=== PATIENT | male | born 1940 | race Caucasian/White ===

== ENCOUNTER 2016-10-11 20:13 | Inpatient (IN) ==
[2016-10-11] MEDS ORDERED: ACETAMINOPHEN 325 MG TABLET PO ONE (21:09)
[2016-10-11] MEDS ORDERED: ACETAMINOPHEN 325 MG TABLET ONE (21:21)
--- NOTE | 2016-10-11 21:25 | Emergency Department Note ---
Krista Benton Kasabria, am scribing for, and in the presence of, Galina Carson DO 21 :18. IAlli Debra, DO, personally performed the services described in this documentation, ascribed by Emeka Velasco in my presence, and it is both accurate and complete . Arrival - Arrival Chief Complaint: Fever Stated Complaint: CA PT/FEVER ED Nursing Triage Note: Patient complains of elevated temp of 103.0 at home. Patient has leukemia and last recieved chemotherapy on Wednesday. Temp 100.7 upon triage. Patient denies n/v but complains of persistent headache. Dr. Sanz is patient's oncologist. Patient has a history of HLD, HTN, and DM. Mode of Arrival: Wheelchair Limitations: No Limitations Source: Patient Time Seen by Provider: 10/11/16 21:08 - History of Present Illness HPI Narrative: This is a 76 y/o white male presenting to the ED with c/o elevated temperature of 103 at home. Pt is receiving chemotherapy for leukemia and his last treatment was Wednesday. Pt's temperature was 100.7 at triage. Pt denies n/v/d and states he has been constipated with the last BM being one week ago. He is a pt of Dr. Sanz. He has a PMHx of HLD, HTN, and DM. Pt feels better when laying flat. He denies taking any pain medications or medications for his fever. Consistency: constant Severity: moderate Allergies/Adverse Reactions: Allergies Allergy/AdvReac Type Severity Reaction Status Date / Time No Known Allergies Allergy Unverified 09/07/16 09:28 Home Medications: Home Medications Medication Instructions Recorded Confirmed Type Apixaban [Eliquis] 5 mg PO BID 10/11/16 10/11/16 History Atorvastatin [Lipitor] 40 mg PO DAILY 10/11/16 10/11/16 History Ezetimibe [Zetia] 10 mg PO DAILY 10/11/16 10/11/16 History Glimepiride [Amaryl] 4 mg PO BID W/MEALS 10/11/16 10/11/16 History Insulin Aspart [NovoLOG FlexPen] 10 unit SUBCUT BID 10/11/16 10/11/16 History Losartan [Cozaar] 50 mg PO DAILY 10/11/16 10/11/16 History Review of System - Review of System 12 point system: reviewed and no additional remarkable complaints except as stated - Review of System Constitutional: Present: fever (103). Absent: chills, weakness Eyes: Absent: discharge, vision change Respiratory: Absent: cough, respiratory distress, wheezing Cardiovascular: Absent: chest pain, dyspnea on exertion Gastrointestinal: Present: abdominal pain (mild tenderness ), constipation. Absent: nausea, vomiting, diarrhea Genitourinary male: Absent: dysuria Musculoskeletal: Absent: arm pain, back pain, leg pain, neck pain Skin: Present: other (ecchymosis to upper and lower extremities ). Absent: rash Neurological: Absent: headache, weakness, confusion, vertigo Psychiatric: Absent: anxiety Endocrine: Absent: fatigue Hematological/Lymphatic: Absent: easy bleeding Allergic/Immunologic: Absent: facial swelling Medical,Surgical,& Family Hx - Medical History Cardio: History of: Hypertension Neurology: No history of: Seizures Endocrine: History of: Diabetes Mellitus (IDDM), Dyslipidemia Hematology: History of: Hematologic Cancer (leukemia) - Family History Family History: Reports;: Family Diabetes - Social History Smoking Status: Never smoker Frequency of Alcohol Use: None Type of Drug Use: None Exam Vital Signs: Vital Signs Temperature 97.6 F 10/11/16 22:59 Pulse Rate 91 H 10/11/16 21:08 Respiratory Rate 20 10/11/16 21:08 Blood Pressure 147/86 10/11/16 21:08 O2 Sat by Pulse Oximetry 95 10/11/16 20:41 - General General appearance: alert, in no apparent distress, obese - Head Head exam: Present: atraumatic, normocephalic, normal inspection - Eye Eye exam: Present: normal appearance, PERRL, EOMI - ENT ENT exam: Present: normal exam, normal oropharynx, mucous membranes moist, TM's normal bilaterally, normal external ear exam - Neck Neck exam: Present: normal inspection, full ROM, trachea midline. Absent: tenderness - Chest Chest inspection: Present: normal inspection, symmetric chest wall rise. Absent : tenderness - Respiratory Respiratory exam: Present: normal lung sounds bilaterally - Cardiovascular Cardiovascular exam: Present: normal rhythm, tachycardia (mildly ), normal heart sounds. Absent: regular rate - Abdominal Exam Abdominal exam: Present: soft, distention (obese ), tenderness (mildly ), normal bowel sounds - Extremities Exam Extremities exam: Present: normal inspection, full ROM, normal capillary refill. Absent: tenderness, pedal edema, calf tenderness - Back Exam Back exam: Present: normal inspection, full ROM. Absent: tenderness - Neurological Exam Neurological exam: Present: alert, oriented X3, CN II-XII intact, normal gait, reflexes normal - Psychiatric Psychiatric exam: Present: normal affect, normal mood - Skin Skin exam: Present: warm, dry, intact. Absent: normal color (ecchymosis to upper and lower extremities ) Course Course Narrative: spoke with DR Sanz who will admit pt. pt is in stable condition Results - Labs CBC & BMP: 10/11/16 21:25 10/11/16 21:36 Lab Results: I have reviewed the patients labs - Diagnostic Findings Procedure: Chest x-ray: image reviewed by me (no acute process) Disposition Clinical Impression: Fever of unknown origin Case discussed with: patient, patient's family Disposition: Still a Patient Condition: Stable Time of Disposition: 23:05
[2016-10-11 22:07] LABS: Hematocrit 27.6 VOL% (42.0-52.0); Hemoglobin 9.8 GM/DL (14.0-18.0); Immature Granulocytes % 3.3 %; Immature Granulocytes Absolute 0.02 #; Lymphocytes # 0.5 10*3/uL (1.4-4.0); Lymphocytes % 81.7 % (21.2-54.2); Mean Corpuscular HGB Conc 35.5 GM/DL (32-36); Mean Corpuscular Hemoglobin 30 PG (27-34); Mean Corpuscular Volume 85.7 FL (87-102); Mean Platelet Volume 9.1 FL (9.6-12.0); Monocytes # 0.1 10*3/uL (0.11-0.8); Monocytes % 8.3 % (1.7-12.7); Neutrophils % 6.7 % (38.7-73.9); Red Blood Count 3.22 MC/CUMM (3.8-5.5); Red Cell Distribution Width 14.8 % (9.3-17.3)
[2016-10-11 22:09] LABS: Albumin 2.9 G/DL (3.4-5.0); Bilirubin,Total 0.8 MG/DL (0.2-1.0); Calcium 7.7 MG/DL (8.5-10.1); Osmolality,Calculated 273.8 MOS/KG (273-304); Potassium 4.2 MMOL/L (3.5-5.1); Total Protein 5.9 G/DL (6.4-8.3)
[2016-10-11 22:11] LABS: Platelet Count 21 T/CUMM (130-400); White Blood Count 0.6 T/CUMM (4-12)
[2016-10-11 22:47] LABS: Apearance,Urine CLEAR (Clear); Bilirubin,Urine Negative (Negative); Blood, Urine Negative (Negative); Glucose,Urine (UA) Negative (Negative); Ketones,Urine Negative (Negative); Mucus,Urine Occasional /LPF (Occasional); Nitrite,Urine Negative (Negative); Protein,Urine 30 MG/DL; RBC,Urine 2 /HPF (0-4); Squamous Epithelial Cell,Urine Occasional /HPF (0-10); Urine Color Yellow (Yellow); Urine Specific Gravity 1.013 (1.001-1.035); WBC,Urine <1 /HPF (0-6)
[2016-10-11] MEDS ORDERED: VANCOMYCIN INJ 1,000 MG in SODIUM CHLORIDE 0.9% 250 ML IV STA (23:03)
[2016-10-11] MEDS ORDERED: ACETAMINOPHEN 325 MG TABLET PO PRN (23:05)
[2016-10-11] MEDS ORDERED: chlorproMAZINE INJ 50 MG in SODIUM CHLORIDE 0.9% 100 ML IV PRN (23:05)
[2016-10-11] MEDS ORDERED: BENZTROPINE 2 MG/2 ML AMP IV PRN (23:05)
[2016-10-11] MEDS ORDERED: traMADol 50 MG TABLET PO PRN (23:05)
[2016-10-11] MEDS ORDERED: PROMETHAZINE INJ 25 MG in SODIUM CHLORIDE 0.9% 50 ML IV PRN (23:05)
[2016-10-11] MEDS ORDERED: LOPERAMIDE 2 MG CAPSULE PO PRN ×2 (23:05)
[2016-10-11] MEDS ORDERED: MYLANTA/LIDO VISC 2:1 300 ML BOTTLE SWISH/SPIT PRN (23:05)
[2016-10-11] MEDS ORDERED: ALPRAZolam 0.25 MG TABLET PO PRN (23:05)
[2016-10-11] MEDS ORDERED: ONDANSETRON 4 MG/2 ML VIAL IV PRN (23:05)
[2016-10-11] MEDS ORDERED: chlorproMAZINE 25 MG TABLET PO PRN (23:05)
[2016-10-11] MEDS ORDERED: ALUMINUM/MAGNES/SIMETH MAX STR 30 ML UDCUP PO PRN (23:05)
[2016-10-11] MEDS ORDERED: MYLANTA/LIDO VISC 2:1 300 ML BOTTLE SWISH/SWAL PRN (23:05)
[2016-10-11] MEDS ORDERED: chlorproMAZINE INJ 25 MG in SODIUM CHLORIDE 0.9% 100 ML IV PRN (23:05)
[2016-10-11] MEDS ORDERED: TEMAZEPAM 7.5 MG CAPSULE PO PRN (23:05)
[2016-10-11] MEDS ORDERED: guaiFENesin 200 MG/10 ML UDCUP PO PRN (23:05)
[2016-10-11] MEDS ORDERED: diphenhydrAMINE CAP 25 MG CAPSULE PO PRN (23:05)
[2016-10-11] MEDS ORDERED: MAGNESIUM HYDROXIDE SUSP 30 ML UDCUP PO PRN (23:05)
[2016-10-11 23:24] LABS: Magnesium 1.7 MG/DL (1.8-2.4); Uric Acid 5.8 MG/DL (3.5-7.2)
[2016-10-11] MEDS ORDERED: VANCOMYCIN 1,000 MG VIAL ONE (23:45)
[2016-10-12 00:10] LABS: Anisocytosis 1+; Lymphocytes 90 % (20-55); Ovalocytes Few; Total Cells Counted 100
[2016-10-12 00:11] LABS: Platelet Estimate Decreased
[2016-10-12] MEDS: SODIUM CHLORIDE 0.9% 1,000 ML IV SCH ×2 (01:08→14:43)
[2016-10-12] MEDS: LACTULOSE 20 GM/30 ML UDCUP PO PRN (08:49)
--- NOTE | 2016-10-12 09:15 | XRay Report ---
Portable chest Date: 10/11/2016 Clinical history: Fever Comparison: 06/10/2011 Technique: Portable AP sitting chest Findings: The heart is normal in size with stable left subclavian venous access catheter. Chronic scarring in the lungs with atelectasis at the lung bases. Stable mediastinum with degenerative changes. Prior cervical fusion.. Impression: Limited expiratory chest with chronic scarring in the lungs. Minimal atelectasis remaining at the lung bases. PROCEDURE INTERPRETED AT [facility] DEPARTMENT OF RADIOLOGY Final Report Signed by: Dr. Jaimie Julio
--- NOTE | 2016-10-12 09:22 | XRay Report ---
Exam: XR KUB Date: 10/11/2016 9:08 PM Comparison: 11/24/2010 Indication: Generalized abdominal pain Technique:[Supine abdomen] Findings: Decreased but persistent gaseous distention of the small bowel. There is residual air in the colon. Stable IVC filter with degenerative changes. Impression: Reduced but persistent gaseous distention of the small bowel could be related ileus, developing SBO, etc. Follow-up x-ray may be helpful if symptoms persist. IVC filter. PROCEDURE INTERPRETED AT [facility] DEPARTMENT OF RADIOLOGY Final Report Signed by: Dr. Jaimie Julio
[2016-10-12 10:17] LABS: Hemoglobin 8.4 GM/DL (14.0-18.0); Immature Granulocytes % 2.5 %; Immature Granulocytes Absolute 0.01 #; Lymphocytes # 0.3 10*3/uL (1.4-4.0); Lymphocytes % 82.5 % (21.2-54.2); Mean Corpuscular Hemoglobin 30 PG (27-34); Mean Corpuscular Volume 85.1 FL (87-102); Mean Platelet Volume 12.3 FL (9.6-12.0); Monocytes % 7.5 % (1.7-12.7); Neutrophils % 7.5 % (38.7-73.9); Red Blood Count 2.82 MC/CUMM (3.8-5.5); Red Cell Distribution Width 14.7 % (9.3-17.3)
[2016-10-12 10:21] LABS: Platelet Count 17 T/CUMM (130-400); White Blood Count 0.4 T/CUMM (4-12)
[2016-10-12 10:54] LABS: Lymphocytes 90 % (20-55); Microcytosis 1+; Total Cells Counted 100
[2016-10-12 10:55] LABS: Ovalocytes 1+; Platelet Estimate Decreased
--- NOTE | 2016-10-12 15:22 | Oncology History&Physical ---
Assessment and Plan (1) Acute myelogenous leukemia Status: Acute Assessment and plan: We will cover the patient with aggressive antibiotics at this time. We will transfuse as needed. We will await blood culture results. Current Visit: Yes History of Present Illness Chief complaint: Fever History of present illness: Mr. Edwards is a 76 year old male with history of non-Hodgkin's lymphoma approximately 5 years prior. He was treated by Dr. Ricki Jung at that time with FCR chemotherapy. Over the last several months he has had a worsening pancytopenia. This was evaluated with bone marrow biopsy and is notable for acute myelogenous leukemia. The patient has recently received his second monthly dose of decitabine chemotherapy administered days 1 through 5 intravenously. He received blood products 4 days prior at [facility]. He came in with a 24 hour history of high fever up to 102 at home with associated shaking and chills Home Medications Medication Instructions Recorded Confirmed Type Apixaban [Eliquis] 5 mg PO BID 10/11/16 10/11/16 History Atorvastatin [Lipitor] 40 mg PO DAILY 10/11/16 10/11/16 History Ezetimibe [Zetia] 10 mg PO DAILY 10/11/16 10/11/16 History Glimepiride [Amaryl] 4 mg PO BID W/MEALS 10/11/16 10/11/16 History Insulin Aspart [NovoLOG FlexPen] 10 unit SUBCUT BID 10/11/16 10/11/16 History Losartan [Cozaar] 50 mg PO DAILY 10/11/16 10/11/16 History Allergies Allergy/AdvReac Type Severity Reaction Status Date / Time No Known Allergies Allergy Unverified 09/07/16 09:28 Medical,Surgical,& Family Hx - Medical History Cardio: History of: Hypertension Neurology: No history of: Seizures HEENT: History of: HEENT Problems (sinuses) Endocrine: History of: Diabetes Mellitus (IDDM), Dyslipidemia Hematology: History of: Hematologic Cancer (leukemia) - Surgical History Cardiac Surgeries: Patient Denies: Cardiac Catheterization HEENT Surgeries: Patient denies: Tonsilectomy & Adenoidectomy Abdominal Surgeries: Surgical HX of: Appendectomy (2010), Colonoscopy - Family History Family History: Reports;: Family Diabetes - Social History Smoking Status: Never smoker Frequency of Alcohol Use: None Type of Drug Use: None - Constitutional Constitutional: Present: chills, fatigue, fever(s), night sweats, weakness - EENT Eye: Absent: loss of vision Ears: Absent: ear discharge, ear pain Nose, mouth and throat: Absent: neck mass, neck pain, odynophagia, sore throat - Respiratory Respiratory: Absent: hemoptysis Exam - Constitutional Vitals: Period Temp Pulse Resp BP Sys/Asencio Pulse Ox Last 24 Hr 97.4 F-102.1 F 61-91 18-22 114-185/62-86 93-99 General appearance: mild distress, over weight - Head Head Exam: Present: normal inspection, normocephalic - Eye Eye Exam: Present: EOMI. Absent: conjunctival injection, periorbital swelling, scleral icterus Pupils: Present: PERRL - ENT ENT exam: Present: normal external ear exam - Neck Neck exam: Absent: lymphadenopathy - Respiratory Respiratory exam: Present: CTAB. Absent: accessory muscle use, chest wall tenderness - Cardiovascular Cardiovascular exam: Present: RRR - GI/Abdominal GI/Abdominal exam: Absent: ascites, distended, guarding - Neurological Exam Neurological exam: Present: alert, oriented X3 - Psychiatric Psychiatric exam: Present: normal affect, normal mood Results - Labs CBC & BMP: 10/12/16 09:21 10/11/16 21:36
[2016-10-12] MEDS: VANCOMYCIN INJ 1,750 MG in SODIUM CHLORIDE 0.9% 500 ML IV SCH (16:15)
[2016-10-12] MEDS ORDERED: GLUCAGON 1 MG VIAL IM PRN (16:57)
[2016-10-12] MEDS ORDERED: DEXTROSE 50% 25 GM/50 ML VIAL IV PRN (16:57)
[2016-10-12] MEDS: INSULIN REGULAR 100 UNIT/ML SUBCUT SCH (20:30)
[2016-10-13] MEDS: VANCOMYCIN INJ 1,750 MG in SODIUM CHLORIDE 0.9% 500 ML IV SCH ×2 (04:06→20:25)
[2016-10-13 05:11] LABS: Basophils % 1.7 % (0.0-0.8); Eosinophils % 1.7 % (0.00-10.9); Hemoglobin 7.4 GM/DL (14.0-18.0); Lymphocytes # 0.5 10*3/uL (1.4-4.0); Lymphocytes % 86.7 % (21.2-54.2); Mean Corpuscular HGB Conc 35.2 GM/DL (32-36); Mean Corpuscular Hemoglobin 30 PG (27-34); Mean Corpuscular Volume 85.7 FL (87-102); Monocytes % 6.7 % (1.7-12.7); Neutrophils % 3.2 % (38.7-73.9); Red Blood Count 2.45 MC/CUMM (3.8-5.5); Red Cell Distribution Width 14.6 % (9.3-17.3)
[2016-10-13 05:19] LABS: Platelet Count 27 T/CUMM (130-400); White Blood Count 0.6 T/CUMM (4-12)
[2016-10-13 05:29] LABS: Calcium 7.4 MG/DL (8.5-10.1)
[2016-10-13 05:30] LABS: Magnesium 1.8 MG/DL (1.8-2.4); Osmolality,Calculated 276.7 MOS/KG (273-304); Potassium 3.8 MMOL/L (3.5-5.1)
[2016-10-13 05:48] LABS: Lymphocytes 90 % (20-55); Total Cells Counted 100
[2016-10-13 05:50] LABS: Platelet Estimate Decreased
[2016-10-13 05:51] LABS: Hypochromasia 2+; Microcytosis 2+; Ovalocytes Few
[2016-10-13] MEDS: INSULIN REGULAR 100 UNIT/ML SUBCUT SCH ×2 (07:30→16:48)
[2016-10-13] MEDS ORDERED: GLUCAGON 1 MG VIAL IM PRN (08:37)
[2016-10-13] MEDS ORDERED: DEXTROSE 50% 25 GM/50 ML VIAL IV PRN (08:37)
[2016-10-13] MEDS ORDERED: SODIUM CHLORIDE 0.9% 250 ML IV PRN (08:39)
--- NOTE | 2016-10-13 08:42 | Oncology Progress Note ---
Assessment and Plan (1) Acute myelogenous leukemia Status: Acute Assessment and plan: We will cover the patient with aggressive antibiotics at this time. We will transfuse as needed. We will await blood culture results. Current Visit: Yes Oncology Subjective PN Interval history: Patient with acute myelogenous leukemia admitted with fever. Patient with 100.4 temp this a.m. He appears in no acute distress. He does report a mild headache and some right lower quadrant tenderness. His lungs are clear. He is anemic and red blood cells will be ordered today. His blood cultures are negative. Voriconazole is to be instituted. Platelets were given yesterday with acceptable parameters today. Exam - Constitutional Vitals: Period Temp Pulse Resp BP Sys/Asencio Pulse Ox Last 24 Hr 97.6 F-102.1 F 66-80 18-20 127-234/59-98 92-95 Results - Labs CBC & BMP: 10/13/16 04:51 10/13/16 04:51
[2016-10-13] MEDS: LACTULOSE 20 GM/30 ML UDCUP PO PRN (09:27)
[2016-10-13] MEDS: VORICONAZOLE INJ 400 MG in SODIUM CHLORIDE 0.9% 100 ML IV SCH (09:29)
--- NOTE | 2016-10-13 16:35 | Physician Query Form ---
CLICK EDIT DOCUMENT TO SELECT QUERY ANSWER --> OK --> SIGN Enriqueta Morales RN Clinical [employer]ical [employer] Internship W) [phone] (f) [phone] [email or web address] PROVIDERS: Make your selection(s) from the choices in EACH section by typing an "x" and enter comments in the comment section. Please use your independent medical judgment in providing your response. This request does not imply that any particular answer is desired or expected. CLINICAL INDICATORS: (Providers should not edit this section) Acute myelogenous leukemia" "recieving chemotherapy for leukemia. last treatment was Wednesday" "worsening pancytopenia" WBC 0.6, RBC 3.22, PLT 21. Transfused 1 unit of PLT. Based on the above, could you clarify the appropriate diagnosis, if significant , that supports the above abnormalities and additional evaluation, monitoring, and/or treatment rendered: ( ) Chemo induced pancytopenia ( ) Not chemo induced pancytopenia ( x) Other, please specify: aml ( ) Clinically unable to determine COMMENTS: PLEASE ALSO DOCUMENT RESPONSE IN PROGRESS NOTES AND/OR DISCHARGE SUMMARY Use of terms such as suspected, likely, or probable (associated with a specific diagnosis that is being evaluated, monitored, or treated as if it exists) are acceptable and can be restated in the discharge summary if not ruled out. MTDD
[2016-10-13] MEDS: SODIUM CHLORIDE 0.9% 1,000 ML IV SCH ×2 (19:50→20:22)
[2016-10-14] MEDS: VORICONAZOLE INJ 400 MG in SODIUM CHLORIDE 0.9% 100 ML IV SCH ×3 (01:35→21:07)
[2016-10-14 06:25] LABS: Hematocrit 26.3 VOL% (42.0-52.0); Hemoglobin 9.4 GM/DL (14.0-18.0); Lymphocytes # 0.6 10*3/uL (1.4-4.0); Lymphocytes % 92.1 % (21.2-54.2); Mean Corpuscular HGB Conc 35.7 GM/DL (32-36); Mean Corpuscular Hemoglobin 30 PG (27-34); Mean Corpuscular Volume 83.8 FL (87-102); Mean Platelet Volume 11.5 FL (9.6-12.0); Monocytes % 1.6 % (1.7-12.7); Neutrophils % 6.3 % (38.7-73.9); Red Blood Count 3.14 MC/CUMM (3.8-5.5); Red Cell Distribution Width 14.1 % (9.3-17.3)
[2016-10-14 06:33] LABS: Platelet Count 22 T/CUMM (130-400); White Blood Count 0.6 T/CUMM (4-12)
[2016-10-14 06:53] LABS: Calcium 7.5 MG/DL (8.5-10.1); Magnesium 1.9 MG/DL (1.8-2.4); Osmolality,Calculated 275.8 MOS/KG (273-304)
[2016-10-14 06:57] LABS: Elliptocytes Few; Hypochromasia 1+; Lymphocytes 90 % (20-55); Microcytosis 1+; Platelet Estimate Decreased; Total Cells Counted 100
[2016-10-14] MEDS: SODIUM CHLORIDE 0.9% 1,000 ML IV SCH (08:06)
[2016-10-14] MEDS: INSULIN REGULAR 100 UNIT/ML SUBCUT SCH ×3 (08:06→21:06)
--- NOTE | 2016-10-14 09:04 | Oncology Progress Note ---
Assessment and Plan (1) Acute myelogenous leukemia Status: Acute Assessment and plan: We will cover the patient with aggressive antibiotics at this time. We will transfuse as needed. We will await blood culture results. Current Visit: Yes Oncology Subjective PN Interval history: AML with fever and neutropenia continuing on antibiotics with antifungal coverage added yesterday. Blood cultures are negative on admission. He is reporting bilateral lower abdominal tenderness. This is just above the pubic symphysis bilaterally. He had a small bowel movement within the last 24 hours. He does not report nausea. I have discussed ordering a CT scan of the abdomen though he has had breakfast and this will have to occur later this afternoon. He does not require transfusions today. His abdominal exam is basically unremarkable. His mood and affect are appropriate as well as his orientation and overall mental status. His daughter remains at bedside. Exam - Constitutional Vitals: Period Temp Pulse Resp BP Sys/Asencio Pulse Ox Last 24 Hr 97.5 F-100.1 F 54-72 18-22 105-198/51-90 95-99 Results - Labs CBC & BMP: 10/14/16 05:57 10/14/16 05:57
[2016-10-14] MEDS: VANCOMYCIN INJ 1,750 MG in SODIUM CHLORIDE 0.9% 500 ML IV SCH ×2 (12:11→23:49)
--- NOTE | 2016-10-14 14:19 | CT Report ---
CT abdomen pelvis w con Indication: Leukemia patient with fever and abdominal tenderness Comparison: CT chest abdomen pelvis dated December 04, 2015 Technique: Multiple axial tomographic images of the abdomen and pelvis were obtained after the administration of 100 cc Omnipaque 350 intravenous contrast. Findings: Mild dependent change of the lungs present. Grossly stable triangular subcentimeter opacity within the left lower lobe. Scattered small scarring within the lung bases. No worrisome focal hepatic abnormality. The gallbladder is grossly unremarkable. The pancreas is grossly unremarkable. The spleen is grossly unremarkable. The bilateral adrenal glands are grossly unremarkable. Grossly stable left renal cyst measuring up to 3.7 cm. No evidence of hydronephrosis. The urinary bladder is incompletely distended. The prostate and seminal vesicles are grossly unremarkable. There is no evidence of gastrointestinal obstruction or acute appendicitis. There is wall thickening of a short segment of sigmoid colon with surrounding fat stranding and small fluid suspicious for diverticulitis/colitis. Stable mild ishmael mesenteric appearance. Moderate atherosclerotic calcifications demonstrated. IVC filter present. Several of the legs of the IVC filter extend slightly beyond the lumen, similar to before. Visualized osseous and surrounding soft tissue structures appear grossly unchanged. Multilevel degenerative change of the spine present. IMPRESSION: Findings consistent with sigmoid colitis/diverticulitis. Other detailed findings as above. Findings discussed with nurse Lizeth Palafox at time of dictation. The CT exam was performed using one or more of the following dose reduction techniques: Automated exposure control, adjustment of the mA and/or kV according to patient size, or use of iterative reconstruction technique. PROCEDURE INTERPRETED AT [facility] DEPARTMENT OF RADIOLOGY Final Report Signed by: Dr Bright Warren
[2016-10-14] MEDS: LACTULOSE 20 GM/30 ML UDCUP PO PRN (15:43)
[2016-10-14] MEDS ORDERED: HEPARIN LOCK FLUSH 500 UNIT/5 ML SYRINGE IV ONE (18:36)
[2016-10-15 04:41] LABS: Hematocrit 25.8 VOL% (42.0-52.0); Hemoglobin 9.2 GM/DL (14.0-18.0); Lymphocytes # 0.5 10*3/uL (1.4-4.0); Lymphocytes % 92.6 % (21.2-54.2); Mean Corpuscular HGB Conc 35.7 GM/DL (32-36); Mean Corpuscular Hemoglobin 30 PG (27-34); Mean Corpuscular Volume 84.6 FL (87-102); Mean Platelet Volume 9.9 FL (9.6-12.0); Monocytes % 3.7 % (1.7-12.7); Neutrophils % 3.7 % (38.7-73.9); Red Blood Count 3.05 MC/CUMM (3.8-5.5)
[2016-10-15 04:51] LABS: Platelet Count 16 T/CUMM (130-400); White Blood Count 0.5 T/CUMM (4-12)
[2016-10-15 05:04] LABS: Magnesium 1.8 MG/DL (1.8-2.4); Osmolality,Calculated 276.5 MOS/KG (273-304); Potassium 4.2 MMOL/L (3.5-5.1)
[2016-10-15 05:21] LABS: Lymphocytes 90 % (20-55); Segmented Neutrophils 10 % (50-85); Total Cells Counted 100
[2016-10-15 05:22] LABS: Elliptocytes Few; Hypochromasia Slight; Microcytosis 1+; Platelet Estimate Decreased
[2016-10-15] MEDS: INSULIN REGULAR 100 UNIT/ML SUBCUT SCH ×3 (07:55→20:39)
--- NOTE | 2016-10-15 08:52 | Oncology Progress Note ---
Assessment and Plan (1) Acute myelogenous leukemia Status: Acute Assessment and plan: We will cover the patient with aggressive antibiotics at this time. We will transfuse as needed. We will await blood culture results. Current Visit: Yes Oncology Subjective PN Interval history: AML remaining on antibiotic therapy and blood transfusion support. CT is reviewed with findings consistent with diverticulitis. Mild abdominal pain is unchanged on interview and examination today. Temperature max 99. Labs are reviewed with platelets around 17 and hematocrit of 25. I will wait until tomorrow and likely transfuse both red blood cells and platelets. I have stopped his vancomycin as I do not feel it is helping his abdominal process and his blood cultures are negative Exam - Constitutional Vitals: Period Temp Pulse Resp BP Sys/Asencio Pulse Ox Last 24 Hr 97.0 F-99.0 F 63-71 18-20 123-178/58-79 94-98 Results - Labs CBC & BMP: 10/15/16 03:27 10/15/16 03:27
[2016-10-15] MEDS: VORICONAZOLE INJ 400 MG in SODIUM CHLORIDE 0.9% 100 ML IV SCH ×2 (09:35→20:39)
[2016-10-15] MEDS ORDERED: HEPARIN LOCK FLUSH 500 UNIT/5 ML SYRINGE IV ONE ×2 (11:10→15:37)
[2016-10-15] MEDS: LACTULOSE 20 GM/30 ML UDCUP PO PRN (13:00)
[2016-10-16 06:01] LABS: Hematocrit 25.5 VOL% (42.0-52.0); Hemoglobin 9.1 GM/DL (14.0-18.0); Lymphocytes # 0.4 10*3/uL (1.4-4.0); Lymphocytes % 86.4 % (21.2-54.2); Mean Corpuscular HGB Conc 35.7 GM/DL (32-36); Mean Corpuscular Hemoglobin 30 PG (27-34); Mean Corpuscular Volume 84.7 FL (87-102); Mean Platelet Volume 12.4 FL (9.6-12.0); Monocytes % 6.8 % (1.7-12.7); Neutrophils % 6.8 % (38.7-73.9); Red Blood Count 3.01 MC/CUMM (3.8-5.5); Red Cell Distribution Width 13.9 % (9.3-17.3)
[2016-10-16 06:15] LABS: Platelet Count 14 T/CUMM (130-400); White Blood Count 0.4 T/CUMM (4-12)
[2016-10-16 06:20] LABS: Hypochromasia 1+; Lymphocytes 100 % (20-55); Microcytosis 1+; Ovalocytes Slight; Platelet Estimate Decreased; Total Cells Counted 100
[2016-10-16] MEDS: INSULIN REGULAR 100 UNIT/ML SUBCUT SCH ×2 (07:48→19:14)
[2016-10-16] MEDS ORDERED: SODIUM CHLORIDE 0.9% 250 ML IV PRN (08:26)
--- NOTE | 2016-10-16 08:29 | Oncology Progress Note ---
Assessment and Plan (1) Diverticulitis Status: Acute Current Visit: Yes (2) Acute myelogenous leukemia Status: Acute Current Visit: Yes Oncology Subjective PN Interval history: Mr. Edwards has no new complaints today. He still has some tenderness in his lower abdomen consistent with diverticulitis which was seen on the CT scan. He is being covered with Fortaz at this point. His platelet count is at 14,000 today so we will give him 1 unit of platelets. He denies any hematuria, bright red blood per rectum, or melena. His hemoglobin is stable so I will hold off on transfusion of red blood cells today. Him and I briefly discussed his CODE STATUS and he would like to remain full code at this point but became very emotional while talking about this. Given his age and prognosis from his acute myelogenous leukemia, I do think he should reconsider this but I will defer that conversation to his primary oncologist. Hopefully this might become an issue this weekend and he will do well. I do not anticipate him being discharged home for at least a few more days. We are withholding granulocytes stimulating factor due to his acute leukemia. Exam - Constitutional Vitals: Period Temp Pulse Resp BP Sys/Asencio Pulse Ox Last 24 Hr 97.9 F-98.5 F 56-78 18-93 145-164/67-90 93-97 General appearance: no acute distress, over weight - Head Head Exam: Present: normocephalic, atraumatic - Eye Eye Exam: Present: EOMI Pupils: Present: PERRL - ENT ENT exam: Present: normal exam, normal oropharynx - Neck Neck exam: Absent: lymphadenopathy, thyromegaly - Respiratory Respiratory exam: Present: CTAB. Absent: wheezes - Cardiovascular Cardiovascular exam: Present: RRR. Absent: JVD, systolic murmur - GI/Abdominal GI/Abdominal exam: Present: soft. Absent: ascites, distended, mass - Neurological Exam Neurological exam: Present: alert, oriented X3 Results - Labs CBC & BMP: 10/16/16 05:22 10/15/16 03:27 Lab Results: I have reviewed the past 24 hour labs
[2016-10-16] MEDS: VORICONAZOLE INJ 400 MG in SODIUM CHLORIDE 0.9% 100 ML IV SCH ×2 (09:47→20:45)
[2016-10-17 05:36] LABS: Hematocrit 25.2 VOL% (42.0-52.0); Hemoglobin 8.9 GM/DL (14.0-18.0); Lymphocytes # 0.5 10*3/uL (1.4-4.0); Lymphocytes % 90.2 % (21.2-54.2); Mean Corpuscular HGB Conc 35.3 GM/DL (32-36); Mean Corpuscular Hemoglobin 30 PG (27-34); Mean Corpuscular Volume 84.6 FL (87-102); Mean Platelet Volume 10.1 FL (9.6-12.0); Monocytes % 3.9 % (1.7-12.7); Neutrophils % 5.9 % (38.7-73.9); Red Blood Count 2.98 MC/CUMM (3.8-5.5); Red Cell Distribution Width 13.9 % (9.3-17.3)
[2016-10-17 05:43] LABS: White Blood Count 0.5 T/CUMM (4-12)
[2016-10-17 05:44] LABS: Platelet Count 23 T/CUMM (130-400)
[2016-10-17 06:13] LABS: Hypochromasia Slight; Lymphocytes 100 % (20-55); Microcytosis 1+; Osmolality,Calculated 284.1 MOS/KG (273-304); Ovalocytes Slight; Platelet Estimate Decreased; Potassium 3.9 MMOL/L (3.5-5.1); Total Cells Counted 100
[2016-10-17] MEDS: INSULIN REGULAR 100 UNIT/ML SUBCUT SCH ×3 (08:36→20:04)
[2016-10-17] MEDS: VORICONAZOLE INJ 400 MG in SODIUM CHLORIDE 0.9% 100 ML IV SCH ×2 (08:40→20:01)
--- NOTE | 2016-10-17 10:24 | Oncology Progress Note ---
Assessment and Plan (1) Diverticulitis Status: Acute Current Visit: Yes (2) Acute myelogenous leukemia Status: Acute Current Visit: Yes Oncology Subjective PN Interval history: Mr. Edwards seems to be doing well today. He still has vague lower abdominal pain secondary to his known diverticulitis. His platelet count responded well to transfusion and is up to 23 today. His hemoglobin remained stable at 8.9. I will hold off on transfusing red cells. He remains afebrile. We will continue with IV antibiotics. He will likely be here at least 2-3 more days to receive antimicrobial therapy. He expressed to me this morning that he would like to be DNR if it comes to that. Exam - Constitutional Vitals: Period Temp Pulse Resp BP Sys/Asencio Pulse Ox Last 24 Hr 96.6 F-98.6 F 53-92 18-20 148-193/65-95 93-98 General appearance: normal weight, no acute distress - Head Head Exam: Present: normocephalic, atraumatic - Eye Eye Exam: Present: EOMI. Absent: scleral icterus Pupils: Present: PERRL - Neck Neck exam: Absent: lymphadenopathy, thyromegaly - Respiratory Respiratory exam: Present: CTAB. Absent: wheezes - Cardiovascular Cardiovascular exam: Present: RRR. Absent: JVD, systolic murmur - GI/Abdominal GI/Abdominal exam: Present: tenderness, soft. Absent: ascites, distended, mass - Neurological Exam Neurological exam: Present: alert, oriented X3 Results - Labs CBC & BMP: 10/17/16 04:24 10/17/16 04:24 Lab Results: I have reviewed the past 24 hour labs
[2016-10-17] MEDS: LACTULOSE 20 GM/30 ML UDCUP PO PRN (14:17)
[2016-10-18 06:16] LABS: Hematocrit 26.5 VOL% (42.0-52.0); Hemoglobin 9.3 GM/DL (14.0-18.0); Lymphocytes # 0.5 10*3/uL (1.4-4.0); Mean Corpuscular HGB Conc 35.1 GM/DL (32-36); Mean Corpuscular Hemoglobin 30 PG (27-34); Mean Corpuscular Volume 84.1 FL (87-102); Mean Platelet Volume 11.2 FL (9.6-12.0); Red Blood Count 3.15 MC/CUMM (3.8-5.5); Red Cell Distribution Width 13.6 % (9.3-17.3)
[2016-10-18 06:21] LABS: White Blood Count 0.5 T/CUMM (4-12)
[2016-10-18 06:22] LABS: Platelet Count 18 T/CUMM (130-400)
[2016-10-18 06:38] LABS: Calcium 8.2 MG/DL (8.5-10.1); Osmolality,Calculated 279.4 MOS/KG (273-304); Potassium 3.7 MMOL/L (3.5-5.1)
[2016-10-18 06:44] LABS: Hypochromasia 1+; Lymphocytes 100 % (20-55); Microcytosis 1+; Ovalocytes Slight; Platelet Estimate Decreased; Total Cells Counted 100
[2016-10-18] MEDS: INSULIN REGULAR 100 UNIT/ML SUBCUT SCH ×2 (08:06→20:32)
[2016-10-18] MEDS: VORICONAZOLE INJ 400 MG in SODIUM CHLORIDE 0.9% 100 ML IV SCH ×2 (08:47→20:33)
--- NOTE | 2016-10-18 09:15 | Oncology Progress Note ---
Assessment and Plan (1) Diverticulitis Status: Acute Current Visit: Yes (2) Acute myelogenous leukemia Status: Acute Current Visit: Yes Oncology Subjective PN Interval history: Mr. Edwards is essentially stable today. His hemoglobin is above 9 so he does not need red cell transfusion. His platelet count is at 18,000 but I will hold off on transfusion for now. I think we are getting close to where we could consider discharge home given his low neutrophil count we will keep in the hospital for now for further IV antibiotics. He has not any fevers. He is not having any bright red blood per rectum. His mood is improved and he does not seem as emotional during our conversations now. He is DNR for comes to that. Exam - Constitutional Vitals: Period Temp Pulse Resp BP Sys/Asencio Pulse Ox Last 24 Hr 97.8 F-98.4 F 54-63 18-20 149-179/65-76 93-96 General appearance: no acute distress, over weight - Head Head Exam: Present: normocephalic, atraumatic - Eye Eye Exam: Present: EOMI Pupils: Present: PERRL - ENT ENT exam: Present: normal exam, normal oropharynx - Neck Neck exam: Absent: lymphadenopathy, thyromegaly - Respiratory Respiratory exam: Present: CTAB. Absent: wheezes - Cardiovascular Cardiovascular exam: Present: RRR. Absent: JVD - GI/Abdominal GI/Abdominal exam: Present: soft. Absent: ascites, distended, mass - Neurological Exam Neurological exam: Present: alert, oriented X3 - Psychiatric Psychiatric exam: Present: normal affect, normal mood - Skin Skin exam: Present: warm, dry Results - Labs CBC & BMP: 10/18/16 05:38 10/18/16 05:38 Lab Results: I have reviewed the past 24 hour labs
[2016-10-18] MEDS: LACTULOSE 20 GM/30 ML UDCUP PO PRN (14:24)
[2016-10-18] MEDS ORDERED: HEPARIN LOCK FLUSH 500 UNIT/5 ML SYRINGE IV ONE (15:36)
[2016-10-19 06:12] LABS: Hematocrit 26.6 VOL% (42.0-52.0); Hemoglobin 9.4 GM/DL (14.0-18.0); Lymphocytes # 0.5 10*3/uL (1.4-4.0); Mean Corpuscular HGB Conc 35.3 GM/DL (32-36); Mean Corpuscular Hemoglobin 30 PG (27-34); Mean Platelet Volume 12.7 FL (9.6-12.0); Monocytes % 7.4 % (1.7-12.7); Neutrophils % 5.6 % (38.7-73.9); Red Blood Count 3.13 MC/CUMM (3.8-5.5); Red Cell Distribution Width 13.5 % (9.3-17.3)
[2016-10-19 06:30] LABS: Platelet Count 18 T/CUMM (130-400); White Blood Count 0.5 T/CUMM (4-12)
[2016-10-19 06:40] LABS: Calcium 8.1 MG/DL (8.5-10.1); Osmolality,Calculated 281.1 MOS/KG (273-304); Potassium 3.7 MMOL/L (3.5-5.1)
[2016-10-19 06:51] LABS: Lymphocytes 90 % (20-55); Total Cells Counted 100
[2016-10-19 06:52] LABS: Hypochromasia Slight; Microcytosis 1+; Ovalocytes Slight; Platelet Estimate Decreased
[2016-10-19] MEDS: INSULIN REGULAR 100 UNIT/ML SUBCUT SCH (08:01)
--- NOTE | 2016-10-19 08:48 | Discharge Summary ---
Hospital Course - Hospital Course Hospital Course: Patient with recently diagnosed acute myelogenous leukemia. He is status post 2 cycles of Dacogen therapy. He was admitted with fever. He has a small amount of suprapubic abdominal pain. This was consistent with diverticulitis seen on CT scan. His blood cultures were negative. Urinalysis is unremarkable. He has required both red blood cell and platelet transfusion while hospitalized and remains pancytopenic. His temperature curve is back to normal and he is tolerating oral intake. He will be discharged on 10 days of ciprofloxacin and Flagyl by mouth with Wednesday lab checks in the office. He has an office visit for November 02 for consideration of third cycle of chemotherapy physical exam shows pleasant mood and affect elderly white male obese body habitus nontender abdomen awake alert in no acute distress Diagnosis - Discharge Diagnosis (1) Acute myelogenous leukemia Status: Acute Discharge Plan - Discharge Medications No Action Insulin Aspart [NovoLOG FlexPen] 10 unit SUBCUT BID Ezetimibe [Zetia] 10 mg PO DAILY Atorvastatin [Lipitor] 40 mg PO DAILY Apixaban [Eliquis] 5 mg PO BID Losartan [Cozaar] 50 mg PO DAILY Glimepiride [Amaryl] 4 mg PO BID W/MEALS - Follow Up or Referral - Forms/Instructions Exam - Constitutional Vitals: Period Temp Pulse Resp BP Sys/Asencio Pulse Ox Last 24 Hr 97.6 F-98.5 F 56-63 16-20 153-195/65-81 92-95 Discharge Results Labs on day of discharge: Labs from last 24 hours 10/19/16 10/19/16 10/19/16 07:36 05:46 05:46 WBC 0.5 L* RBC 3.13 L Hgb 9.4 L Hct 26.6 L MCV 85.0 L MCH 30 MCHC 35.3 RDW 13.5 Plt Count 18 L* MPV 12.7 H Neut % (Auto) 5.6 L Lymph % (Auto) 87.0 H [place] % (Auto) 7.4 Eos % (Auto) 0.0 Baso % (Auto) 0.0 Neut # (Auto) 0.0 L Lymph # (Auto) 0.5 L [place] # (Auto) 0.0 L Eos # (Auto) 0.0 Baso # (Auto) 0.0 Total Counted 100 Immature Gran % 0.0 Nucleated RBC % 0.0 Immature Gran # 0.00 Lymphocytes 90 H Monocytes 10 Nucleated RBCs # 0.00 Platelet Estimate Decreased Hypochromasia Slight Microcytosis 1+ Ovalocytes Slight Sodium 142 Potassium 3.7 Chloride 103 Carbon Dioxide 30 Anion Gap 12.7 BUN 12 Creatinine 1.20 GFR Calculation 84 BUN/Creatinine Ratio 10.00 Glucose 83 POC Glucose 80 Calculated Osmolality 281.1 Calcium 8.1 L 10/18/16 19:48 WBC RBC Hgb Hct MCV MCH MCHC RDW Plt Count MPV Neut % (Auto) Lymph % (Auto) [place] % (Auto) Eos % (Auto) Baso % (Auto) Neut # (Auto) Lymph # (Auto) [place] # (Auto) Eos # (Auto) Baso # (Auto) Total Counted Immature Gran % Nucleated RBC % Immature Gran # Lymphocytes Monocytes Nucleated RBCs # Platelet Estimate Hypochromasia Microcytosis Ovalocytes Sodium Potassium Chloride Carbon Dioxide Anion Gap BUN Creatinine GFR Calculation BUN/Creatinine Ratio Glucose POC Glucose 343 H Calculated Osmolality Calcium DS: Provider Date of admission: 10/11/16 23:05 Primary care physician: Jesse Austin, Attending physician on admission: Fan Sanz MD Discharging clinician: Fan Sanz MD
[2016-10-19] MEDS: VORICONAZOLE INJ 400 MG in SODIUM CHLORIDE 0.9% 100 ML IV SCH (09:54)
[2016-10-19 16:11] VITALS: BP 164/82
== END 2016-10-19 16:34 | disposition home or self-care (01) | DRG 392 ==
LOC: N.ED 20:13 → N.EDINP 23:05 → N.4E 10-12 00:19
PROVIDERS: ADMIT Specialist; ATTEND Specialist

== ENCOUNTER 2016-10-29 13:50 | Inpatient (IN) ==
[2016-10-29] MEDS ORDERED: DEXTROSE 50% 25 GM/50 ML VIAL IV PRN (15:01)
[2016-10-29] MEDS ORDERED: GLUCAGON 1 MG VIAL IM PRN (15:01)
[2016-10-29] MEDS ORDERED: guaiFENesin 200 MG/10 ML UDCUP PO PRN (15:19)
[2016-10-29] MEDS ORDERED: ONDANSETRON 4 MG/2 ML VIAL IV PRN (15:19)
[2016-10-29] MEDS ORDERED: ALUMINUM/MAGNES/SIMETH MAX STR 30 ML UDCUP PO PRN (15:19)
[2016-10-29] MEDS ORDERED: PROMETHAZINE INJ 25 MG in SODIUM CHLORIDE 0.9% 50 ML IV PRN (15:19)
[2016-10-29] MEDS ORDERED: MAGNESIUM HYDROXIDE SUSP 30 ML UDCUP PO PRN (15:19)
[2016-10-29] MEDS ORDERED: MYLANTA/LIDO VISC 2:1 300 ML BOTTLE SWISH/SPIT PRN (15:19)
[2016-10-29] MEDS ORDERED: BENZTROPINE 2 MG/2 ML AMP IV PRN (15:19)
[2016-10-29] MEDS ORDERED: LOPERAMIDE 2 MG CAPSULE PO PRN ×2 (15:19)
[2016-10-29] MEDS ORDERED: ALPRAZolam 0.25 MG TABLET PO PRN (15:19)
[2016-10-29] MEDS ORDERED: ACETAMINOPHEN 325 MG TABLET PO PRN (15:19)
[2016-10-29] MEDS ORDERED: diphenhydrAMINE CAP 25 MG CAPSULE PO PRN (15:19)
[2016-10-29] MEDS ORDERED: chlorproMAZINE INJ 50 MG in SODIUM CHLORIDE 0.9% 100 ML IV PRN (15:19)
[2016-10-29] MEDS ORDERED: traMADol 50 MG TABLET PO PRN (15:19)
[2016-10-29] MEDS ORDERED: LACTULOSE 20 GM/30 ML UDCUP PO PRN (15:19)
[2016-10-29] MEDS ORDERED: MYLANTA/LIDO VISC 2:1 300 ML BOTTLE SWISH/SWAL PRN (15:19)
[2016-10-29] MEDS ORDERED: chlorproMAZINE 25 MG TABLET PO PRN (15:19)
[2016-10-29] MEDS ORDERED: chlorproMAZINE INJ 25 MG in SODIUM CHLORIDE 0.9% 100 ML IV PRN (15:19)
[2016-10-29] MEDS: SODIUM CHLORIDE 0.45% 1,000 ML IV SCH (16:36)
[2016-10-29] MEDS: cefTRIAXone 1,000 MG in SODIUM CHLORIDE 0.9% 100 ML IV SCH (16:37)
[2016-10-29] MEDS: FLUCONAZOLE INJ 400 MG in PREMIX 1 EACH IV SCH (18:03)
--- NOTE | 2016-10-29 18:06 | XRay Report ---
Exam: XR chest 1V portable Date: 10/29/2016 2:57 PM Indication: Leukemia fever Comparison: 10/11/2016 Technical: AP portable Findings: A subclavian port is present from a left-sided approach with power port catheter. The distal tip is in the superior vena cava. Lateral marginal osteophytes are present. No obvious infiltrate or effusion. Mediastinum is intact. Oxygen tubing is present. No pneumothorax. Impression: 1. Left-sided subclavian port catheter 2. No acute cardiopulmonary pathology 3. Degenerative spondylosis change thoracic spine. PROCEDURE INTERPRETED AT [facility] DEPARTMENT OF RADIOLOGY Final Report Signed by: Dr. Jesse Mendez
[2016-10-29] MEDS: INSULIN LISPRO 100 UNIT/ML SUBCUT SCH ×2 (21:05→21:09)
[2016-10-29] MEDS: INSULIN REGULAR 100 UNIT/ML SUBCUT SCH (21:05)
[2016-10-30 08:23] LABS: Hematocrit 24.1 VOL% (42.0-52.0); Hemoglobin 8.5 GM/DL (14.0-18.0); Lymphocytes # 0.4 10*3/uL (1.4-4.0); Lymphocytes % 88.4 % (21.2-54.2); Mean Corpuscular HGB Conc 35.3 GM/DL (32-36); Mean Corpuscular Hemoglobin 30 PG (27-34); Mean Corpuscular Volume 84.6 FL (87-102); Mean Platelet Volume 10.6 FL (9.6-12.0); Monocytes % 4.7 % (1.7-12.7); Neutrophils % 6.9 % (38.7-73.9); Platelet Count 46 T/CUMM (130-400); Red Blood Count 2.85 MC/CUMM (3.8-5.5); Red Cell Distribution Width 13.2 % (9.3-17.3); White Blood Count 0.4 T/CUMM (4-12)
[2016-10-30 08:50] LABS: Albumin 2.8 G/DL (3.4-5.0); Bilirubin,Total 0.5 MG/DL (0.2-1.0); Calcium 7.8 MG/DL (8.5-10.1); Osmolality,Calculated 283.5 MOS/KG (273-304); Potassium 4.1 MMOL/L (3.5-5.1); Total Protein 5.8 G/DL (6.4-8.3)
[2016-10-30 09:05] LABS: Hypochromasia 2+; Lymphocytes 80 % (20-55); Microcytosis 2+; Platelet Estimate Decreased; Segmented Neutrophils 20 % (50-85); Total Cells Counted 100
[2016-10-30] MEDS: LOSARTAN 25 MG TABLET PO SCH (09:39)
[2016-10-30] MEDS: SODIUM CHLORIDE 0.45% 1,000 ML IV SCH (09:40)
[2016-10-30] MEDS: INSULIN REGULAR 100 UNIT/ML SUBCUT SCH ×2 (10:26→17:34)
[2016-10-30] MEDS: INSULIN LISPRO 100 UNIT/ML SUBCUT SCH ×2 (10:26→21:23)
[2016-10-30] MEDS ORDERED: LIDOCAINE 2% VISCOUS 100 ML BOTTLE SWISH/SPIT PRN (11:57)
[2016-10-30] MEDS ORDERED: SODIUM CHLORIDE 0.9% 250 ML IV PRN (11:58)
--- NOTE | 2016-10-30 12:28 | Oncology History&Physical ---
Assessment and Plan (1) Acute myelogenous leukemia Status: Acute Assessment and plan: We will support with 2 units red blood cell transfusion today. We are using viscous lidocaine as needed odynaphasia. No thrush is noted. Continue IV fluids with gentle hydration. Patient is diabetic and is on sliding scale. History of coronary artery disease with anticoagulation discontinued secondary to thrombocytopenia. Current Visit: No History of Present Illness Chief complaint: Weakness History of present illness: Mr. Edwards is a 76 year old male With recent diagnosis of acute myelogenous leukemia. His history is notable for B-cell lymphoma treated with fludarabine based chemotherapy by Dr. Jung approximately 6-7 years prior. He was seen on Wednesday. He has received approximately 2 cycles of Dacogen intravenously. His platelets have showed a very mild response. He is still requiring red blood cells 2 of which will be given today. He was evaluated yesterday in the office with dehydration decreased p.o. intake and I done aphasia. He appears to have a large aphthous ulcer at the right posterior lower gumline which is inhibiting his oral intake. He denies fever at present Home Medications Medication Instructions Recorded Confirmed Type Apixaban [Eliquis] 5 mg PO BID 10/11/16 10/29/16 History Atorvastatin [Lipitor] 40 mg PO DAILY 10/11/16 10/29/16 History Ezetimibe [Zetia] 10 mg PO DAILY 10/11/16 10/29/16 History Glimepiride [Amaryl] 4 mg PO BID W/MEALS 10/11/16 10/29/16 History Insulin Aspart [NovoLOG FlexPen] 10 unit SUBCUT BID 10/11/16 10/29/16 History Losartan [Cozaar] 50 mg PO DAILY 10/11/16 10/29/16 History Amoxicillin/Clav Tab [Augmentin 875 mg PO BID 10/29/16 10/29/16 History Tab] Ciprofloxacin Tab [Cipro Tab] 500 mg PO BID 10/29/16 10/29/16 History metroNIDAZOLE TAB [Flagyl Cap/Tab] 500 mg PO BID 10/29/16 10/29/16 History Allergies Allergy/AdvReac Type Severity Reaction Status Date / Time No Known Allergies Allergy Unverified 09/07/16 09:28 Medical,Surgical,& Family Hx - Medical History Cardio: History of: Hypertension Neurology: No history of: Seizures HEENT: History of: HEENT Problems (sinuses) Endocrine: History of: Diabetes Mellitus (IDDM), Dyslipidemia Hematology: History of: Hematologic Cancer (leukemia) - Surgical History Cardiac Surgeries: Patient Denies: Cardiac Catheterization HEENT Surgeries: Patient denies: Tonsilectomy & Adenoidectomy Abdominal Surgeries: Surgical HX of: Appendectomy (2010), Colonoscopy - Family History Family History: Reports;: Family Diabetes - Social History Smoking Status: Never smoker - Constitutional Constitutional: Present: fatigue, malaise, weakness. Absent: fever(s), night sweats - EENT Eye: Absent: diplopia, loss of vision Ears: Absent: decreased hearing, ear discharge, ear pain Nose, mouth and throat: Present: dysphagia, odynophagia, sore throat. Absent: epistaxis, neck mass - Cardiovascular Cardiovascular ROS IM: Absent: chest pain - Respiratory Respiratory: Absent: cough, hemoptysis Exam - Constitutional Vitals: Period Temp Pulse Resp BP Sys/Asencio Pulse Ox Last 24 Hr 97.8 F-99.2 F 67-92 16-20 126-150/66-80 96-100 General appearance: mild distress, over weight - Head Head Exam: Present: normocephalic, atraumatic - Eye Eye Exam: Present: EOMI. Absent: conjunctival injection, periorbital swelling, scleral icterus Pupils: Present: PERRL - ENT ENT exam: Present: normal external ear exam - Neck Neck exam: Present: normal inspection. Absent: lymphadenopathy, thyromegaly - Respiratory Respiratory exam: Present: CTAB. Absent: accessory muscle use, chest wall tenderness - Cardiovascular Cardiovascular exam: Present: RRR - GI/Abdominal GI/Abdominal exam: Present: soft. Absent: ascites, distended, guarding - Extremities Exam Extremities exam: Absent: edema - Neurological Exam Neurological exam: Present: alert, oriented X3 Results - Labs CBC & BMP: 10/30/16 08:10 10/30/16 08:10
[2016-10-30] MEDS: cefTRIAXone 1,000 MG in SODIUM CHLORIDE 0.9% 100 ML IV SCH (14:43)
[2016-10-30] MEDS: FLUCONAZOLE INJ 400 MG in PREMIX 1 EACH IV SCH (17:35)
[2016-10-31] MEDS: SODIUM CHLORIDE 0.45% 1,000 ML IV SCH ×2 (04:20→16:41)
[2016-10-31] MEDS: INSULIN LISPRO 100 UNIT/ML SUBCUT SCH ×2 (08:01→20:19)
[2016-10-31] MEDS: INSULIN REGULAR 100 UNIT/ML SUBCUT SCH ×3 (08:01→16:41)
[2016-10-31 08:05] LABS: Hematocrit 27.3 VOL% (42.0-52.0); Hemoglobin 9.8 GM/DL (14.0-18.0); Lymphocytes # 0.5 10*3/uL (1.4-4.0); Lymphocytes % 87.5 % (21.2-54.2); Mean Corpuscular HGB Conc 35.9 GM/DL (32-36); Mean Corpuscular Hemoglobin 29 PG (27-34); Mean Corpuscular Volume 81.7 FL (87-102); Mean Platelet Volume 10.3 FL (9.6-12.0); Monocytes % 5.4 % (1.7-12.7); Neutrophils % 7.1 % (38.7-73.9); Red Blood Count 3.34 MC/CUMM (3.8-5.5); Red Cell Distribution Width 13.7 % (9.3-17.3)
[2016-10-31 08:08] LABS: Platelet Count 49 T/CUMM (130-400); White Blood Count 0.6 T/CUMM (4-12)
[2016-10-31 08:34] LABS: Lymphocytes 100 % (20-55); Total Cells Counted 100
[2016-10-31 08:35] LABS: Hypochromasia 1+; Microcytosis 1+; Ovalocytes Slight; Platelet Estimate Decreased
[2016-10-31 08:39] LABS: Albumin 2.6 G/DL (3.4-5.0); Bilirubin,Total 0.6 MG/DL (0.2-1.0); Calcium 7.5 MG/DL (8.5-10.1); Osmolality,Calculated 280.8 MOS/KG (273-304); Potassium 4.2 MMOL/L (3.5-5.1); Total Protein 5.6 G/DL (6.4-8.3)
--- NOTE | 2016-10-31 09:18 | Oncology Progress Note ---
Oncology Subjective PN Interval history: Acute myelogenous leukemia: Mr. Edwards is an elderly patient with acute myelogenous leukemia.Blood work today includes a white cell count of 600. He feels very weak today. He has some very vague chest tightness. I do not think this is cardiac but he is obese and elderly and it is possible. He was admitted with odynophagia. Heart sounds are relatively normal and he has a regular rhythm. His lungs are clear. Bowel sounds are present. Leukopenia: See above comments. Anemia: Hemoglobin of 9.8 today. Thrombocytopenia: Platelet count of 49,000 He has a remote history of non-Hodgkin's lymphoma. On physical examination, he is both chronically and acutely ill appearing. Lungs: He is tachypnea. His lungs are clear of any rubs, rales or rhonchi in his chest moves symmetrically. Cardiovascular: His heart rhythm is regular without murmur, gallop or rub. There is no jugular venous distention, clubbing or cyanosis. Abdomen: Mild pressure on his epigastric area did not elicit any pain. There are no definite masses or ascites. Exam - Constitutional Vitals: Period Temp Pulse Resp BP Sys/Asencio Pulse Ox Last 24 Hr 97.8 F-99.4 F 70-93 18-20 143-177/62-90 94-98 Results - Labs CBC & BMP: 10/31/16 07:54 10/31/16 07:54
[2016-10-31] MEDS: LOSARTAN 25 MG TABLET PO SCH (10:03)
[2016-10-31] MEDS: cefTRIAXone 1,000 MG in SODIUM CHLORIDE 0.9% 100 ML IV SCH (15:21)
[2016-10-31] MEDS: FLUCONAZOLE INJ 400 MG in PREMIX 1 EACH IV SCH (17:17)
[2016-11-01] MEDS: SODIUM CHLORIDE 0.45% 1,000 ML IV SCH (05:44)
[2016-11-01 06:41] LABS: Hematocrit 27.2 VOL% (42.0-52.0); Hemoglobin 9.6 GM/DL (14.0-18.0); Lymphocytes # 0.3 10*3/uL (1.4-4.0); Lymphocytes % 89.2 % (21.2-54.2); Mean Corpuscular HGB Conc 35.3 GM/DL (32-36); Mean Corpuscular Hemoglobin 29 PG (27-34); Mean Corpuscular Volume 82.7 FL (87-102); Monocytes % 5.4 % (1.7-12.7); Neutrophils % 5.4 % (38.7-73.9); Red Blood Count 3.29 MC/CUMM (3.8-5.5); Red Cell Distribution Width 13.2 % (9.3-17.3)
[2016-11-01 06:45] LABS: Platelet Count 46 T/CUMM (130-400); White Blood Count 0.4 T/CUMM (4-12)
[2016-11-01 07:01] LABS: Hypochromasia 1+; Lymphocytes 90 % (20-55); Total Cells Counted 100
[2016-11-01 07:02] LABS: Microcytosis 1+; Ovalocytes Few; Platelet Estimate Decreased
[2016-11-01 07:17] LABS: Albumin 2.5 G/DL (3.4-5.0); Bilirubin,Total 0.8 MG/DL (0.2-1.0); Calcium 7.8 MG/DL (8.5-10.1); Potassium 4.3 MMOL/L (3.5-5.1); Total Protein 5.4 G/DL (6.4-8.3)
[2016-11-01] MEDS: INSULIN REGULAR 100 UNIT/ML SUBCUT SCH ×2 (08:43→21:55)
--- NOTE | 2016-11-01 09:45 | Oncology Progress Note ---
Oncology Subjective PN Interval history: Acute myelogenous leukemia: Mr. Edwards is an elderly patient with acute myelogenous leukemia. This is advanced disease that appears to be refractory. He feels very weak today. He was admitted with odynophagia. Leukopenia: See above comments. His white cell count today is 400. Anemia:His hemoglobin today is 9.6. Thrombocytopenia: His platelet count today is 46,000. He has a remote history of non-Hodgkin's lymphoma. He is chronically ill with what probably is and stage disease.Renal function remains normal. His serum albumin is 2.5 reflecting malnutrition. He generally feels bad. He is weak. He is having bad dreams. He is having a great deal of generalized discomfort. We are continuing symptomatic supportive care. On physical examination his oral mucosa may appear a little atrophic but otherwise his pharynx and oral mucosa and tongue are normal. His voice is clear. He has no obvious neck masses. Breath sounds are somewhat coarse without rubs, rales or rhonchi. His chest moves symmetrically with respiration. He is somewhat tachypneic. Heart sounds are normal. He has abdominal protuberance but not necessarily distention and there is no obvious tenderness. Cranial nerves II through XII are intact and he has no focal neurologic deficits. Musculoskeletal examination reveals that he is generally weak. However, he appears to be fully oriented and alert. He is discouraged and the reasons are obvious. This is advanced, and stage disease. Exam - Constitutional Vitals: Period Temp Pulse Resp BP Sys/Asencio Pulse Ox Last 24 Hr 97.5 F-98.7 F 70-88 18-20 154-185/75-81 96-100 Results - Labs CBC & BMP: 11/01/16 06:27 11/01/16 06:27
[2016-11-01] MEDS: LOSARTAN 25 MG TABLET PO SCH (09:53)
[2016-11-01] MEDS: INSULIN LISPRO 100 UNIT/ML SUBCUT SCH ×2 (13:27→22:05)
[2016-11-01] MEDS: cefTRIAXone 1,000 MG in SODIUM CHLORIDE 0.9% 100 ML IV SCH (15:11)
[2016-11-01] MEDS: FLUCONAZOLE INJ 400 MG in PREMIX 1 EACH IV SCH (16:49)
[2016-11-02] MEDS: SODIUM CHLORIDE 0.45% 1,000 ML IV SCH ×2 (03:25→11:26)
[2016-11-02 08:13] LABS: Hematocrit 26.7 VOL% (42.0-52.0); Hemoglobin 9.5 GM/DL (14.0-18.0); Lymphocytes # 0.4 10*3/uL (1.4-4.0); Lymphocytes % 89.4 % (21.2-54.2); Mean Corpuscular HGB Conc 35.6 GM/DL (32-36); Mean Corpuscular Hemoglobin 29 PG (27-34); Mean Corpuscular Volume 82.2 FL (87-102); Mean Platelet Volume 10.4 FL (9.6-12.0); Monocytes % 4.3 % (1.7-12.7); Neutrophils % 6.3 % (38.7-73.9); Platelet Count 53 T/CUMM (130-400); Red Blood Count 3.25 MC/CUMM (3.8-5.5); Red Cell Distribution Width 13.4 % (9.3-17.3)
[2016-11-02 08:15] LABS: White Blood Count 0.5 T/CUMM (4-12)
[2016-11-02 08:36] LABS: Hypochromasia 2+; Lymphocytes 95 % (20-55); Microcytosis 1+; Platelet Estimate Decreased; Total Cells Counted 100
[2016-11-02] MEDS: INSULIN REGULAR 100 UNIT/ML SUBCUT SCH ×2 (08:44→16:39)
[2016-11-02] MEDS: INSULIN LISPRO 100 UNIT/ML SUBCUT SCH ×2 (08:44→22:08)
[2016-11-02] MEDS: LOSARTAN 25 MG TABLET PO SCH (08:44)
[2016-11-02 08:49] LABS: Albumin 2.5 G/DL (3.4-5.0); Bilirubin,Total 0.9 MG/DL (0.2-1.0); Calcium 7.9 MG/DL (8.5-10.1); Osmolality,Calculated 276.1 MOS/KG (273-304); Potassium 4.2 MMOL/L (3.5-5.1); Total Protein 5.6 G/DL (6.4-8.3)
--- NOTE | 2016-11-02 09:02 | Oncology Progress Note ---
Assessment and Plan (1) Acute myelogenous leukemia Status: Acute Assessment and plan: We will support with 2 units red blood cell transfusion today. We are using viscous lidocaine as needed odynaphasia. No thrush is noted. Continue IV fluids with gentle hydration. Patient is diabetic and is on sliding scale. History of coronary artery disease with anticoagulation discontinued secondary to thrombocytopenia. Current Visit: No Oncology Subjective PN Interval history: Patient now entering his third month of AML diagnosis. We will begin his third cycle of chemotherapy today with Dacogen 40 mg IV for 5 days. He has demonstrated an improvement in his platelet levels and also his has required less frequent red blood cell transfusions. He remains neutropenic. He states he pulled his groin last night and now has difficulty with weightbearing and ambulation. He still has significant pain and tenderness with chewing of the bilateral lower gumline. He is tender to touch at the right lower gum and does have an area of prior dental procedure. If possible I would like him seen by dentist while inpatient. I am not sure how long he will need to stay with us. His abdomen is soft and nontender and he has appears to have normal urine and bowel function at this time Exam - Constitutional Vitals: Period Temp Pulse Resp BP Sys/Asencio Pulse Ox Last 24 Hr 98.5 F-99.8 F 88-104 18-20 117-163/48-79 97-99 Results - Labs CBC & BMP: 11/02/16 08:01 11/02/16 08:01
[2016-11-02] MEDS: DECITABINE IV SCH (11:33)
[2016-11-02] MEDS: SODIUM CHLORIDE 0.9% IV SCH (11:33)
[2016-11-02] MEDS: cefTRIAXone 1,000 MG in SODIUM CHLORIDE 0.9% 100 ML IV SCH (14:41)
[2016-11-02] MEDS: FLUCONAZOLE INJ 400 MG in PREMIX 1 EACH IV SCH (16:40)
[2016-11-02] MEDS: TEMAZEPAM 7.5 MG CAPSULE PO PRN (20:15)
[2016-11-03] MEDS: SODIUM CHLORIDE 0.45% 1,000 ML IV SCH ×2 (00:50→06:00)
[2016-11-03] MEDS: LOSARTAN 25 MG TABLET PO SCH (08:27)
[2016-11-03] MEDS: INSULIN REGULAR 100 UNIT/ML SUBCUT SCH ×3 (08:27→22:17)
[2016-11-03] MEDS: INSULIN LISPRO 100 UNIT/ML SUBCUT SCH ×2 (08:28→22:17)
--- NOTE | 2016-11-03 08:33 | Oncology Progress Note ---
Assessment and Plan (1) Acute myelogenous leukemia Status: Acute Assessment and plan: We will support with 2 units red blood cell transfusion today. We are using viscous lidocaine as needed odynaphasia. No thrush is noted. Continue IV fluids with gentle hydration. Patient is diabetic and is on sliding scale. History of coronary artery disease with anticoagulation discontinued secondary to thrombocytopenia. Current Visit: No Oncology Subjective PN Interval history: Elderly patient with AML 3 months into diagnosis. Stable this morning without fever. His oral intake appears to be slightly improved. We were unable to obtain a dental consultation. He has 4 additional days of chemotherapy. He should be able to be discharged by the end of the week. I am having physical therapy see him and assess him today for his muscle pull of the lower extremity. He declines swing bed placement. Exam - Constitutional Vitals: Period Temp Pulse Resp BP Sys/Asencio Pulse Ox Last 24 Hr 97.6 F-99.2 F 83-98 18-20 138-150/66-83 96-99 Results - Labs CBC & BMP: 11/02/16 08:01 11/02/16 08:01
[2016-11-03] MEDS: DECITABINE IV SCH (10:47)
[2016-11-03] MEDS: SODIUM CHLORIDE 0.9% IV SCH (10:47)
--- NOTE | 2016-11-03 15:10 | Physician Query Form ---
CLICK EDIT DOCUMENT TO SELECT QUERY ANSWER --> OK --> SIGN Christiane Delgado RN [employer] W) [phone] (f) [phone] [email or web address]: Make your selection(s) from the choices in EACH section by typing an "x" and enter comments in the comment section. Please use your independent medical judgment in providing your response. This request does not imply that any particular answer is desired or expected. CLINICAL INDICATORS: (Providers should not edit this section) Based on documentation of "leukopenia and thrombocytopenia". WBC=0.4, RBC=2.85, PLT=46. Based on the above, could you clarify the appropriate diagnosis, if significant , that supports the above abnormalities and additional evaluation, monitoring, and/or treatment rendered: ( ) Pt. has pancytopenia ( ) Pt. does not have pancytopenia (x ) Other, please specify: Acute leukemia ( ) Clinically unable to determine COMMENTS: PLEASE ALSO DOCUMENT RESPONSE IN PROGRESS NOTES AND/OR DISCHARGE SUMMARY Use of terms such as suspected, likely, or probable (associated with a specific diagnosis that is being evaluated, monitored, or treated as if it exists) are acceptable and can be restated in the discharge summary if not ruled out. MTDD
[2016-11-03] MEDS: cefTRIAXone 1,000 MG in SODIUM CHLORIDE 0.9% 100 ML IV SCH (15:41)
--- NOTE | 2016-11-03 17:18 | Event Note ---
Patient seen and examined at bedside with tender and enlarged left proximal leg. His history is notable for multiple thrombotic events over the past decade. He does have an indwelling IVC filter and was anticoagulated with Eliquis prior to the onset of his acute leukemia and thrombocytopenia. At this time his presentation is consistent with left lower extremity DVT. There is no cellulitis. Stat ultrasound has been ordered with plans to initiate Lovenox. His platelets are only borderline for anticoagulation of approximately 50,000. He is also anemic with most recent hematocrit of 26. Given the amount of pain and distention that is present I think we should proceed with anticoagulation initiation although this will be more risky for the reasons as stated above.
[2016-11-03] MEDS: ENOXAPARIN 80 MG/0.8 ML SYRINGE SUBCUT SCH (18:13)
[2016-11-03] MEDS: FLUCONAZOLE INJ 400 MG in PREMIX 1 EACH IV SCH (18:13)
[2016-11-03] MEDS: TEMAZEPAM 7.5 MG CAPSULE PO PRN (20:57)
--- NOTE | 2016-11-03 21:23 | Ultrasound Report ---
US venous doppler LE LT Indication: Left leg swelling. Left lower extremity DVT ultrasound: Spann scale, color Doppler and pulse Doppler waveform interrogation of the left leg performed. Noncompressible thrombus is present throughout the left common femoral, superficial and popliteal vein. There is a very limited amount of flow in the left popliteal vein identified. The central most extent of thrombus is not seen. Right common femoral vein is widely patent. Impression: Left lower extremity DVT as described. Comment: Findings discussed between public relations analyst and nurse Fabi Parker at 1852 hours. PROCEDURE INTERPRETED AT [facility] DEPARTMENT OF RADIOLOGY Final Report Signed by: Fan Tirado M.D.
[2016-11-04 05:16] LABS: Hematocrit 25.7 VOL% (42.0-52.0); Hemoglobin 8.9 GM/DL (14.0-18.0); Lymphocytes # 0.3 10*3/uL (1.4-4.0); Lymphocytes % 88.9 % (21.2-54.2); Mean Corpuscular HGB Conc 34.6 GM/DL (32-36); Mean Corpuscular Hemoglobin 29 PG (27-34); Mean Corpuscular Volume 83.4 FL (87-102); Mean Platelet Volume 10.8 FL (9.6-12.0); Monocytes % 5.6 % (1.7-12.7); Neutrophils % 5.5 % (38.7-73.9); Red Blood Count 3.08 MC/CUMM (3.8-5.5); Red Cell Distribution Width 13.5 % (9.3-17.3)
[2016-11-04 05:20] LABS: Platelet Count 62 T/CUMM (130-400)
[2016-11-04 05:21] LABS: White Blood Count 0.4 T/CUMM (4-12)
[2016-11-04 05:40] LABS: Calcium 8.2 MG/DL (8.5-10.1); Lymphocytes 100 % (20-55); Osmolality,Calculated 279.8 MOS/KG (273-304); Potassium 4.1 MMOL/L (3.5-5.1); Total Cells Counted 100
[2016-11-04 05:41] LABS: Hypochromasia 1+; Microcytosis 1+; Ovalocytes Slight; Platelet Estimate Decreased
[2016-11-04] MEDS: ENOXAPARIN 80 MG/0.8 ML SYRINGE SUBCUT SCH ×2 (06:45→16:57)
[2016-11-04] MEDS: DECITABINE IV SCH (09:53)
[2016-11-04] MEDS: INSULIN REGULAR 100 UNIT/ML SUBCUT SCH ×2 (09:53→21:07)
[2016-11-04] MEDS: SODIUM CHLORIDE 0.9% IV SCH (09:53)
[2016-11-04] MEDS: LOSARTAN 25 MG TABLET PO SCH (09:54)
--- NOTE | 2016-11-04 10:06 | Oncology Progress Note ---
Assessment and Plan (1) Acute myelogenous leukemia Status: Acute Assessment and plan: We will support with 2 units red blood cell transfusion today. We are using viscous lidocaine as needed odynaphasia. No thrush is noted. Continue IV fluids with gentle hydration. Patient is diabetic and is on sliding scale. History of coronary artery disease with anticoagulation discontinued secondary to thrombocytopenia. Current Visit: No Oncology Subjective PN Interval history: Patient with AML. Events of the last 24 hours include left lower extremity acute extensive DVT. Patient is placed on Lovenox as of last evening currently at 80 mg every 12 hours. No bleeding has been reported overnight. Because of the thrombocytopenia I do not think he is a candidate for thrombolytics. I explained to him that this could take 1-2 weeks to see significant improvement in terms of pain and edema. He does not have distal cyanosis or tenderness at this time. Continuing course 3 chemotherapy as previously discussed. Oral intake is improving Exam - Constitutional Vitals: Period Temp Pulse Resp BP Sys/Asencio Pulse Ox Last 24 Hr 97.9 F-99.3 F 95-102 18-20 138-148/66-74 95-98 Results - Labs CBC & BMP: 11/04/16 04:39 11/04/16 04:39
[2016-11-04] MEDS: INSULIN LISPRO 100 UNIT/ML SUBCUT SCH ×2 (10:19→21:08)
[2016-11-04] MEDS ORDERED: HEPARIN LOCK FLUSH 500 UNIT/5 ML SYRINGE IV ONE (10:50)
[2016-11-04] MEDS: cefTRIAXone 1,000 MG in SODIUM CHLORIDE 0.9% 100 ML IV SCH (15:17)
[2016-11-04] MEDS: FLUCONAZOLE INJ 400 MG in PREMIX 1 EACH IV SCH (16:55)
[2016-11-04] MEDS: TEMAZEPAM 7.5 MG CAPSULE PO PRN (21:07)
[2016-11-05 07:56] LABS: Hematocrit 25.4 VOL% (42.0-52.0); Hemoglobin 8.8 GM/DL (14.0-18.0); Immature Granulocytes % 2.7 %; Immature Granulocytes Absolute 0.01 #; Lymphocytes # 0.3 10*3/uL (1.4-4.0); Lymphocytes % 86.5 % (21.2-54.2); Mean Corpuscular HGB Conc 34.6 GM/DL (32-36); Mean Corpuscular Hemoglobin 29 PG (27-34); Mean Corpuscular Volume 83.6 FL (87-102); Mean Platelet Volume 9.9 FL (9.6-12.0); Monocytes % 2.7 % (1.7-12.7); Neutrophils % 8.1 % (38.7-73.9); Red Blood Count 3.04 MC/CUMM (3.8-5.5); Red Cell Distribution Width 13.5 % (9.3-17.3)
[2016-11-05 07:58] LABS: Platelet Count 71 T/CUMM (130-400); White Blood Count 0.4 T/CUMM (4-12)
[2016-11-05 08:16] LABS: Lymphocytes 100 % (20-55); Platelet Estimate Decreased; Total Cells Counted 100
[2016-11-05 08:17] LABS: Hypochromasia Slight; Microcytosis 1+; Ovalocytes Slight
--- NOTE | 2016-11-05 08:24 | Oncology Progress Note ---
Assessment and Plan (1) Acute myelogenous leukemia Status: Acute Assessment and plan: We will support with 2 units red blood cell transfusion today. We are using viscous lidocaine as needed odynaphasia. No thrush is noted. Continue IV fluids with gentle hydration. Patient is diabetic and is on sliding scale. History of coronary artery disease with anticoagulation discontinued secondary to thrombocytopenia. Current Visit: No Oncology Subjective PN Interval history: No acute changes overnight. Further platelet increase is noted with response to chemotherapy. Discussed and will pursue AngioJet procedure for extensive left lower extremity DVT. We will hold Lovenox and make n.p.o. Consult has been placed interventional radiology. Otherwise the patient appears in no acute distress. He does have an IVC filter placed many years ago. Exam - Constitutional Vitals: Period Temp Pulse Resp BP Sys/Asencio Pulse Ox Last 24 Hr 97.9 F-98.6 F 72-98 16-20 127-158/65-88 95-99 Results - Labs CBC & BMP: 11/05/16 07:43 11/04/16 04:39
[2016-11-05 08:28] LABS: Calcium 8.4 MG/DL (8.5-10.1); Osmolality,Calculated 282.7 MOS/KG (273-304); Potassium 4.7 MMOL/L (3.5-5.1)
[2016-11-05] MEDS ORDERED: ENOXAPARIN 80 MG/0.8 ML SYRINGE SUBCUT SCH (09:00)
[2016-11-05] MEDS: LOSARTAN 25 MG TABLET PO SCH (10:18)
--- NOTE | 2016-11-05 11:31 | Inventional Radiology Consult ---
Assessment and Plan - Time spent with patient Time spent with patient: Less than 30 minutes (1) Deep venous thrombosis of femoral vein Problem details: very tender, underlying thrombophelibitis is not excluded but favored unlikely Status: Acute Assessment and plan: I discussed Catheter based thrombolysis of the left femoropopliteal deep venous thrombosis. It is unknown if there is additional ileofemoral thrombosis , which may be present. Risks discussed included bleeding, infection, injury to vessels and thrombus recurrence. All questions were answered to patient's satisfaction. Patient will be kept on Lovenox and likely transient to oral anticoagulant following discharge. ASA level III Current Visit: Yes Qualifiers: Chronicity: acute Laterality: left Qualified Code(s): I82.412 - Acute embolism and thrombosis of left femoral vein IR Consult - Data of Consult Patient: new to practice Consult date: 11/05/16 Requesting Physician: Fan Sanz - Consult Narrative Reason for consult: extensive left leg DVT with pain History of present illness: Jerry is a 76 year old M Seen by oncology for acute myelogenous leukemia. Patient has progressed through approximately 3 months of treatment at this point. History of multiple episodes of deep venous thrombosis with chronic treatment" which was initially discontinued when patient's pancytopenia/ thrombocytopenia worsened. Now patient presents with left lower extremity swelling tenderness and pain and inability to ambulate with new deep venous thrombosis. Patient has an IVC filter in place. No shortness of breath. No chest pain. Patient has no nausea vomiting or diarrhea. - Home Medications and Allergies Home Medications: Home Medications Medication Instructions Recorded Confirmed Type Apixaban [Eliquis] 5 mg PO BID 10/11/16 10/29/16 History Atorvastatin [Lipitor] 40 mg PO DAILY 10/11/16 10/29/16 History Ezetimibe [Zetia] 10 mg PO DAILY 10/11/16 10/29/16 History Glimepiride [Amaryl] 4 mg PO BID W/MEALS 10/11/16 10/29/16 History Insulin Aspart [NovoLOG FlexPen] 10 unit SUBCUT BID 10/11/16 10/29/16 History Losartan [Cozaar] 50 mg PO DAILY 10/11/16 10/29/16 History Amoxicillin/Clav Tab [Augmentin 875 mg PO BID 10/29/16 10/29/16 History Tab] Ciprofloxacin Tab [Cipro Tab] 500 mg PO BID 10/29/16 10/29/16 History metroNIDAZOLE TAB [Flagyl Cap/Tab] 500 mg PO BID 10/29/16 10/29/16 History Allergies/Adverse Reactions: Allergies Allergy/AdvReac Type Severity Reaction Status Date / Time No Known Allergies Allergy Unverified 09/07/16 09:28 12 point system: reviewed and no additional remarkable complaints except as stated Medical,Surgical,& Family Hx - Medical History Cardio: History of: Hypertension Neurology: No history of: Seizures HEENT: History of: HEENT Problems (sinuses) Endocrine: History of: Diabetes Mellitus (IDDM), Dyslipidemia Hematology: History of: Hematologic Cancer (leukemia) - Surgical History Cardiac Surgeries: Patient Denies: Cardiac Catheterization HEENT Surgeries: Patient denies: Tonsilectomy & Adenoidectomy Abdominal Surgeries: Surgical HX of: Appendectomy (2010), Colonoscopy - Family History Family History: Reports;: Family Diabetes - Social History Smoking Status: Never smoker Exam - Labs CBC & BMP: 11/05/16 07:43 11/05/16 07:43 Lab Results: I have reviewed the past 24 hour labs Image Studies: LLE u/s showing extensive femoropopliteal DVT - Constitutional Vitals: Period Temp Pulse Resp BP Sys/Asencio Pulse Ox Last 24 Hr 97.9 F-98.6 F 72-98 16-20 127-158/65-88 95-99 General appearance: over weight - Eye Eye exam: Present: EOMI - Respiratory Respiratory exam: Present: clear to auscultation bilaterally - Cardiovascular Cardiovascular exam: Present: regular rate and rhythm - GI/Abdominal GI/Abdominal exam: Present: normal bowel sounds - Expanded Left Lower Upper Leg exam: Present: swelling, tenderness (near inguinal canal). Absent: ecchymosis, erythema, full ROM (limited motion due to pain) Knee exam: Present: normal inspection Lower leg exam: Present: swelling (2+ edema) Foot/Toe exam: Present: normal inspection Neuro vascular tendon exam: Absent: pulse deficit, sensory deficit - Neurological Exam Neurological exam: Present: alert, oriented X3 - Psychiatric Psychiatric exam: Present: normal affect, normal mood - Skin Skin exam: Present: normal color, dry
[2016-11-05] MEDS ORDERED: DIAZEPAM 5 MG TABLET PO ONE (11:40)
[2016-11-05] MEDS: SODIUM CHLORIDE 0.9% IV SCH (12:36)
[2016-11-05] MEDS: DECITABINE IV SCH (12:36)
[2016-11-05] MEDS: INSULIN REGULAR 100 UNIT/ML SUBCUT SCH ×2 (12:53→20:34)
[2016-11-05] MEDS: INSULIN LISPRO 100 UNIT/ML SUBCUT SCH ×2 (12:53→20:36)
[2016-11-05] MEDS ORDERED: HEPARIN/NACL 0.9% 2 UNITS/ML 2,000 ML IV ONE (14:13)
[2016-11-05] MEDS ORDERED: MIDAZOLAM 2 MG/2 ML VIAL ONE (15:00)
[2016-11-05] MEDS ORDERED: fentaNYL 100 MCG/2 ML VIAL ONE (15:00)
[2016-11-05] MEDS ORDERED: ALTEPLASE 2 MG VIAL ONE (15:21)
[2016-11-05] MEDS ORDERED: MIDAZOLAM 2 MG/2 ML VIAL IV ONE (16:07)
[2016-11-05] MEDS ORDERED: fentaNYL 100 MCG/2 ML VIAL IV ONE (16:07)
--- NOTE | 2016-11-05 16:15 | Post Interventional Procedure ---
Pre-op diagnosis: right leg DVT Post-op diagnosis: same Procedure: attempted popliteal access thrombolysis of femoropopliteal thrombosis Contrast: 20 mL Omni 350 Flouroscopy: 12.4 min Radiologist: Royce Back Medications: 1 mG Versend 50 mcg Fentanyl Total Sedation Time: 60 min Specimens: none sent Estimated blood loss: none Complications: none Condition: stable Description/Findings: There was visualized thombus in the popliteal vein. 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 There were multiple collateral veins that did drain into the femoral vein but none were suitable for thrombolysis attempts. Therefore, the procedure was terminated. At this point, it is favored that acute thrombosis of the residual femoropopliteal veins has occured on top of chronic occlusion from multiple prior episode of DVTs. This will be best treated with anticoagulation. Assessment and Plan - Time spent with patient Time spent with patient: Greater than 30 minutes (1) Deep venous thrombosis of femoral vein Problem details: very tender, underlying thrombophelibitis is not excluded but favored unlikely Status: Acute Assessment and plan: I discussed Catheter based thrombolysis of the left femoropopliteal deep venous thrombosis. It is unknown if there is additional ileofemoral thrombosis , which may be present. Risks discussed included bleeding, infection, injury to vessels and thrombus recurrence. All questions were answered to patient's satisfaction. Patient will be kept on Lovenox and likely transient to oral anticoagulant following discharge. ASA level III Current Visit: Yes Qualifiers: Chronicity: chronic Laterality: left Qualified Code(s): I82.512 - Chronic embolism and thrombosis of left femoral vein
--- NOTE | 2016-11-05 17:10 | Interventional Radiology Rpt ---
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 Physician[s]: Dr. Back Total number of images for the procedure: 303 Procedure: The patient was advised of the benefits, risks, and alternatives of the procedure and informed consent was obtained. A time out was performed with verification of the patient's name, MRN, site of procedure, and type of procedure to be performed. The patient was positioned in the supine position on the angiographic table. The site was prepped and draped in the usual sterile fashion. Moderate conscious sedation was administered throughout the procedure for 60 minutes, during which the operating physician monitored the patient. Please see flow sheet in the [facility] system for details. 2% lidocaine was used for local anesthesia. Using ultrasound guidance, the left popliteal vein was accessed using a microintroducer kit. Ultrasound capture of vascular access was retained for the patient's permanent record. Unfortunately, the microwire could not be advanced significantly into the vasculature. The inner dilator of the Micro-6 sheath was advanced over the wire. Multiple venograms were obtained and demonstrate small collateral vessels with limited visualization of any significant opacification or proximal branches to the [place] popliteal vein. There is some proximal visualization of the femoral veins although multiple small collateral vessels are primarily visualized. A second more proximal popliteal access into the popliteal vein was obtained. Again, the wire did not track significantly and venogram demonstrates multiple small collateral vessels. Given the findings, no intervention could be performed. The patient tolerated the procedure well and was returned to the inpatient room in stable condition. EBL: < 5 mL. Complications: None. Total fluoroscopy time: 12.4 minutes. Conclusion: 1. Venograms of the popliteal veins demonstrate chronic occlusion of the distal femoral and popliteal system with multiple small collaterals. Findings are most compatible with chronic venous occlusions. 2. No significant vessels could be catheterized for thrombolysis or thrombectomy. 3. Recommendation is for anticoagulation. PROCEDURE INTERPRETED AT [facility] DEPARTMENT OF RADIOLOGY Final Report Signed by: Royce Back
[2016-11-05] MEDS: cefTRIAXone 1,000 MG in SODIUM CHLORIDE 0.9% 100 ML IV SCH (17:21)
[2016-11-05] MEDS: ENOXAPARIN 100 MG/ML SYRINGE SUBCUT SCH (18:23)
[2016-11-05] MEDS: FLUCONAZOLE INJ 400 MG in PREMIX 1 EACH IV SCH (18:46)
[2016-11-06 05:32] LABS: Hemoglobin 8.4 GM/DL (14.0-18.0); Immature Granulocytes % 2.7 %; Immature Granulocytes Absolute 0.01 #; Lymphocytes # 0.3 10*3/uL (1.4-4.0); Lymphocytes % 78.4 % (21.2-54.2); Mean Corpuscular Hemoglobin 29 PG (27-34); Mean Platelet Volume 10.6 FL (9.6-12.0); Monocytes % 5.4 % (1.7-12.7); Neutrophils # 0.1 10*3/uL (1.4-7.4); Neutrophils % 13.5 % (38.7-73.9); Platelet Count 71 T/CUMM (130-400); Red Blood Count 2.89 MC/CUMM (3.8-5.5); Red Cell Distribution Width 13.5 % (9.3-17.3)
[2016-11-06 05:36] LABS: White Blood Count 0.4 T/CUMM (4-12)
[2016-11-06 06:03] LABS: Calcium 8.3 MG/DL (8.5-10.1); Magnesium 2.1 MG/DL (1.8-2.4); Potassium 4.6 MMOL/L (3.5-5.1)
[2016-11-06 06:14] LABS: Lymphocytes 80 % (20-55); Myelocytes 10 %; Segmented Neutrophils 10 % (50-85); Total Cells Counted 100
[2016-11-06 06:15] LABS: Anisocytosis 1+; Platelet Estimate Decreased
[2016-11-06] MEDS: ENOXAPARIN 100 MG/ML SYRINGE SUBCUT SCH ×2 (06:18→19:00)
[2016-11-06] MEDS ORDERED: TUBERCULIN SKIN TEST 0.1 ML SYRINGE INTRADERM ONE (08:35)
[2016-11-06] MEDS: LOSARTAN 25 MG TABLET PO SCH (08:41)
--- NOTE | 2016-11-06 09:25 | Oncology Progress Note ---
Assessment and Plan (1) Acute myelogenous leukemia Status: Acute Assessment and plan: We will support with 2 units red blood cell transfusion today. We are using viscous lidocaine as needed odynaphasia. No thrush is noted. Continue IV fluids with gentle hydration. Patient is diabetic and is on sliding scale. History of coronary artery disease with anticoagulation discontinued secondary to thrombocytopenia. Current Visit: No Oncology Subjective PN Interval history: Patient remained stable overnight. Attempts at mechanical thrombectomy minimally successful yesterday given what appears to be chronic changes of the venous architecture. We will attempt to mobilize the patient today with aggressive physical therapy. We will arrange for red blood cell transfusion. He should complete his chemotherapy today. We are asking case management to assist with swing bed placement. Exam - Constitutional Vitals: Period Temp Pulse Resp BP Sys/Asencio Pulse Ox Last 24 Hr 97.6 F-98.0 F 95-125 16-20 104-178/65-90 94-99 Results - Labs CBC & BMP: 11/06/16 05:13 11/06/16 05:13
--- NOTE | 2016-11-06 09:43 | Case Mgmt Physician Query Form ---
TB Signs and Symptoms Screening ([place]) INSTRUCTIONS: To be completed annually on residents/staff with a significant Tuberculin Skin Test (TST) upon admission/hire or a prior significant TST. To be completed on all staff at hire. Please respond to each listed symptom with an (X) in either the "YES" or "NO" box. Do you currently have any of the following symptoms: YES NO ( ) ( x) A cough If yes, is it: ( ) Productive ( ) Non- productive ( ) (x ) Hemoptysis (spitting up blood) ( ) ( x) Chest pains ( ) ( x) Weight Loss ( ) ( x) Fever ( ) (x ) Night Sweats ( ) (x ) Weakness ( ) (x ) Loss of Appetite ( ) ( x) Difficulty Breathing If you answered YES" to any of the above questions, how long have symptoms been present? Comments: LAURA
[2016-11-06] MEDS: DECITABINE IV SCH (12:22)
[2016-11-06] MEDS: SODIUM CHLORIDE 0.9% IV SCH (12:22)
[2016-11-06] MEDS: INSULIN REGULAR 100 UNIT/ML SUBCUT SCH ×2 (14:09→21:04)
[2016-11-06] MEDS: INSULIN LISPRO 100 UNIT/ML SUBCUT SCH ×2 (15:02→21:05)
[2016-11-06] MEDS: cefTRIAXone 1,000 MG in SODIUM CHLORIDE 0.9% 100 ML IV SCH (16:13)
[2016-11-06] MEDS: FLUCONAZOLE INJ 400 MG in PREMIX 1 EACH IV SCH (16:50)
[2016-11-07 04:08] LABS: Eosinophils % 2.4 % (0.00-10.9); Hematocrit 28.7 VOL% (42.0-52.0); Hemoglobin 10.3 GM/DL (14.0-18.0); Lymphocytes # 0.3 10*3/uL (1.4-4.0); Lymphocytes % 75.6 % (21.2-54.2); Mean Corpuscular HGB Conc 35.9 GM/DL (32-36); Mean Corpuscular Hemoglobin 29 PG (27-34); Mean Corpuscular Volume 81.8 FL (87-102); Mean Platelet Volume 10.8 FL (9.6-12.0); Monocytes % 7.3 % (1.7-12.7); Neutrophils # 0.1 10*3/uL (1.4-7.4); Neutrophils % 14.7 % (38.7-73.9); Platelet Count 62 T/CUMM (130-400); Red Blood Count 3.51 MC/CUMM (3.8-5.5); Red Cell Distribution Width 13.7 % (9.3-17.3)
[2016-11-07 04:12] LABS: White Blood Count 0.4 T/CUMM (4-12)
[2016-11-07 04:13] LABS: Magnesium 2.1 MG/DL (1.8-2.4); Osmolality,Calculated 281.8 MOS/KG (273-304); Potassium 4.2 MMOL/L (3.5-5.1)
[2016-11-07 05:04] LABS: Lymphocytes 90 % (20-55); Platelet Estimate Decreased; Segmented Neutrophils 10 % (50-85); Total Cells Counted 100
[2016-11-07] MEDS: ENOXAPARIN 100 MG/ML SYRINGE SUBCUT SCH ×2 (05:56→18:09)
[2016-11-07] MEDS: LOSARTAN 25 MG TABLET PO SCH (08:24)
--- NOTE | 2016-11-07 10:21 | Oncology Progress Note ---
Assessment and Plan (1) Acute myelogenous leukemia Status: Acute Assessment and plan: We will support with 2 units red blood cell transfusion today. We are using viscous lidocaine as needed odynaphasia. No thrush is noted. Continue IV fluids with gentle hydration. Patient is diabetic and is on sliding scale. History of coronary artery disease with anticoagulation discontinued secondary to thrombocytopenia. Current Visit: No Oncology Subjective PN Interval history: AML and left lower extremity DVT. The patient declined physical therapy yesterday. He was strongly encouraged to participate. I have reiterated that he will likely have several weeks of edema and tenderness given the prior clotting events in the extensiveness of the current clot. His daughter from [place] was present today and we discussed the somewhat unsuccessful attempt at thrombectomy. Planning to pursue rehab placement next week. His hematologic parameters are stable at this time. He did receive red blood cell transfusion yesterday. He is neutropenic but not febrile. Exam - Constitutional Vitals: Period Temp Pulse Resp BP Sys/Asencio Pulse Ox Last 24 Hr 97.3 F-98.2 F 80-94 16-20 128-177/63-83 93-97 Results - Labs CBC & BMP: 11/07/16 02:36 11/07/16 02:36
[2016-11-07] MEDS: INSULIN REGULAR 100 UNIT/ML SUBCUT SCH ×2 (13:54→21:53)
[2016-11-07] MEDS: INSULIN LISPRO 100 UNIT/ML SUBCUT SCH ×2 (14:09→21:52)
[2016-11-07] MEDS: cefTRIAXone 1,000 MG in SODIUM CHLORIDE 0.9% 100 ML IV SCH (15:43)
[2016-11-07] MEDS: FLUCONAZOLE INJ 400 MG in PREMIX 1 EACH IV SCH (16:17)
[2016-11-08] MEDS: ENOXAPARIN 100 MG/ML SYRINGE SUBCUT SCH ×2 (06:06→18:02)
[2016-11-08 08:05] LABS: Hematocrit 28.6 VOL% (42.0-52.0); Hemoglobin 10.1 GM/DL (14.0-18.0); Immature Granulocytes % 2.2 %; Immature Granulocytes Absolute 0.01 #; Lymphocytes # 0.3 10*3/uL (1.4-4.0); Lymphocytes % 75.6 % (21.2-54.2); Mean Corpuscular HGB Conc 35.3 GM/DL (32-36); Mean Corpuscular Hemoglobin 29 PG (27-34); Mean Corpuscular Volume 82.7 FL (87-102); Mean Platelet Volume 10.6 FL (9.6-12.0); Monocytes % 4.4 % (1.7-12.7); Neutrophils # 0.1 10*3/uL (1.4-7.4); Neutrophils % 17.8 % (38.7-73.9); Red Blood Count 3.46 MC/CUMM (3.8-5.5); Red Cell Distribution Width 13.6 % (9.3-17.3)
[2016-11-08 08:07] LABS: Platelet Count 60 T/CUMM (130-400); White Blood Count 0.5 T/CUMM (4-12)
[2016-11-08 08:23] LABS: Band Neutrophils 20 % (0-10); Hypochromasia 1+; Lymphocytes 60 % (20-55); Ovalocytes Slight; Platelet Estimate Decreased; Segmented Neutrophils 20 % (50-85); Total Cells Counted 100
[2016-11-08 08:24] LABS: Microcytosis Slight
[2016-11-08] MEDS: LOSARTAN 25 MG TABLET PO SCH (08:49)
[2016-11-08 09:14] LABS: Calcium 8.2 MG/DL (8.5-10.1); Osmolality,Calculated 284.7 MOS/KG (273-304); Potassium 4.4 MMOL/L (3.5-5.1)
--- NOTE | 2016-11-08 11:03 | Oncology Progress Note ---
Assessment and Plan (1) Acute myelogenous leukemia Status: Acute Assessment and plan: We will support with 2 units red blood cell transfusion today. We are using viscous lidocaine as needed odynaphasia. No thrush is noted. Continue IV fluids with gentle hydration. Patient is diabetic and is on sliding scale. History of coronary artery disease with anticoagulation discontinued secondary to thrombocytopenia. Current Visit: No Oncology Subjective PN Interval history: AML and left lower extremity DVT. The patient is up in the chair today the first and I have seen in at least a week. We are continuing Lovenox 100 mg twice daily. He has no fever. Platelet count is near 60,000. He appears nontoxic at the present time. Continuing with physical therapy while hospitalized with plans to pursue swing bed tomorrow. Exam - Constitutional Vitals: Period Temp Pulse Resp BP Sys/Asencio Pulse Ox Last 24 Hr 96.9 F-97.8 F 81-93 17-20 136-180/66-80 95-99 Results - Labs CBC & BMP: 11/08/16 07:54 11/08/16 07:54
[2016-11-08] MEDS: INSULIN LISPRO 100 UNIT/ML SUBCUT SCH ×2 (13:47→20:36)
[2016-11-08] MEDS: INSULIN REGULAR 100 UNIT/ML SUBCUT SCH ×2 (13:48→20:35)
[2016-11-08] MEDS: cefTRIAXone 1,000 MG in SODIUM CHLORIDE 0.9% 100 ML IV SCH (16:14)
[2016-11-08] MEDS: FLUCONAZOLE INJ 400 MG in PREMIX 1 EACH IV SCH (17:14)
[2016-11-09 04:24] LABS: Hematocrit 28.2 VOL% (42.0-52.0); Hemoglobin 9.7 GM/DL (14.0-18.0); Lymphocytes # 0.3 10*3/uL (1.4-4.0); Lymphocytes % 69.4 % (21.2-54.2); Mean Corpuscular HGB Conc 34.4 GM/DL (32-36); Mean Corpuscular Hemoglobin 29 PG (27-34); Mean Corpuscular Volume 83.7 FL (87-102); Mean Platelet Volume 10.2 FL (9.6-12.0); Monocytes % 8.2 % (1.7-12.7); Neutrophils # 0.1 10*3/uL (1.4-7.4); Neutrophils % 20.4 % (38.7-73.9); Platelet Count 55 T/CUMM (130-400); Red Blood Count 3.37 MC/CUMM (3.8-5.5); Red Cell Distribution Width 13.4 % (9.3-17.3)
[2016-11-09 04:32] LABS: White Blood Count 0.5 T/CUMM (4-12)
[2016-11-09 04:48] LABS: Lymphocytes 53 % (20-55); Platelet Estimate Decreased; Segmented Neutrophils 40 % (50-85); Total Cells Counted 100
[2016-11-09 05:06] LABS: Calcium 8.3 MG/DL (8.5-10.1); Osmolality,Calculated 287.4 MOS/KG (273-304); Potassium 4.8 MMOL/L (3.5-5.1)
[2016-11-09] MEDS: ENOXAPARIN 100 MG/ML SYRINGE SUBCUT SCH (06:26)
--- NOTE | 2016-11-09 08:32 | Discharge Summary ---
Hospital Course - Hospital Course Hospital Course: This patient was admitted with decreased p.o. intake and acute myelogenous leukemia. He had a superficial ulceration at the right lower gumline which made eating difficult. He has a history of multiple thromboses in the past as well as diabetes. During this hospitalization he developed a large left leg area of edema involving the proximal left thigh. This was confirmed as a venous thrombosis with ultrasound. At that time the patient's platelets were around 70,000. They are currently around 55,000. He was taken off of Eliquis 3 months ago during his acute leukemia diagnosis. He did receive his third cycle of Dacogen while hospitalized here. He has been seen by physical therapy. He was seen by interventional radiology who attempted mechanical thrombectomy but this was minimally successful most likely due to the patient's prior clotting history causing venous distortion. At this time he is walking with physical therapy. He is on Lovenox 100 mg subcu every 12 hours without evidence of bleeding. His hematocrit is holding stable. His white count has been low for several months now. Not currently febrile. He has required a red blood cell transfusion approximately every 2 weeks. Plans are for discharge to swing bed with bed available with twice weekly CBC monitoring. His next [facility] follow-up should be 3 weeks from today Diagnosis - Discharge Diagnosis (1) Acute myelogenous leukemia Status: Acute Discharge Plan - Discharge Medications No Action Insulin Aspart [NovoLOG FlexPen] 10 unit SUBCUT BID Ezetimibe [Zetia] 10 mg PO DAILY Atorvastatin [Lipitor] 40 mg PO DAILY metroNIDAZOLE TAB [Flagyl Cap/Tab] 500 mg PO BID Apixaban [Eliquis] 5 mg PO BID Losartan [Cozaar] 50 mg PO DAILY Glimepiride [Amaryl] 4 mg PO BID W/MEALS Ciprofloxacin Tab [Cipro Tab] 500 mg PO BID Amoxicillin/Clav Tab [Augmentin Tab] 875 mg PO BID - Follow Up or Referral - Forms/Instructions Exam - Constitutional Vitals: Period Temp Pulse Resp BP Sys/Asencio Pulse Ox Last 24 Hr 97 F-98.0 F 80-90 16-20 146-172/70-85 10-100 Discharge Results Procedures and tests throughout hospitalization: Pending Orders 11/10/16 04:00 BMP w/ Mg [Basic Metabolic Panel w/Mg] IN AM CBC [Comp Blood Count Auto Diff] IN AM 11/11/16 04:00 BMP w/ Mg [Basic Metabolic Panel w/Mg] IN AM CBC [Comp Blood Count Auto Diff] IN AM Labs on day of discharge: Labs from last 24 hours 11/09/16 11/09/16 11/08/16 03:50 03:50 19:57 WBC 0.5 L* RBC 3.37 L Hgb 9.7 L Hct 28.2 L MCV 83.7 L MCH 29 MCHC 34.4 RDW 13.4 Plt Count 55 L MPV 10.2 Neut % (Auto) 20.4 L Lymph % (Auto) 69.4 H [place] % (Auto) 8.2 Eos % (Auto) 0.0 Baso % (Auto) 2.0 H Neut # (Auto) 0.1 L Lymph # (Auto) 0.3 L [place] # (Auto) 0.0 L Eos # (Auto) 0.0 Baso # (Auto) 0.0 Total Counted 100 Immature Gran % 0.0 Nucleated RBC % 0.0 Immature Gran # 0.00 Segmented Neutrophils 40 L Lymphocytes 53 Monocytes 7 Nucleated RBCs # 0.00 Platelet Estimate Decreased Pappenheimer Bodies [place] Sodium 140 Potassium 4.8 Chloride 104 Carbon Dioxide 29 Anion Gap 11.8 BUN 26 H Creatinine 1.20 GFR Calculation 74 BUN/Creatinine Ratio 21.00 H Glucose 178 H POC Glucose 359 H Calculated Osmolality 287.4 Calcium 8.3 L Magnesium 2.0 11/08/16 11/08/16 13:13 07:54 WBC RBC Hgb Hct MCV MCH MCHC RDW Plt Count MPV Neut % (Auto) Lymph % (Auto) [place] % (Auto) Eos % (Auto) Baso % (Auto) Neut # (Auto) Lymph # (Auto) [place] # (Auto) Eos # (Auto) Baso # (Auto) Total Counted Immature Gran % Nucleated RBC % Immature Gran # Segmented Neutrophils Lymphocytes Monocytes Nucleated RBCs # Platelet Estimate Pappenheimer Bodies Sodium 138 Potassium 4.4 Chloride 103 Carbon Dioxide 26 Anion Gap 13.4 BUN 28 H Creatinine 1.10 GFR Calculation 83 BUN/Creatinine Ratio 25.00 H Glucose 178 H POC Glucose 285 H Calculated Osmolality 284.7 Calcium 8.2 L Magnesium 2.0 DS: Provider Date of admission: 10/29/16 13:53 Primary care physician: Jesse Austin, Attending physician on admission: Fan Sanz MD Consults: 10/29/16 15:09 Consult to Dietitian [CONS] Routine Reason for Dietitian: Diet Instruction 11/03/16 08:07 PT [Consult to Physical Therapy] [CONS] Routine Reason for Physical Therapy: Evaluate and Treat 11/06/16 08:35 Consult to Case Mgmt/Social Srvs [CONS] Routine Reason for Case Mgmt/Social Srvs: Swingbed/SNF/Assisted Discharging clinician: Fan Sanz MD
[2016-11-09] MEDS: LOSARTAN 25 MG TABLET PO SCH (09:07)
[2016-11-09 11:41] VITALS: BP 147/88
== END 2016-11-09 13:35 | disposition swing bed (61) | DRG 841 ==
LOC: N.4E 13:53
PROVIDERS: ADMIT Specialist; ATTEND Specialist

== ENCOUNTER 2016-11-22 14:19 | Inpatient (IN) ==
[2016-11-22] MEDS ORDERED: SODIUM CHLORIDE 0.9% 1,000 ML IV STA (14:48)
[2016-11-22] MEDS ORDERED: PANTOPRAZOLE 40 MG VIAL IV STA (14:48)
[2016-11-22] MEDS ORDERED: METOCLOPRAMIDE 10 MG/2 ML VIAL IV STA (14:48)
[2016-11-22] MEDS ORDERED: ONDANSETRON 4 MG/2 ML VIAL IV STA (14:48)
[2016-11-22] MEDS ORDERED: metroNIDAZOLE INJ 500 MG in PREMIX 1 EACH IV STA (14:48)
--- NOTE | 2016-11-22 14:56 | Emergency Department Note ---
Arrival - Arrival Chief Complaint: Non-Specific Stated Complaint: abnormal labs ED Nursing Triage Note[facility] labs obtained on 11/17/16- WBC 0.6. +generalized abdominal pain. Recently diagnosed with C.Diff. Mode of Arrival: Stretcher Limitations: No Limitations Source: Patient, Family Time Seen by Provider: 11/22/16 14:47 - History of Present Illness HPI Narrative: This 76-year-old white male with a diagnosis of acute myelogenous leukemia diagnosed in September with his last chemotherapy treatment 2 weeks ago presents on transfer from swing bed with complaints of diarrhea and abdominal pain associated with an insidious decline over the last week with poor intake. The patient and family deny any chills or fever during the past week but just a general decline in well-being and without appetite. In the last 48 hours he has had subsequent development of severe diarrhea in association with a left lower quadrant discomfort without melena or bright red blood. C. difficile was cultured but the patient also has a history of diverticulitis as well as nonspecific recurrent nonspecific colitis. Further complicating his stay at [facility] was loss of use of his MediPort due to extravasation of blood around the MediPort causing a hematoma over the access site. To cap things off, the patient originally was transferred to [facility] bed on November 09 after hospitalization for DVT of the left lower extremity for which he is currently is on Eliquis every night. Despite all these problems the patient appears medically stable for the moment. Onset (ago): week(s) (Patient presents 1 week post onset of symptom) Allergies/Adverse Reactions: Allergies Allergy/AdvReac Type Severity Reaction Status Date / Time No Known Allergies Allergy Verified 11/22/16 14:33 Home Medications: Home Medications Medication Instructions Recorded Confirmed Type Apixaban [Eliquis] 5 mg PO QPM 10/11/16 11/22/16 History Atorvastatin [Lipitor] 40 mg PO DAILY 10/11/16 11/22/16 History Ezetimibe [Zetia] 10 mg PO DAILY 10/11/16 11/22/16 History Glimepiride [Amaryl] 4 mg PO BID W/MEALS 10/11/16 11/22/16 History Insulin Aspart [NovoLOG FlexPen] 10 unit SUBCUT BID 10/11/16 11/22/16 History Losartan [Cozaar] 50 mg PO DAILY 10/11/16 11/22/16 History Acetaminophen [Acetaminophen ER 650 mg PO Q4H PRN 11/22/16 11/22/16 History Tab] Hydrocodone/Acetaminophen 1 each PO Q6H PRN 11/22/16 11/22/16 History [Hydrocodon-Acetaminoph 7.5-325] Insulin Lispro [HumaLOG] 10 unit SUBCUT BID 11/22/16 11/22/16 History Lactulose 20 gm PO Q6H PRN 11/22/16 11/22/16 History Nystatin Cream [Mycostatin Cream] 1 applic TOP BID 11/22/16 11/22/16 History Pantoprazole Tab [Protonix Tab] 40 mg PO DAILY 11/22/16 11/22/16 History Review of System - Review of System 12 point system: reviewed and no additional remarkable complaints except as stated - Review of System Constitutional: Present: as per HPI Gastrointestinal: Present: as per HPI Medical,Surgical,& Family Hx - Medical History Cardio: History of: Hypertension Neurology: History of: Cerebrovascular Accident (dec 2015 ; no deficits.) No history of: Seizures HEENT: History of: HEENT Problems (sinuses) Endocrine: History of: Diabetes Mellitus (IDDM), Dyslipidemia Respiratory: History of: Obstructive Sleep Apnea (sleeps with cpap @ home) Musculoskeletal: History of: Back/Neck Problems (previous neck sx with rods placed.) Hematology: History of: Hematologic Cancer (leukemia. He has history of B-cell lymphoma diagnosed 6-7 years ago), Blood Disorders - Surgical History Cardiac Surgeries: Patient Denies: Cardiac Catheterization Thoracic Surgeries: Patient denies;: Lobectomy Neurologic Surgeries: Patient denies: Neurologic Surgery HEENT Surgeries: Patient denies: Tonsilectomy & Adenoidectomy Abdominal Surgeries: Surgical HX of: Appendectomy (2010), Colonoscopy Orthopedic Surgeries: Surgical HX of;: Total Knee Replacement (L&R tkr) - Family History Family History: Reports;: Family Cancer (mother-lung ca, aunt- leukemia, cousin- leukemia), Family Diabetes - Social History Smoking Status: Never smoker Frequency of Alcohol Use: None Type of Drug Use: None Exam Physical Examination: GENERAL: Chronically ill-appearing elderly white male in no acute distress. HEENT: Normocephalic. No trauma. Moist mucous membranes. EOMI. PERRLA. ENT NML NECK: Supple. No adenopathy. CARDIAC: Regular. No murmurs. Heart rate 105 CHEST: Clear to auscultation. No respiratory distress. O2 sat 98% ABDOMEN: Soft. Tender left lower quadrant with hypoactive bowel sounds. EXTREMITIES: No trauma. Normal ROM. No pedal edema. Evidence of dry ulcer medial aspect of the left lower extremity SKIN: No diaphoresis. No rash. NEURO: Alert. Oriented 3. Motor, sensory, vibratory intact. No focal deficits. Vital Signs: Vital Signs Temperature 98.2 F 11/22/16 15:30 Pulse Rate 126 H 11/22/16 18:20 Respiratory Rate 20 11/22/16 18:20 Blood Pressure 136/72 11/22/16 18:20 O2 Sat by Pulse Oximetry 97 11/22/16 18:20 Course - Reevaluation(s) Reevaluation #1: Discussed with daughters who do want a DNR but as I promised them he will be treated to the [facility]. - Consultations Consultation #1: Discussed with Dr. Berumen who felt it was not worth consideration of transferring him to [place] given his age and current state and advised DNR after surgery makes their observation. Consultation #2: Dr Mccrary consulted and did not feel the patient was a surgical candidate at this time. Consultation #3: Dr. Thomas will admit for Dr. Sanz Results - Labs CBC & BMP: 11/22/16 15:12 11/22/16 15:12 Labs: I have reviewed the lab and noted the expected abnormalities on CBC - Diagnostic Findings Procedure: CT Abdomen and Pelvis: image reviewed by me, report reviewed by me ( Very grave findings with interstitial at statuses in the distal colon could be bacterial, simple inflammatory, or malignancy) Disposition Clinical Impression: Acute myelogenous leukemia, C. difficile colitis, Interstitial abscesses of the colon Case discussed with: patient's family Condition: Critical Time of Disposition: 18:00
[2016-11-22 15:27] LABS: Hematocrit 26.7 VOL% (42.0-52.0); Hemoglobin 9.5 GM/DL (14.0-18.0); Lymphocytes # 0.2 10*3/uL (1.4-4.0); Lymphocytes % 88.5 % (21.2-54.2); Mean Corpuscular HGB Conc 35.6 GM/DL (32-36); Mean Corpuscular Hemoglobin 30 PG (27-34); Mean Corpuscular Volume 83.4 FL (87-102); Mean Platelet Volume 9.9 FL (9.6-12.0); Monocytes % 3.8 % (1.7-12.7); Neutrophils % 7.7 % (38.7-73.9); Platelet Count 136 T/CUMM (130-400); Red Cell Distribution Width 13.8 % (9.3-17.3)
[2016-11-22 15:35] LABS: White Blood Count 0.3 T/CUMM (4-12)
[2016-11-22 15:43] LABS: INR 1.3; PT Patient Result 14.4 SECS; Partial Thromboplastin Time 39.1 SECS (0-40)
[2016-11-22 15:44] LABS: Lactic Acid 1.6 MMOL/L (0.4-2.0)
[2016-11-22 15:57] LABS: Albumin 2.1 G/DL (3.4-5.0); Calcium 8.1 MG/DL (8.5-10.1); Total Protein 5.8 G/DL (6.4-8.3)
[2016-11-22 15:58] LABS: Osmolality,Calculated 270.4 MOS/KG (273-304); Potassium 3.8 MMOL/L (3.5-5.1)
[2016-11-22 16:54] LABS: Apearance,Urine CLOUDY (Clear); Bacteria,Urine Occasional /HPF (Few); Bilirubin,Urine Negative (Negative); Blood, Urine Moderate mg/dL (Negative); Glucose,Urine (UA) Negative (Negative); Ketones,Urine 5 mg/dL (Negative); Nitrite,Urine Negative (Negative); Protein,Urine 30 MG/DL; RBC,Urine <1 /HPF (0-4); Squamous Epithelial Cell,Urine Occasional /HPF (0-10); Urine Color Amber (Yellow); Urine Specific Gravity 1.016 (1.001-1.035)
[2016-11-22] MEDS ORDERED: METOCLOPRAMIDE 10 MG/2 ML VIAL ONE (17:14)
[2016-11-22] MEDS ORDERED: ONDANSETRON 4 MG/2 ML VIAL ONE (17:14)
[2016-11-22] MEDS ORDERED: PANTOPRAZOLE 40 MG VIAL IV ONE (17:14)
--- NOTE | 2016-11-22 17:26 | CT Report ---
CT of the abdomen and pelvis with intravenous contrast. No oral contrast was administered. 100 cc Omni 350. Indication: Left lower quadrant abdominal pain. C. Difficile patient axial images were obtained with sagittal and coronal reconstructions. Comparison: October 14, 2016. The heart is normal in size. There are linear areas of atelectasis present within the lung bases. There is no pericardial or pleural effusion. There is streak artifact present from the patient's arms being in the neutral position. There is also motion artifact. The liver is normal in size and density. No focal liver lesions are identified. The gallbladder is mildly distended, without other abnormality identified. There is no splenic enlargement. There is no adrenal enlargement. There is no pancreatic enlargement or focal pancreatic lesion. The pancreatic duct is not dilated. The intra and extrahepatic biliary ducts are not dilated. There is a cyst at the midpole of the left kidney medially measuring about 3 cm. No nephrolithiasis. No hydronephrosis. The ureters are normal in course and caliber. The urinary bladder presents a normal appearance. There is calcific plaque present within the aortic knob. Shotty lymph nodes are seen within the retroperitoneum. An IVC filter is in place. There is no free air noted within the peritoneal cavity. The gastric contour is normal. The loops of small intestine are normal in caliber proximally. Distally, there is mild dilatation of loops of small intestine without wall thickening seen. The terminal ileum presents a normal appearance. The appendix has been removed. There is no evidence of bowel obstruction. The sigmoid colon is redundant. In the left lower quadrant, there is a section of colon at the junction of the descending and sigmoid which demonstrates marked irregular wall thickening. Within the wall, there are small pockets of fluid suggested measuring up to 2 cm in diameter. No intraperitoneal loculated fluid collection seen. There is a small amount of fluid adjacent to this portion of the colon and there is stranding in the surrounding fat. Only a few colonic diverticula are present. This is the same general area where pathology was present previously. The abnormality is stable to slightly worsened compared to that time. There are some postsurgical changes noted in the left lower abdomen. There are postsurgical changes noted within the right lower quadrant. The prostate gland is normal in size. Prominent degenerative changes are present within the spinal column. Impression: There remains an abnormal segment of large intestine, at the junction of the descending and sigmoid colon. The findings are stable to progressed from the previous exam, and now there are small foci of fluid suggested within the wall of the bowel which could represent interstitial abscess. The patient is stated to clinically have C. Difficile and colitis. These radiographic findings are consistent with infectious colitis, inflammatory bowel disease, diverticulitis, or inflammatory malignancy. 2. Mild distention of the gallbladder, without other findings to indicate gallbladder pathology. This may simply be from the patient being n.p.o. The CT exam was performed using one or more of the following dose reduction techniques: Automated exposure control, adjustment of the mA and/or kV according to patient size, or use of iterative reconstruction technique. PROCEDURE INTERPRETED AT [facility] DEPARTMENT OF RADIOLOGY Final Report Signed by: Dr. Josephine Lake
--- NOTE | 2016-11-22 18:05 | Oncology History&Physical ---
History of Present Illness Chief complaint: Clostridium difficile enteritis/typhlitis History of present illness: Mr. Edwards is a 76 year old male with history of non-Hodgkin's lymphoma approximately 5 years prior. He was treated by Dr. Ricki Jung at that time with FCR chemotherapy. Over the last several months he has had a worsening pancytopenia. This was evaluated with bone marrow biopsy and is notable for acute myelogenous leukemia. The patient has recently received his second monthly dose of decitabine chemotherapy administered days 1 through 5 intravenously. Has been in the swing bed only [facility] for about a week. He began having low-grade fever and diarrhea and a stool culture was positive for Clostridium difficile. It was reported today. The patient was also reported to have severe leukopenia with a white cell count of 300. His absolute neutrophil count is 0. His platelet count was reported as 136,000. His hemoglobin was 9.5. He has developed renal failure since October 19. His serum creatinine today is 1.6. In addition his total bilirubin is 2.0 and his transaminases are elevated. He has been in a swing bed and is obviously deteriorating now and this is a terminal condition. Past medical history: No known allergies Debility. Patient is quite debilitated after recent hospitalization. He will be started on PT and OT. Will try to get him back to his baseline * Acute myelogenous leukemia. Patient will continue treatment per Dr. Sanz on discharge. He has significant pancytopenia. Will check his blood counts 3 times a week * DVT. Discontinuing apixaban at this point * Diabetes. Will keep him on a sliding scale and his medications * Hypertension. Blood pressure is stable * Discussed with patient and his daughter. She understands that he is gravely ill and not likely to survive at this point. I am discontinuing all current medications and we are going to change his status to comfort measures only. This was discussed with his daughter. (1) Acute myelogenous leukemia see present illness (2) Hypertension At this point this is not a problem.Blood pressure 118/71, pulse 125 respirations 24. (3) Diabetes Status: Acute Current Visit: Yes Status: Acute Current Visit: No Medical,Surgical,& Family Hx - Medical History Cardio: History of: Hypertension Neurology: No history of: Seizures HEENT: History of: HEENT Problems (sinuses) Endocrine: History of: Diabetes Mellitus (IDDM), Dyslipidemia Hematology: History of: Hematologic Cancer (leukemia) - Surgical History Cardiac Surgeries: Patient Denies: Cardiac Catheterization HEENT Surgeries: Patient denies: Tonsilectomy & Adenoidectomy Abdominal Surgeries: Surgical HX of: Appendectomy (2011), Colonoscopy - Family History Family History: Reports;: Family Diabetes - Social History Smoking Status: Never smoker Frequency of Alcohol Use: None Type of Drug Use: None Physical examination: General: The patient is acutely ill but actually does not complain of much pain. Eyes: Normal lids and conjunctivae. ENT: His trachea is midline. He has no neck masses. His hearing is normal. Lungs: Breath sounds are actually normal without rubs, rales or rhonchi. There is symmetrical unlabored chest motion with respiration. Cardiovascular: His heart rhythm is regular without murmur, gallop or rub. There is no jugular venous distention, clubbing or cyanosis. Abdomen: His abdomen is distended. I cannot hear bowel sounds. There is no significant tenderness. Musculoskeletal: He is generally weak but there is no focal muscle atrophy or bone or joint deformity. Neurologic: Cranial nerves II through XII are intact. There are no focal neurologic deficits. Psychiatric: The patient is moribund. I am not sure how much he understands at this point. Impression: Clostridium difficile colitis/typhlitis secondary to AML acute myelogenous leukemia severe neutropenia with an absolute neutrophil count of 0 diabetes mellitus history of hypertension At this point we are going to keep the patient comfortable. I have explained this to the family. We will begin a Dilaudid MANAGER CASH. He will need to be isolated because of his history of C. difficile positive cultures of the stool. He had blood cultures at the [facility] and I am going to cover him with Merrem as well as Flagyl. His prognosis is grave. I do not think he will survive 24 hours. Home Medications Medication Instructions Recorded Confirmed Type Apixaban [Eliquis] 5 mg PO QPM 10/11/16 11/22/16 History Atorvastatin [Lipitor] 40 mg PO DAILY 10/11/16 11/22/16 History Ezetimibe [Zetia] 10 mg PO DAILY 10/11/16 11/22/16 History Glimepiride [Amaryl] 4 mg PO BID W/MEALS 10/11/16 11/22/16 History Insulin Aspart [NovoLOG FlexPen] 10 unit SUBCUT BID 10/11/16 11/22/16 History Losartan [Cozaar] 50 mg PO DAILY 10/11/16 11/22/16 History Acetaminophen [Acetaminophen ER 650 mg PO Q4H PRN 11/22/16 11/22/16 History Tab] Hydrocodone/Acetaminophen 1 each PO Q6H PRN 11/22/16 11/22/16 History [Hydrocodon-Acetaminoph 7.5-325] Insulin Lispro [HumaLOG] 10 unit SUBCUT BID 11/22/16 11/22/16 History Lactulose 20 gm PO Q6H PRN 11/22/16 11/22/16 History Nystatin Cream [Mycostatin Cream] 1 applic TOP BID 11/22/16 11/22/16 History Pantoprazole Tab [Protonix Tab] 40 mg PO DAILY 11/22/16 11/22/16 History Allergies Allergy/AdvReac Type Severity Reaction Status Date / Time No Known Allergies Allergy Verified 11/22/16 14:33 Medical,Surgical,& Family Hx - Medical History Cardio: History of: Hypertension Neurology: History of: Cerebrovascular Accident (dec 2015 ; no deficits.) No history of: Seizures HEENT: History of: HEENT Problems (sinuses) Endocrine: History of: Diabetes Mellitus (IDDM), Dyslipidemia Respiratory: History of: Obstructive Sleep Apnea (sleeps with cpap @ home) Musculoskeletal: History of: Back/Neck Problems (previous neck sx with rods placed.) Hematology: History of: Hematologic Cancer (leukemia. He has history of B-cell lymphoma diagnosed 6-7 years ago), Blood Disorders - Surgical History Cardiac Surgeries: Patient Denies: Cardiac Catheterization Thoracic Surgeries: Patient denies;: Lobectomy Neurologic Surgeries: Patient denies: Neurologic Surgery HEENT Surgeries: Patient denies: Tonsilectomy & Adenoidectomy Abdominal Surgeries: Surgical HX of: Appendectomy (2010), Colonoscopy Orthopedic Surgeries: Surgical HX of;: Total Knee Replacement (L&R tkr) - Family History Family History: Reports;: Family Cancer (mother-lung ca, aunt- leukemia, cousin- leukemia), Family Diabetes - Social History Smoking Status: Never smoker Frequency of Alcohol Use: None Type of Drug Use: None Exam - Constitutional Vitals: Period Temp Pulse Resp BP Sys/Asencio Pulse Ox Last 24 Hr 98.2 F-98.2 F 101-125 20-24 99-146/63-79 96-100 Results - Labs CBC & BMP: 11/22/16 15:12 11/22/16 15:12
[2016-11-22 18:22] LABS: Lymphocytes 90 % (20-55); Segmented Neutrophils 10 % (50-85)
[2016-11-22] MEDS ORDERED: PROMETHAZINE INJ 25 MG in SODIUM CHLORIDE 0.9% 50 ML IV PRN (18:22)
[2016-11-22] MEDS ORDERED: guaiFENesin 200 MG/10 ML UDCUP PO PRN (18:22)
[2016-11-22] MEDS ORDERED: MYLANTA/LIDO VISC 2:1 300 ML BOTTLE SWISH/SPIT PRN (18:22)
[2016-11-22] MEDS ORDERED: diphenhydrAMINE CAP 25 MG CAPSULE PO PRN (18:22)
[2016-11-22] MEDS ORDERED: ONDANSETRON 4 MG/2 ML VIAL IV PRN (18:22)
[2016-11-22] MEDS ORDERED: ALPRAZolam 0.25 MG TABLET PO PRN (18:22)
[2016-11-22] MEDS ORDERED: chlorproMAZINE INJ 25 MG in SODIUM CHLORIDE 0.9% 100 ML IV PRN (18:22)
[2016-11-22] MEDS ORDERED: MYLANTA/LIDO VISC 2:1 300 ML BOTTLE SWISH/SWAL PRN (18:22)
[2016-11-22] MEDS ORDERED: BENZTROPINE 2 MG/2 ML AMP IV PRN (18:22)
[2016-11-22] MEDS ORDERED: ALUMINUM/MAGNES/SIMETH MAX STR 30 ML UDCUP PO PRN (18:22)
[2016-11-22] MEDS ORDERED: TEMAZEPAM 7.5 MG CAPSULE PO PRN (18:22)
[2016-11-22] MEDS ORDERED: chlorproMAZINE 25 MG TABLET PO PRN (18:22)
[2016-11-22] MEDS ORDERED: chlorproMAZINE INJ 50 MG in SODIUM CHLORIDE 0.9% 100 ML IV PRN (18:22)
[2016-11-22] MEDS ORDERED: LACTULOSE 20 GM/30 ML UDCUP PO PRN (18:22)
[2016-11-22] MEDS ORDERED: traMADol 50 MG TABLET PO PRN (18:22)
[2016-11-22 18:23] LABS: Poikilocytosis Slight; Spherocytes Few; Tear Drop Cells Few; Total Cells Counted 100
[2016-11-22 18:24] LABS: Ovalocytes Few; Platelet Estimate Normal
[2016-11-22] MEDS ORDERED: HYDROmorphone 2 MG/1 ML VIAL IV PRN (18:29)
[2016-11-22] MEDS ORDERED: NALOXONE 0.4 MG/ML VIAL IV PRN (18:30)
[2016-11-22] MEDS ORDERED: HYDROmorphone PCA 30 MG/30 ML SYRINGE IV SCH (18:30)
--- NOTE | 2016-11-22 20:00 | General Surgery Consult Note ---
Assessment and Plan (1) Colitis Status: Acute Assessment and plan: No surgical intervention is recommended at this time. Recommend IV fluid hydration and antibiotics. I will continue to follow. Current Visit: Yes History of Present Illness Chief complaint: Abdominal pain with colitis History of present illness: Mr. Edwards is a 76 year old male who recently was diagnosed with C. difficile colitis and presents to the ER with volume depletion due to diarrhea and abdominal pain. She did not appear toxic on my exam but his situation is complicated by neutropenia related to chemotherapy and also acute myelogenous leukemia for which he is being treated by Dr. Sanz. He had a CT scan of the ER that showed some thickening in the junction of the descending and sigmoid colon a small amount of fluid and air focally around the colon. There is no free air or abscess that significant. Home Medications Medication Instructions Recorded Confirmed Type Apixaban [Eliquis] 5 mg PO QPM 10/11/16 11/22/16 History Atorvastatin [Lipitor] 40 mg PO DAILY 10/11/16 11/22/16 History Ezetimibe [Zetia] 10 mg PO DAILY 10/11/16 11/22/16 History Glimepiride [Amaryl] 4 mg PO BID W/MEALS 10/11/16 11/22/16 History Insulin Aspart [NovoLOG FlexPen] 10 unit SUBCUT BID 10/11/16 11/22/16 History Losartan [Cozaar] 50 mg PO DAILY 10/11/16 11/22/16 History Acetaminophen [Acetaminophen ER 650 mg PO Q4H PRN 11/22/16 11/22/16 History Tab] Hydrocodone/Acetaminophen 1 each PO Q6H PRN 11/22/16 11/22/16 History [Hydrocodon-Acetaminoph 7.5-325] Insulin Lispro [HumaLOG] 10 unit SUBCUT BID 11/22/16 11/22/16 History Lactulose 20 gm PO Q6H PRN 11/22/16 11/22/16 History Nystatin Cream [Mycostatin Cream] 1 applic TOP BID 11/22/16 11/22/16 History Pantoprazole Tab [Protonix Tab] 40 mg PO DAILY 11/22/16 11/22/16 History Allergies Allergy/AdvReac Type Severity Reaction Status Date / Time No Known Allergies Allergy Verified 11/22/16 14:33 Medical,Surgical,& Family Hx - Medical History Cardio: History of: Hypertension Neurology: History of: Cerebrovascular Accident (dec 2015 ; no deficits.) No history of: Seizures HEENT: History of: HEENT Problems (sinuses) Endocrine: History of: Diabetes Mellitus (IDDM), Dyslipidemia Respiratory: History of: Obstructive Sleep Apnea (sleeps with cpap @ home) Musculoskeletal: History of: Back/Neck Problems (previous neck sx with rods placed.) Hematology: History of: Hematologic Cancer (leukemia. He has history of B-cell lymphoma diagnosed 6-7 years ago), Blood Disorders - Surgical History Cardiac Surgeries: Patient Denies: Cardiac Catheterization Thoracic Surgeries: Patient denies;: Lobectomy Neurologic Surgeries: Patient denies: Neurologic Surgery HEENT Surgeries: Patient denies: Tonsilectomy & Adenoidectomy Abdominal Surgeries: Surgical HX of: Appendectomy (2010), Colonoscopy Orthopedic Surgeries: Surgical HX of;: Total Knee Replacement (L&R tkr) - Family History Family History: Reports;: Family Cancer (mother-lung ca, aunt- leukemia, cousin- leukemia), Family Diabetes - Social History Smoking Status: Never smoker Frequency of Alcohol Use: None Type of Drug Use: None - Constitutional Constitutional: Present: as per HPI - EENT Nose, mouth and throat: Present: as per HPI - Cardiovascular Cardiovascular: Present: as per HPI - Respiratory Respiratory: Present: as per HPI - Gastrointestinal Gastrointestinal: Present: as per HPI - Genitourinary Genitourinary: Present: as per HPI - Musculoskeletal Musculoskeletal: Present: as per HPI - Neurological Neurological: Present: as per HPI - Endocrine Endocrine: Present: as per HPI Hematologic/Lymphatic: Present: as per HPI Exam - Constitutional Vitals: Period Temp Pulse Resp BP Sys/Asencio Pulse Ox Last 24 Hr 98.2 F-98.2 F 101-128 18-24 99-146/62-79 96-100 General appearance: no acute distress, over weight - Head Head exam: Present: normal inspection, normocephalic - Eye Eye exam: Present: EOMI Pupils: Present: VALENTE - ENT ENT exam: Present: normal exam Mouth exam: Present: normal external inspection, normal voice - Neck Neck exam: Present: normal inspection, trachea midline - Respiratory Respiratory exam: Present: clear to auscultation bilaterally. Absent: accessory muscle use, chest wall tenderness - Cardiovascular Cardiovascular exam: Present: tachycardia. Absent: irregular rhythm, systolic murmur - GI/Abdominal GI/Abdominal exam: Present: tenderness (There is mild left lower quadrant tenderness without peritoneal sign), soft. Absent: rebound - Extremities Exam Extremities exam: Present: normal inspection, normal capillary refill - Back Exam Back exam: Present: normal inspection - Neurological Exam Neurological exam: Present: alert, oriented X3 Speech: Present: normal - Skin Skin exam: Present: normal color, warm Quality Measures - VTE Contraindication to Pharmacological VTE Prophylaxis: High Risk of Bleeding Results - Labs CBC & BMP: 11/22/16 15:12 11/22/16 15:12 - Diagnostic Findings Procedure: CT Abdomen and Pelvis: image reviewed by me, report reviewed by me ( Thickening and fluid around the colon and the junction of the sigmoid and descending colon)
[2016-11-22 20:24] LABS: Hematocrit 23.6 VOL% (42.0-52.0); Hemoglobin 8.3 GM/DL (14.0-18.0); Lymphocytes # 0.1 10*3/uL (1.4-4.0); Lymphocytes % 87.5 % (21.2-54.2); Mean Corpuscular HGB Conc 35.2 GM/DL (32-36); Mean Corpuscular Hemoglobin 30 PG (27-34); Mean Corpuscular Volume 84.3 FL (87-102); Mean Platelet Volume 9.7 FL (9.6-12.0); Monocytes % 6.3 % (1.7-12.7); Neutrophils % 6.2 % (38.7-73.9); Red Cell Distribution Width 13.8 % (9.3-17.3)
[2016-11-22 20:25] LABS: Platelet Count 107 T/CUMM (130-400)
[2016-11-22] MEDS: ACETAMINOPHEN 325 MG TABLET PO PRN (20:25)
[2016-11-22 20:26] LABS: White Blood Count 0.2 T/CUMM (4-12)
[2016-11-22 20:46] LABS: Albumin 1.9 G/DL (3.4-5.0); Bilirubin,Total 1.4 MG/DL (0.2-1.0); Magnesium 1.6 MG/DL (1.8-2.4); Osmolality,Calculated 271.5 MOS/KG (273-304); Potassium 3.6 MMOL/L (3.5-5.1); Uric Acid 4.9 MG/DL (3.5-7.2)
[2016-11-22] MEDS: DEXTROSE 5% NACL 0.45% 1,000 ML IV SCH (21:43)
[2016-11-22] MEDS: HYDROmorphone PCA 30 MG/30 ML SYRINGE IV SCH (21:44)
[2016-11-22] MEDS: metroNIDAZOLE INJ 500 MG in PREMIX 1 EACH IV SCH (21:52)
[2016-11-22] MEDS: MEROPENEM 1,000 MG in SODIUM CHLORIDE 0.9% 100 ML IV SCH (21:52)
[2016-11-22 22:21] LABS: Lymphocytes 100 % (20-55); Platelet Estimate Decreased; Total Cells Counted 100
[2016-11-22 22:22] LABS: Ovalocytes Few; Poikilocytosis Slight; Spherocytes Few; Tear Drop Cells Few
[2016-11-23] MEDS: metroNIDAZOLE INJ 500 MG in PREMIX 1 EACH IV SCH ×3 (03:10→15:29)
[2016-11-23] MEDS: DEXTROSE 5% NACL 0.45% 1,000 ML IV SCH (03:48)
[2016-11-23] MEDS: MEROPENEM 1,000 MG in SODIUM CHLORIDE 0.9% 100 ML IV SCH ×2 (08:09→23:21)
--- NOTE | 2016-11-23 08:49 | Oncology Progress Note ---
Oncology Subjective PN Interval history: Patient well known to me and chart reviewed with events of the last 24 hours. This morning the patient is on comfort measures only with continuous INDUSTRIAL WASTE INSPECTOR. He is lethargic but will respond to voice. I am going to adjust the INDUSTRIAL WASTE INSPECTOR for 2 and as needed dosing. His and 1 daughter were present today. The patient was last seen by me approximately 2-1/2 weeks ago when he was discharged from [facility] to [facility]. He has required intermittent transfusions per the family's report while at swing bed. It does not appear also by their history that he was able to ambulate any significant amounts. Left leg DVT was noted and documented previously. He is not currently anticoagulated. His other daughter and son are believed to be in route. At this time I am going to continue with current orders but have discussed possibly discontinuing antibiotics. He is on IV fluids and these will also be continued for the present time. I am not planning to pursue further transfusions. Exam - Constitutional Vitals: Period Temp Pulse Resp BP Sys/Asencio Pulse Ox Last 24 Hr 96.9 F-101.6 F 90-128 18-24 98-146/54-79 91-100 Results - Labs CBC & BMP: 11/22/16 19:59 11/22/16 19:58 Quality Measures - VTE Contraindication to Pharmacological VTE Prophylaxis: High Risk of Bleeding
[2016-11-24] MEDS: DEXTROSE 5% NACL 0.45% 1,000 ML IV SCH ×4 (00:54→18:52)
[2016-11-24] MEDS: metroNIDAZOLE INJ 500 MG in PREMIX 1 EACH IV SCH ×4 (00:58→16:15)
[2016-11-24] MEDS: HYDROmorphone PCA 30 MG/30 ML SYRINGE IV SCH (00:59)
--- NOTE | 2016-11-24 09:13 | Physician Query Form ---
CLICK EDIT DOCUMENT TO SELECT QUERY ANSWER --> OK --> SIGN Christiane Delgado RN Clinical Telephone Interceptor Operator W) [phone] (f) [phone] [email or web address] PROVIDERS: Make your selection(s) from the choices in EACH section by typing an "x" and enter comments in the comment section. Please use your independent medical judgment in providing your response. This request does not imply that any particular answer is desired or expected. CLINICAL INDICATORS: (Providers should not edit this section) Based on documentation of "The patient has recently received his second monthly dose of decitabine chemotherapy. He has significant pancytopenia. His situation is complicated by neutropenia related to chemotherapy and also acute myelogenous leukemia". Based on the above, could you clarify the appropriate diagnosis, if significant , that supports the above abnormalities and additional evaluation, monitoring, and/or treatment rendered: ( ) Pt. has chemo-induced pancytopenia ( ) Pt. has pancytopenia due to chemotherapy and acute myelogenous leukemia ( x) Pt. has pancytopenia due to acute myelogenous leukemia only ( ) Other, please specify: ( ) Clinically unable to determine COMMENTS: PLEASE ALSO DOCUMENT RESPONSE IN PROGRESS NOTES AND/OR DISCHARGE SUMMARY Use of terms such as suspected, likely, or probable (associated with a specific diagnosis that is being evaluated, monitored, or treated as if it exists) are acceptable and can be restated in the discharge summary if not ruled out. MTDD
[2016-11-24] MEDS: MEROPENEM 1,000 MG in SODIUM CHLORIDE 0.9% 100 ML IV SCH (09:43)
--- NOTE | 2016-11-24 09:46 | Oncology Progress Note ---
Oncology Subjective PN Interval history: Patient awake and interactive this morning. He denies pain or dyspnea. I discussed case with several family members. 1 of his daughters desires for aggressive care. I have agreed to pursue labs and further transfusions while hospitalized. I described this as basically supportive care. I do not plan to pursue further chemotherapy. His performance status is a 4 at this time. His son and 1 of his daughters seem to be agreeable to more of a palliative approach. I do not think his is totally reliable in her decision-making capacity. He reports 2-3 loose bowel movements yesterday. This seems to be improved from a colitis standpoint. Continuing intravenous Flagyl. He is also on broad- spectrum penicillin with negative blood cultures. We will check labs today and supplement electrolytes as needed as well as blood product support while hospitalized. I did discuss that some tough decisions may need to be made regarding discharge plans etc. Exam - Constitutional Vitals: Period Temp Pulse Resp BP Sys/Asencio Pulse Ox Last 24 Hr 97.0 F-98.1 F 71-117 18-20 113-125/51-64 92-97 Results - Labs CBC & BMP: 11/22/16 19:59 11/22/16 19:58 Quality Measures - VTE Contraindication to Pharmacological VTE Prophylaxis: High Risk of Bleeding
[2016-11-24 15:08] LABS: Hematocrit 20.9 VOL% (42.0-52.0); Hemoglobin 7.3 GM/DL (14.0-18.0); Lymphocytes # 0.2 10*3/uL (1.4-4.0); Lymphocytes % 76.2 % (21.2-54.2); Mean Corpuscular HGB Conc 34.9 GM/DL (32-36); Mean Corpuscular Hemoglobin 30 PG (27-34); Mean Corpuscular Volume 84.6 FL (87-102); Mean Platelet Volume 10.1 FL (9.6-12.0); Monocytes % 14.3 % (1.7-12.7); Neutrophils % 9.5 % (38.7-73.9); Platelet Count 98 T/CUMM (130-400); Red Blood Count 2.47 MC/CUMM (3.8-5.5); Red Cell Distribution Width 13.9 % (9.3-17.3)
[2016-11-24 15:11] LABS: White Blood Count 0.2 T/CUMM (4-12)
[2016-11-24] MEDS ORDERED: SODIUM CHLORIDE 0.9% 250 ML IV PRN (15:36)
[2016-11-24 15:38] LABS: Lymphocytes 100 % (20-55); Total Cells Counted 25
[2016-11-24 15:39] LABS: Platelet Estimate Decreased
[2016-11-24] MEDS: ACETAMINOPHEN 325 MG TABLET PO PRN (21:00)
[2016-11-24] MEDS: DESITIN 4OZ/NYSTATIN 15 GRAM MIXTURE PASTE TOP SCH (21:34)
[2016-11-25] MEDS: MEROPENEM 1,000 MG in SODIUM CHLORIDE 0.9% 100 ML IV SCH ×3 (00:21→22:18)
[2016-11-25] MEDS: metroNIDAZOLE INJ 500 MG in PREMIX 1 EACH IV SCH ×5 (01:21→23:20)
[2016-11-25] MEDS: DEXTROSE 5% NACL 0.45% 1,000 ML IV SCH ×3 (01:26→17:17)
[2016-11-25 06:11] LABS: Hematocrit 26.7 VOL% (42.0-52.0); Hemoglobin 9.3 GM/DL (14.0-18.0); Lymphocytes # 0.2 10*3/uL (1.4-4.0); Mean Corpuscular HGB Conc 34.8 GM/DL (32-36); Mean Corpuscular Hemoglobin 29 PG (27-34); Mean Corpuscular Volume 82.2 FL (87-102); Mean Platelet Volume 10.5 FL (9.6-12.0); Monocytes % 14.3 % (1.7-12.7); Neutrophils % 4.7 % (38.7-73.9); Platelet Count 98 T/CUMM (130-400); Red Blood Count 3.25 MC/CUMM (3.8-5.5); Red Cell Distribution Width 14.2 % (9.3-17.3)
[2016-11-25 06:16] LABS: White Blood Count 0.2 T/CUMM (4-12)
--- NOTE | 2016-11-25 06:26 | Event Note ---
This patient has been changed to comfort measures only. I will sign off and see as needed.
[2016-11-25 06:39] LABS: Albumin 1.6 G/DL (3.4-5.0); Bilirubin,Total 1.1 MG/DL (0.2-1.0); Calcium 7.2 MG/DL (8.5-10.1); Total Protein 4.3 G/DL (6.4-8.3)
[2016-11-25 06:40] LABS: Magnesium 1.8 MG/DL (1.8-2.4); Osmolality,Calculated 284.4 MOS/KG (273-304)
[2016-11-25 06:46] LABS: Hypochromasia 2+; Lymphocytes 83 % (20-55); Microcytosis 2+; Total Cells Counted 100
[2016-11-25 06:47] LABS: Platelet Estimate Decreased
[2016-11-25] MEDS: DESITIN 4OZ/NYSTATIN 15 GRAM MIXTURE PASTE TOP SCH ×2 (08:59→22:30)
[2016-11-25] MEDS ORDERED: ACETAMINOPHEN 325 MG TABLET PO PRN (09:00)
--- NOTE | 2016-11-25 09:04 | Oncology Progress Note ---
Oncology Subjective PN Interval history: Patient with low-grade fever overnight. His right lower extremity was brought to my attention by his daughter with a very painful and reddened area inferior to the medial gastroc. This is concerning for infection but could also be a thrombosis. Doppler ultrasound is ordered. The patient's anticoagulation is continued as of this morning with platelet count around 96,000. He is actually not had a bowel movement since yesterday which bodes well for the treatment of his colitis. We are now awaiting further BMs to attempt to collect negative stools. Case management is looking into [facility] though I feel his rehab potential is quite low. His labs also indicate prerenal azotemia with IV fluids to be escalated today. Patient remains on antibiotics. Exam - Constitutional Vitals: Period Temp Pulse Resp BP Sys/Asencio Pulse Ox Last 24 Hr 96.8 F-100.3 F 89-112 18-20 110-165/54-82 92-99 Results - Labs CBC & BMP: 11/25/16 05:23 11/25/16 05:23 Quality Measures - VTE Contraindication to Pharmacological VTE Prophylaxis: High Risk of Bleeding
[2016-11-25] MEDS: PANTOPRAZOLE 40 MG TABLET PO SCH (10:16)
[2016-11-25] MEDS: LOSARTAN 50 MG TABLET PO SCH (10:16)
[2016-11-25] MEDS: NYSTATIN CREAM 15 GM TUBE TOP SCH ×2 (10:23→22:30)
[2016-11-25] MEDS: APIXABAN 5 MG TABLET PO SCH ×2 (11:12→22:18)
--- NOTE | 2016-11-25 13:00 | Ultrasound Report ---
Right lower extremity venous Doppler. Grayscale, color-flow, and spectral analysis performed and interpreted. Comparison is made to a previous bilateral study of October 27, 2010. Color flow and Doppler are noted within the right common femoral vein and greater saphenous vein. There is complete occlusion of the superficial femoral vein and popliteal vein This is a worsened finding compared to the 2011 exam. Impression: Extensive deep venous thrombosis involving the right lower extremity, including almost all of the femoral vein and popliteal vein. This critical test result was communicated by the scanning technologist to the patient's RN. PROCEDURE INTERPRETED AT [facility] DEPARTMENT OF RADIOLOGY Final Report Signed by: Dr. Josephine Lake
[2016-11-25] MEDS: HYDROmorphone PCA 30 MG/30 ML SYRINGE IV SCH (17:17)
[2016-11-25] MEDS ORDERED: APIXABAN 5 MG TABLET PO SCH (19:00)
[2016-11-26] MEDS: metroNIDAZOLE INJ 500 MG in PREMIX 1 EACH IV SCH ×3 (04:24→16:06)
[2016-11-26 07:17] LABS: Hematocrit 25.6 VOL% (42.0-52.0); Hemoglobin 8.9 GM/DL (14.0-18.0); Lymphocytes # 0.2 10*3/uL (1.4-4.0); Lymphocytes % 72.7 % (21.2-54.2); Mean Corpuscular HGB Conc 34.8 GM/DL (32-36); Mean Corpuscular Hemoglobin 29 PG (27-34); Mean Corpuscular Volume 82.8 FL (87-102); Mean Platelet Volume 10.6 FL (9.6-12.0); Monocytes % 9.1 % (1.7-12.7); Neutrophils % 18.2 % (38.7-73.9); Platelet Count 89 T/CUMM (130-400); Red Blood Count 3.09 MC/CUMM (3.8-5.5); Red Cell Distribution Width 14.6 % (9.3-17.3)
[2016-11-26 07:23] LABS: White Blood Count 0.2 T/CUMM (4-12)
[2016-11-26 07:51] LABS: Hypochromasia Slight; Lymphocytes 80 % (20-55); Microcytosis 3+; Platelet Estimate Decreased; Segmented Neutrophils 20 % (50-85); Total Cells Counted 100
[2016-11-26 07:59] LABS: Albumin 1.5 G/DL (3.4-5.0); Bilirubin,Total 0.9 MG/DL (0.2-1.0); Calcium 7.3 MG/DL (8.5-10.1); Magnesium 1.9 MG/DL (1.8-2.4); Osmolality,Calculated 286.4 MOS/KG (273-304); Potassium 3.7 MMOL/L (3.5-5.1); Total Protein 4.2 G/DL (6.4-8.3)
[2016-11-26] MEDS: DEXTROSE 5% NACL 0.45% 1,000 ML IV SCH ×2 (09:22→22:09)
[2016-11-26] MEDS: APIXABAN 5 MG TABLET PO SCH ×2 (09:23→20:42)
[2016-11-26] MEDS: LOSARTAN 50 MG TABLET PO SCH (09:23)
[2016-11-26] MEDS: PANTOPRAZOLE 40 MG TABLET PO SCH (09:23)
[2016-11-26] MEDS: HYDROmorphone PCA 30 MG/30 ML SYRINGE IV SCH ×2 (09:23→16:30)
[2016-11-26] MEDS: MAGNESIUM HYDROXIDE SUSP 30 ML UDCUP PO PRN ×2 (09:23→20:41)
[2016-11-26] MEDS: DESITIN 4OZ/NYSTATIN 15 GRAM MIXTURE PASTE TOP SCH ×2 (09:24→20:42)
[2016-11-26] MEDS: MEROPENEM 1,000 MG in SODIUM CHLORIDE 0.9% 100 ML IV SCH ×2 (09:24→20:41)
[2016-11-26] MEDS: NYSTATIN CREAM 15 GM TUBE TOP SCH ×2 (09:24→20:42)
[2016-11-26] MEDS: INSULIN REGULAR 100 UNIT/ML SUBCUT SCH ×3 (12:35→20:41)
[2016-11-26] MEDS: GLIMEPIRIDE 4 MG TABLET PO SCH (16:06)
--- NOTE | 2016-11-26 16:11 | Oncology Progress Note ---
Oncology Subjective PN Interval history: Patient remaines stable. He is afebrile. There was thrombosis noted on right lower extremity ultrasound and he is now receiving anticoagulation despite thrombocytopenia. His lab parameters are notable for severe neutropenia and anemia also. I have discussed disposition today with the patient and his son and daughter. We are still looking into some type of fpc facility though they are aware that home with hospice would also be an option should he not be accepted to another treating facility His C. difficile seems much improved as witnessed by the fact he has not had further bowel movements. We have actually given mild stimulants today in the form of milk of magnesia. He is comfortable on room air. He still has a CHASER HELPER at bedside with demand dosing only with approximately 5 injections over the last 24 hours. Exam - Constitutional Vitals: Period Temp Pulse Resp BP Sys/Asencio Pulse Ox Last 24 Hr 97.5 F-99.3 F 84-102 18-20 98-148/52-74 93-100 Results - Labs CBC & BMP: 11/26/16 06:03 11/26/16 06:03 Quality Measures - VTE Contraindication to Pharmacological VTE Prophylaxis: High Risk of Bleeding
--- NOTE | 2016-11-26 17:30 | XRay Report ---
Portable chest. Indication: Respiratory evaluation. Comparison: November 18, 2016. Linear areas of atelectasis again noted in the right midlung field. Platelike area of atelectasis in the left lung base. No definite change from the previous. The heart size is normal. The pulmonary vasculature is normal. No consolidation or pleural effusion. Degenerative changes of the spinal column. Chemo-Port is in satisfactory position. Degenerative changes of both shoulders. Impression: Stable areas of atelectasis bilaterally. PROCEDURE INTERPRETED AT [facility] DEPARTMENT OF RADIOLOGY Final Report Signed by: Dr. Josephine Lake
[2016-11-26] MEDS: metroNIDAZOLE 500 MG TABLET PO SCH (21:05)
[2016-11-27] MEDS: metroNIDAZOLE 500 MG TABLET PO SCH ×2 (04:02→09:49)
[2016-11-27 05:07] LABS: Hematocrit 25.1 VOL% (42.0-52.0); Hemoglobin 8.8 GM/DL (14.0-18.0); Lymphocytes # 0.2 10*3/uL (1.4-4.0); Mean Corpuscular HGB Conc 35.1 GM/DL (32-36); Mean Corpuscular Hemoglobin 29 PG (27-34); Mean Platelet Volume 10.1 FL (9.6-12.0); Monocytes # 0.1 10*3/uL (0.11-0.8); Platelet Count 93 T/CUMM (130-400); Red Blood Count 3.06 MC/CUMM (3.8-5.5); Red Cell Distribution Width 14.3 % (9.3-17.3)
[2016-11-27 05:12] LABS: White Blood Count 0.3 T/CUMM (4-12)
[2016-11-27 06:17] LABS: Band Neutrophils 5 % (0-10); Hypochromasia 2+; Lymphocytes 68 % (20-55); Platelet Estimate Decreased; Segmented Neutrophils 11 % (50-85); Total Cells Counted 100
[2016-11-27 06:18] LABS: Anisocytosis 1+; Microcytosis 1+
[2016-11-27 06:48] LABS: Albumin 1.4 G/DL (3.4-5.0); Bilirubin,Total 1.2 MG/DL (0.2-1.0); Calcium 7.4 MG/DL (8.5-10.1); Magnesium 2.1 MG/DL (1.8-2.4); Osmolality,Calculated 284.4 MOS/KG (273-304); Potassium 3.6 MMOL/L (3.5-5.1); Total Protein 4.3 G/DL (6.4-8.3)
[2016-11-27] MEDS: MEROPENEM 1,000 MG in SODIUM CHLORIDE 0.9% 100 ML IV SCH (09:48)
[2016-11-27] MEDS: DESITIN 4OZ/NYSTATIN 15 GRAM MIXTURE PASTE TOP SCH (09:49)
[2016-11-27] MEDS: PANTOPRAZOLE 40 MG TABLET PO SCH (09:49)
[2016-11-27] MEDS: NYSTATIN CREAM 15 GM TUBE TOP SCH (09:49)
[2016-11-27] MEDS: LOSARTAN 50 MG TABLET PO SCH (09:49)
[2016-11-27] MEDS: INSULIN REGULAR 100 UNIT/ML SUBCUT SCH ×2 (09:49→12:56)
[2016-11-27] MEDS: APIXABAN 5 MG TABLET PO SCH (09:49)
[2016-11-27] MEDS: GLIMEPIRIDE 4 MG TABLET PO SCH (09:49)
[2016-11-27] MEDS: DEXTROSE 5% NACL 0.45% 1,000 ML IV SCH (09:50)
--- NOTE | 2016-11-27 09:53 | Discharge Summary ---
Hospital Course - Hospital Course Hospital Course: Mr. Edwards is a patient with prior non-Hodgkin's lymphoma treated with multiagent chemotherapy around 2010. 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 His past medical history is notable for thrombophilia with prolonged anticoagulation as well as prior vena cava filter placement. The patient was admitted to [facility] in transfer from [facility]. During his hospitalization he has required transfusion of red blood cells. His platelets have remained at an acceptable level of approximately 90, 000. He was off anticoagulation for several days with a left DVT diagnosed 3 weeks earlier. He developed a painful lesion inferior to the right gastrocnemius muscle and ultrasound did confirm a right sided thrombosis. He was started on Eliquis 5 mg twice daily. This is to be continued at discharge though the dose has been adjusted to 2.5 twice daily based on his age, mild thrombocytopenia, and elevated creatinine. He has been seen by physical therapy and occupational therapy and has difficulty with weightbearing and ambulation at this time. We have discussed discharge disposition and whether further care should include strictly hospice and palliative type measures or whether we should pursue basic medical care such as further transfusions and antibiotics. The patient is a DO NOT RESUSCITATE wishes for best supportive care which would include transfusion and antibiotics. It is doubtful that I am going to give further chemotherapy as I have not seen a significant improvement. For this reason we are not pursuing home hospice but pursuing swing bed placement. This will allow him to continue to be monitored in an inpatient setting and also received labs and antibiotics, whether these be IV or p.o. We are currently treating C. difficile colitis with oral Flagyl. This should be continued at least 7 more days and therapy should be tailored to obtaining negative stool samples. A consideration would of course also be to add oral vancomycin if refractory to Flagyl. At this point I am planning to see him in the office around December 07. I have forwarded orders for labs Wednesday to include CBC and basic metabolic panel. Discharge Plan - Discharge Medications New Glimepiride [Amaryl] 4 mg PO BID W/MEALS tablet metroNIDAZOLE TAB [Flagyl Cap/Tab] 500 mg PO Q6H tablet Acetaminophen Tab [Tylenol Tab] 650 mg PO Q4H PRN tablet PRN Reason: Fever Apixaban [Eliquis] 2.5 mg PO BID tablet Insulin Regular [HumuLIN R] See Protocol SUBCUT ACHS unit Continue Nystatin Cream [Mycostatin Cream] 1 applic TOP BID Hydrocodone/Acetaminophen [Hydrocodon-Acetaminoph 7.5-325] 1 each PO Q6H PRN PRN Reason: Pain Acetaminophen [Acetaminophen ER Tab] 650 mg PO Q4H PRN PRN Reason: Pain Losartan [Cozaar] 50 mg PO DAILY Glimepiride [Amaryl] 4 mg PO BID W/MEALS Pantoprazole Tab [Protonix Tab] 40 mg PO DAILY Discontinued Insulin Aspart [NovoLOG FlexPen] 10 unit SUBCUT BID Ezetimibe [Zetia] 10 mg PO DAILY Atorvastatin [Lipitor] 40 mg PO DAILY Lactulose 20 gm PO Q6H PRN PRN Reason: Constipation Apixaban [Eliquis] 5 mg PO QPM Insulin Lispro [HumaLOG] 10 unit SUBCUT BID - Follow Up or Referral - Forms/Instructions Exam - Constitutional Vitals: Period Temp Pulse Resp BP Sys/Asencio Pulse Ox Last 24 Hr 97.2 F-99.3 F 82-105 18-21 129-170/63-74 90-95 Discharge Results Procedures and tests throughout hospitalization: Pending Orders 11/22/16 15:12 Blood Culture Stat Labs on day of discharge: Labs from last 24 hours 11/27/16 11/27/16 11/26/16 04:32 04:32 19:44 WBC 0.3 L* D RBC 3.06 L Hgb 8.8 L Hct 25.1 L MCV 82.0 L MCH 29 MCHC 35.1 RDW 14.3 Plt Count 93 L MPV 10.1 Neut % (Auto) 8.0 L Lymph % (Auto) 72.0 H [place] % (Auto) 20.0 H Eos % (Auto) 0.0 Baso % (Auto) 0.0 Neut # (Auto) 0.0 L Lymph # (Auto) 0.2 L [place] # (Auto) 0.1 L Eos # (Auto) 0.0 Baso # (Auto) 0.0 Total Counted 100 Immature Gran % 0.0 Nucleated RBC % 0.0 Immature Gran # 0.00 Segmented Neutrophils 11 L Band Neutrophils 5 Lymphocytes 68 H Monocytes 16 H Nucleated RBCs # 0.00 Platelet Estimate Decreased Hypochromasia 2+ Anisocytosis 1+ Microcytosis 1+ Sodium 133 L Potassium 3.6 Chloride 99 Carbon Dioxide 24 Anion Gap 13.6 BUN 47 H Creatinine 1.50 H GFR Calculation 63 BUN/Creatinine Ratio 31.00 H Glucose 233 H POC Glucose 289 H Calculated Osmolality 284.4 Calcium 7.4 L Magnesium 2.1 Total Bilirubin 1.20 H AST 44 H ALT 48 Alkaline Phosphatase 173 H Total Protein 4.3 L Albumin 1.4 L Globulin 2.9 Albumin/Globulin Ratio 0.4 L 11/26/16 11/26/16 15:37 11:13 WBC RBC Hgb Hct MCV MCH MCHC RDW Plt Count MPV Neut % (Auto) Lymph % (Auto) [place] % (Auto) Eos % (Auto) Baso % (Auto) Neut # (Auto) Lymph # (Auto) [place] # (Auto) Eos # (Auto) Baso # (Auto) Total Counted Immature Gran % Nucleated RBC % Immature Gran # Segmented Neutrophils Band Neutrophils Lymphocytes Monocytes Nucleated RBCs # Platelet Estimate Hypochromasia Anisocytosis Microcytosis Sodium Potassium Chloride Carbon Dioxide Anion Gap BUN Creatinine GFR Calculation BUN/Creatinine Ratio Glucose POC Glucose 257 H 323 H Calculated Osmolality Calcium Magnesium Total Bilirubin AST ALT Alkaline Phosphatase Total Protein Albumin Globulin Albumin/Globulin Ratio Preliminary micro results at discharge 11/22/16 15:12 Blood Culture - Preliminary Blood No growth at 3 days 11/22/16 15:12 Blood Culture - Preliminary Blood No growth at 3 days DS: Provider Date of admission: 11/22/16 18:22 Primary care physician: Jesse Austin, Attending physician on admission: Fan Thomas MD Consults: 11/23/16 01:02 Consult to Dietitian [CONS] Routine Reason for Dietitian: Dietary Consult 11/24/16 09:47 Consult to Case Mgmt/Social Srvs [CONS] Routine Reason for Case Mgmt/Social Srvs: Swingbed/SNF/Detention Consult Comment: check into swingbed in [place] 11/24/16 09:49 Consult to Occupational Therapy [CONS] Routine Reason for Occupational Therapy: Other Consult Comment: swingbed placement PT [Consult to Physical Therapy] [CONS] Routine Reason for Physical Therapy: Other Consult Comment: swing bed placement Discharging clinician: Fan Sanz MD
[2016-11-27] MEDS: HYDROmorphone PCA 30 MG/30 ML SYRINGE IV SCH (11:40)
[2016-11-27 11:54] VITALS: BP 133/67
== END 2016-11-27 12:00 | disposition swing bed (61) | DRG 841 ==
LOC: EDBD → EDUNIT# → N.ED 14:19 → N.EDINP 18:22 → N.5E 19:28
PROVIDERS: ADMIT Specialist; ATTEND Specialist

== ENCOUNTER 2017-07-28 10:38 | Inpatient (IN) ==
[2017-07-28] MEDS ORDERED: GLUCAGON 1 MG VIAL IM PRN ×2 (12:00→12:10)
[2017-07-28] MEDS ORDERED: DEXTROSE 50% 25 GM/50 ML VIAL IV PRN ×2 (12:00→12:10)
[2017-07-28] MEDS ORDERED: ONDANSETRON 4 MG/2 ML VIAL IV PRN (12:11)
[2017-07-28 12:48] LABS: Hematocrit 26.6 VOL% (42.0-52.0); Immature Granulocytes % 3.7 %; Immature Granulocytes Absolute 0.01 #; Lymphocytes # 0.2 10*3/uL (1.4-4.0); Lymphocytes % 85.2 % (21.2-54.2); Mean Corpuscular HGB Conc 33.8 GM/DL (32-36); Mean Corpuscular Hemoglobin 29 PG (27-34); Mean Corpuscular Volume 85.8 FL (87-102); Mean Platelet Volume 10.9 FL (9.6-12.0); Monocytes % 3.7 % (1.7-12.7); Neutrophils % 7.4 % (38.7-73.9); Platelet Count 45 T/CUMM (130-400); Red Cell Distribution Width 15.9 % (9.3-17.3)
[2017-07-28 12:53] LABS: White Blood Count 0.3 T/CUMM (4-12)
[2017-07-28 13:06] LABS: Hypochromasia 1+; Lymphocytes 80 % (20-55); Microcytosis Slight; Ovalocytes Slight; Platelet Estimate Decreased; Segmented Neutrophils 20 % (50-85); Total Cells Counted 100
[2017-07-28 13:15] LABS: Albumin 3.4 G/DL (3.4-5.0); Bilirubin,Total 0.9 MG/DL (0.2-1.0); Osmolality,Calculated 277.1 MOS/KG (273-304); Potassium 4.5 MMOL/L (3.5-5.1)
[2017-07-28 15:34] LABS: Sedimentation Rate-Westergren 95 MM/HR (0-20)
[2017-07-28] MEDS: GLIMEPIRIDE 4 MG TABLET PO SCH (17:24)
[2017-07-28] MEDS: INSULIN REGULAR 100 UNIT/ML SUBCUT SCH ×2 (20:01→20:55)
[2017-07-28] MEDS: VANCOMYCIN INJ 1,500 MG in SODIUM CHLORIDE 0.9% 500 ML IV SCH (20:55)
[2017-07-28] MEDS ORDERED: SODIUM CHLORIDE 0.9% 1,000 ML IV SCH (23:59)
[2017-07-29 05:45] LABS: Hematocrit 22.7 VOL% (42.0-52.0); Hemoglobin 7.8 GM/DL (14.0-18.0); Lymphocytes # 0.4 10*3/uL (1.4-4.0); Lymphocytes % 89.7 % (21.2-54.2); Mean Corpuscular HGB Conc 34.4 GM/DL (32-36); Mean Corpuscular Hemoglobin 29 PG (27-34); Mean Corpuscular Volume 84.7 FL (87-102); Mean Platelet Volume 10.9 FL (9.6-12.0); Monocytes % 2.6 % (1.7-12.7); Neutrophils % 7.7 % (38.7-73.9); Platelet Count 41 T/CUMM (130-400); Red Blood Count 2.68 MC/CUMM (3.8-5.5); Red Cell Distribution Width 15.3 % (9.3-17.3)
[2017-07-29 05:53] LABS: White Blood Count 0.4 T/CUMM (4-12)
[2017-07-29] MEDS: INSULIN REGULAR 100 UNIT/ML SUBCUT SCH ×4 (07:50→20:44)
[2017-07-29 08:09] LABS: Hypochromasia 1+; Lymphocytes 100 % (20-55); Microcytosis 1+; Total Cells Counted 100
[2017-07-29 08:10] LABS: Ovalocytes Slight; Platelet Estimate Decreased
[2017-07-29] MEDS ORDERED: fentaNYL 100 MCG/2 ML VIAL ONE (08:11)
[2017-07-29] MEDS ORDERED: SODIUM CHLORIDE 0.9% 100 ML IV ONE (08:11)
[2017-07-29] MEDS ORDERED: PROPOFOL 200 MG/20 ML VIAL IV ONE (08:11)
[2017-07-29] MEDS: VANCOMYCIN INJ 1,500 MG in SODIUM CHLORIDE 0.9% 500 ML IV SCH ×2 (09:31→20:43)
[2017-07-29] MEDS: PANTOPRAZOLE 40 MG TABLET PO SCH (11:00)
[2017-07-29] MEDS: APIXABAN 2.5 MG TABLET PO SCH (11:00)
[2017-07-29] MEDS: LOSARTAN 50 MG TABLET PO SCH (11:00)
[2017-07-29] MEDS: GLIMEPIRIDE 4 MG TABLET PO SCH ×2 (11:00→19:35)
[2017-07-29] MEDS: EZETIMIBE 10 MG TABLET PO SCH (11:00)
[2017-07-29] MEDS: ATORVASTATIN 40 MG TABLET PO SCH (11:00)
[2017-07-29] MEDS ORDERED: SODIUM CHLORIDE 0.9% 1,000 ML IV PRN (12:44)
[2017-07-30 05:24] LABS: Hematocrit 27.1 VOL% (42.0-52.0); Hemoglobin 9.3 GM/DL (14.0-18.0); Immature Granulocytes % 2.9 %; Immature Granulocytes Absolute 0.01 #; Lymphocytes # 0.3 10*3/uL (1.4-4.0); Lymphocytes % 88.6 % (21.2-54.2); Mean Corpuscular HGB Conc 34.3 GM/DL (32-36); Mean Corpuscular Hemoglobin 29 PG (27-34); Mean Corpuscular Volume 84.4 FL (87-102); Mean Platelet Volume 11.7 FL (9.6-12.0); Neutrophils % 8.5 % (38.7-73.9); Platelet Count 43 T/CUMM (130-400); Red Blood Count 3.21 MC/CUMM (3.8-5.5); Red Cell Distribution Width 14.6 % (9.3-17.3)
[2017-07-30 05:30] LABS: White Blood Count 0.4 T/CUMM (4-12)
[2017-07-30 06:02] LABS: Lymphocytes 100 % (20-55); Platelet Estimate Decreased; Total Cells Counted 100
[2017-07-30 06:03] LABS: Anisocytosis Slight; Polychromasia Slight
[2017-07-30] MEDS: EZETIMIBE 10 MG TABLET PO SCH (10:15)
[2017-07-30] MEDS: APIXABAN 2.5 MG TABLET PO SCH (10:16)
[2017-07-30] MEDS: GLIMEPIRIDE 4 MG TABLET PO SCH ×2 (10:16→17:28)
[2017-07-30] MEDS: ATORVASTATIN 40 MG TABLET PO SCH (10:16)
[2017-07-30] MEDS: PANTOPRAZOLE 40 MG TABLET PO SCH (10:16)
[2017-07-30] MEDS: LOSARTAN 50 MG TABLET PO SCH (10:16)
[2017-07-30] MEDS: INSULIN REGULAR 100 UNIT/ML SUBCUT SCH ×4 (11:39→20:06)
[2017-07-30] MEDS: VANCOMYCIN INJ 1,500 MG in SODIUM CHLORIDE 0.9% 500 ML IV SCH ×2 (11:40→17:27)
[2017-07-30] MEDS: PIPERACILLIN/TAZOBACTAM 3,375 MG in SODIUM CHLORIDE 0.9% 100 ML IV SCH ×2 (12:08→20:06)
[2017-07-30] MEDS: POLYETHYLENE GLYCOL POWDER 17 GM PACK PO SCH (20:06)
[2017-07-30] MEDS: ACETAMINOPHEN 325 MG TABLET PO PRN (20:06)
[2017-07-31] MEDS: PIPERACILLIN/TAZOBACTAM 3,375 MG in SODIUM CHLORIDE 0.9% 100 ML IV SCH ×3 (03:29→21:13)
[2017-07-31 04:09] LABS: Eosinophils % 2.3 % (0.00-10.9); Hematocrit 28.8 VOL% (42.0-52.0); Hemoglobin 10.3 GM/DL (14.0-18.0); Lymphocytes # 0.4 10*3/uL (1.4-4.0); Lymphocytes % 81.8 % (21.2-54.2); Mean Corpuscular HGB Conc 35.8 GM/DL (32-36); Mean Corpuscular Hemoglobin 29 PG (27-34); Mean Corpuscular Volume 82.1 FL (87-102); Monocytes % 4.5 % (1.7-12.7); Neutrophils # 0.1 10*3/uL (1.4-7.4); Neutrophils % 11.4 % (38.7-73.9); Platelet Count 43 T/CUMM (130-400); Red Blood Count 3.51 MC/CUMM (3.8-5.5); Red Cell Distribution Width 14.6 % (9.3-17.3)
[2017-07-31 04:15] LABS: White Blood Count 0.4 T/CUMM (4-12)
[2017-07-31 05:23] LABS: Hypochromasia 1+; Lymphocytes 80 % (20-55); Microcytosis Slight; Ovalocytes Slight; Platelet Estimate Decreased; Total Cells Counted 100
[2017-07-31] MEDS: INSULIN REGULAR 100 UNIT/ML SUBCUT SCH ×4 (08:09→20:52)
[2017-07-31] MEDS: VANCOMYCIN INJ 1,500 MG in SODIUM CHLORIDE 0.9% 500 ML IV SCH (08:38)
[2017-07-31] MEDS: POLYETHYLENE GLYCOL POWDER 17 GM PACK PO SCH (08:39)
[2017-07-31] MEDS: PANTOPRAZOLE 40 MG TABLET PO SCH (08:39)
[2017-07-31] MEDS: LOSARTAN 50 MG TABLET PO SCH (08:39)
[2017-07-31] MEDS: ATORVASTATIN 40 MG TABLET PO SCH (08:39)
[2017-07-31] MEDS: APIXABAN 2.5 MG TABLET PO SCH (08:39)
[2017-07-31] MEDS: GLIMEPIRIDE 4 MG TABLET PO SCH ×2 (08:39→18:04)
[2017-07-31] MEDS: EZETIMIBE 10 MG TABLET PO SCH (08:39)
[2017-07-31] MEDS: MORPHINE 2 MG/1 ML SYRINGE IV PRN (15:38)
[2017-07-31] MEDS: ACETAMINOPHEN 325 MG TABLET PO PRN (21:18)
[2017-08-01 02:54] LABS: Eosinophils % 2.6 % (0.00-10.9); Hemoglobin 9.7 GM/DL (14.0-18.0); Lymphocytes # 0.3 10*3/uL (1.4-4.0); Lymphocytes % 78.9 % (21.2-54.2); Mean Corpuscular HGB Conc 34.6 GM/DL (32-36); Mean Corpuscular Hemoglobin 29 PG (27-34); Mean Corpuscular Volume 83.6 FL (87-102); Mean Platelet Volume 11.3 FL (9.6-12.0); Monocytes % 5.3 % (1.7-12.7); Neutrophils # 0.1 10*3/uL (1.4-7.4); Neutrophils % 13.2 % (38.7-73.9); Platelet Count 42 T/CUMM (130-400); Red Blood Count 3.35 MC/CUMM (3.8-5.5); Red Cell Distribution Width 14.4 % (9.3-17.3)
[2017-08-01 02:59] LABS: White Blood Count 0.4 T/CUMM (4-12)
[2017-08-01 03:23] LABS: Lymphocytes 70 % (20-55); Platelet Estimate Decreased; Segmented Neutrophils 30 % (50-85); Total Cells Counted 100
[2017-08-01] MEDS: VANCOMYCIN INJ 1,500 MG in SODIUM CHLORIDE 0.9% 500 ML IV SCH ×2 (03:32→23:55)
[2017-08-01] MEDS: PIPERACILLIN/TAZOBACTAM 3,375 MG in SODIUM CHLORIDE 0.9% 100 ML IV SCH ×3 (06:08→19:59)
[2017-08-01] MEDS: ACETAMINOPHEN 325 MG TABLET PO PRN (06:29)
[2017-08-01] MEDS: INSULIN REGULAR 100 UNIT/ML SUBCUT SCH ×4 (07:42→20:28)
[2017-08-01] MEDS: POLYETHYLENE GLYCOL POWDER 17 GM PACK PO SCH (10:08)
[2017-08-01] MEDS: LOSARTAN 50 MG TABLET PO SCH (10:08)
[2017-08-01] MEDS: GLIMEPIRIDE 4 MG TABLET PO SCH ×2 (10:08→16:52)
[2017-08-01] MEDS: ATORVASTATIN 40 MG TABLET PO SCH (10:08)
[2017-08-01] MEDS: EZETIMIBE 10 MG TABLET PO SCH (10:08)
[2017-08-01] MEDS: APIXABAN 2.5 MG TABLET PO SCH (10:08)
[2017-08-01] MEDS: PANTOPRAZOLE 40 MG TABLET PO SCH (10:08)
[2017-08-01] MEDS: MORPHINE 2 MG/1 ML SYRINGE IV PRN ×2 (10:11→13:55)
[2017-08-01] MEDS: LEVOFLOXACIN INJ 750 MG in PREMIX 1 EACH IV SCH (12:29)
[2017-08-01 16:34] LABS: Apearance,Urine CLEAR (Clear); Bilirubin,Urine Negative (Negative); Blood, Urine Small mg/dL (Negative); Glucose,Urine (UA) Negative (Negative); Ketones,Urine Negative (Negative); Nitrite,Urine Negative (Negative); Protein,Urine 30 MG/DL; RBC,Urine 1 /HPF (0-4); Squamous Epithelial Cell,Urine Occasional /HPF (0-10); Urine Color Yellow (Yellow); Urine Specific Gravity 1.014 (1.001-1.035); WBC,Urine <1 /HPF (0-6)
[2017-08-02] MEDS: PIPERACILLIN/TAZOBACTAM 3,375 MG in SODIUM CHLORIDE 0.9% 100 ML IV SCH ×3 (03:07→20:55)
[2017-08-02] MEDS: INSULIN REGULAR 100 UNIT/ML SUBCUT SCH ×4 (07:49→21:04)
[2017-08-02] MEDS: PANTOPRAZOLE 40 MG TABLET PO SCH (09:07)
[2017-08-02] MEDS: APIXABAN 2.5 MG TABLET PO SCH (09:07)
[2017-08-02] MEDS: EZETIMIBE 10 MG TABLET PO SCH (09:07)
[2017-08-02] MEDS: POLYETHYLENE GLYCOL POWDER 17 GM PACK PO SCH (09:07)
[2017-08-02] MEDS: GLIMEPIRIDE 4 MG TABLET PO SCH ×2 (09:07→18:42)
[2017-08-02] MEDS: LOSARTAN 50 MG TABLET PO SCH (09:09)
[2017-08-02] MEDS: ATORVASTATIN 40 MG TABLET PO SCH (09:09)
[2017-08-02] MEDS: LEVOFLOXACIN INJ 750 MG in PREMIX 1 EACH IV SCH (12:35)
[2017-08-02] MEDS ORDERED: MORPHINE 10 MG/1 ML VIAL ONE (13:47)
[2017-08-02] MEDS ORDERED: ONDANSETRON 4 MG/2 ML VIAL ONE (13:47)
[2017-08-02] MEDS: VANCOMYCIN INJ 1,500 MG in SODIUM CHLORIDE 0.9% 500 ML IV SCH (15:37)
[2017-08-02] MEDS: MORPHINE 2 MG/1 ML SYRINGE IV PRN (20:02)
[2017-08-03] MEDS: PIPERACILLIN/TAZOBACTAM 3,375 MG in SODIUM CHLORIDE 0.9% 100 ML IV SCH ×3 (04:58→20:21)
[2017-08-03 06:29] LABS: Eosinophils % 2.5 % (0.00-10.9); Hematocrit 24.5 VOL% (42.0-52.0); Hemoglobin 8.5 GM/DL (14.0-18.0); Immature Granulocytes Absolute 0.04 #; Lymphocytes # 0.3 10*3/uL (1.4-4.0); Mean Corpuscular HGB Conc 34.7 GM/DL (32-36); Mean Corpuscular Hemoglobin 29 PG (27-34); Mean Corpuscular Volume 82.5 FL (87-102); Mean Platelet Volume 10.8 FL (9.6-12.0); Monocytes % 7.5 % (1.7-12.7); Platelet Count 41 T/CUMM (130-400); Red Blood Count 2.97 MC/CUMM (3.8-5.5); Red Cell Distribution Width 14.2 % (9.3-17.3)
[2017-08-03 06:34] LABS: White Blood Count 0.4 T/CUMM (4-12)
[2017-08-03 06:54] LABS: Eosinophils 10 % (0-10); Hypochromasia 1+; Lymphocytes 60 % (20-55); Microcytosis 1+; Ovalocytes Few; Platelet Estimate Decreased; Segmented Neutrophils 30 % (50-85); Total Cells Counted 100
[2017-08-03 07:00] LABS: Osmolality,Calculated 273.1 MOS/KG (273-304); Potassium 3.7 MMOL/L (3.5-5.1)
[2017-08-03] MEDS: INSULIN REGULAR 100 UNIT/ML SUBCUT SCH ×4 (07:41→20:23)
[2017-08-03] MEDS: VANCOMYCIN INJ 1,500 MG in SODIUM CHLORIDE 0.9% 500 ML IV SCH (09:02)
[2017-08-03] MEDS: EZETIMIBE 10 MG TABLET PO SCH (09:03)
[2017-08-03] MEDS: ATORVASTATIN 40 MG TABLET PO SCH (09:03)
[2017-08-03] MEDS: POLYETHYLENE GLYCOL POWDER 17 GM PACK PO SCH (09:03)
[2017-08-03] MEDS: GLIMEPIRIDE 4 MG TABLET PO SCH ×2 (09:03→17:36)
[2017-08-03] MEDS: LOSARTAN 50 MG TABLET PO SCH (09:03)
[2017-08-03] MEDS: PANTOPRAZOLE 40 MG TABLET PO SCH (09:04)
[2017-08-03] MEDS: APIXABAN 2.5 MG TABLET PO SCH (09:04)
[2017-08-03] MEDS: LEVOFLOXACIN INJ 750 MG in PREMIX 1 EACH IV SCH (11:41)
[2017-08-03] MEDS: MORPHINE 2 MG/1 ML SYRINGE IV PRN (15:29)
[2017-08-04] MEDS: VANCOMYCIN INJ 1,500 MG in SODIUM CHLORIDE 0.9% 500 ML IV SCH (04:35)
[2017-08-04 06:27] LABS: Hematocrit 24.5 VOL% (42.0-52.0); Hemoglobin 8.5 GM/DL (14.0-18.0); Lymphocytes # 0.3 10*3/uL (1.4-4.0); Lymphocytes % 59.2 % (21.2-54.2); Mean Corpuscular HGB Conc 34.7 GM/DL (32-36); Mean Corpuscular Hemoglobin 29 PG (27-34); Mean Corpuscular Volume 83.1 FL (87-102); Monocytes % 8.2 % (1.7-12.7); Neutrophils # 0.2 10*3/uL (1.4-7.4); Neutrophils % 30.6 % (38.7-73.9); Platelet Count 36 T/CUMM (130-400); Red Blood Count 2.95 MC/CUMM (3.8-5.5); Red Cell Distribution Width 14.1 % (9.3-17.3)
[2017-08-04 06:28] LABS: White Blood Count 0.5 T/CUMM (4-12)
[2017-08-04 06:52] LABS: Eosinophils 10 % (0-10); Hypochromasia 1+; Lymphocytes 50 % (20-55); Microcytosis 1+; Platelet Estimate Decreased; Segmented Neutrophils 30 % (50-85); Total Cells Counted 100
[2017-08-04 06:53] LABS: Ovalocytes Slight
[2017-08-04] MEDS: INSULIN REGULAR 100 UNIT/ML SUBCUT SCH ×3 (08:30→17:25)
[2017-08-04] MEDS: PIPERACILLIN/TAZOBACTAM 3,375 MG in SODIUM CHLORIDE 0.9% 100 ML IV SCH ×2 (09:54→17:26)
[2017-08-04] MEDS: PANTOPRAZOLE 40 MG TABLET PO SCH (09:55)
[2017-08-04] MEDS: LOSARTAN 50 MG TABLET PO SCH (09:55)
[2017-08-04] MEDS: EZETIMIBE 10 MG TABLET PO SCH (09:55)
[2017-08-04] MEDS: GLIMEPIRIDE 4 MG TABLET PO SCH ×2 (09:55→17:25)
[2017-08-04] MEDS: MORPHINE 2 MG/1 ML SYRINGE IV PRN (09:55)
[2017-08-04] MEDS: ATORVASTATIN 40 MG TABLET PO SCH (09:55)
[2017-08-04] MEDS: APIXABAN 2.5 MG TABLET PO SCH (09:55)
[2017-08-04] MEDS: POLYETHYLENE GLYCOL POWDER 17 GM PACK PO SCH (09:56)
[2017-08-04] MEDS: LEVOFLOXACIN INJ 750 MG in PREMIX 1 EACH IV SCH (13:57)
[2017-08-04 16:26] VITALS: BP 165/66
== END 2017-08-04 19:10 | DRG 571 ==
LOC: N.3E 11:13
PROVIDERS: ADMIT Surgery; ATTEND Surgery

== ENCOUNTER 2017-10-07 00:26 | Inpatient (IN) ==
[2017-10-07] MEDS ORDERED: MORPHINE 4 MG/1 ML VIAL IV STA (01:07)
[2017-10-07] MEDS ORDERED: ONDANSETRON 4 MG/2 ML VIAL IV STA (01:07)
[2017-10-07 02:15] LABS: Basophils % 0.4 % (0.0-0.8); Eosinophils % 0.7 % (0.00-10.9); Immature Granulocytes % 0.4 %; Immature Granulocytes Absolute 0.01 #; Lymphocytes # 1.2 10*3/uL (1.4-4.0); Lymphocytes % 42.6 % (21.2-54.2); Mean Corpuscular HGB Conc 33.7 GM/DL (32-36); Mean Corpuscular Hemoglobin 32 PG (27-34); Mean Corpuscular Volume 94.1 FL (87-102); Mean Platelet Volume 9.6 FL (9.6-12.0); Monocytes # 0.1 10*3/uL (0.11-0.8); Neutrophils # 1.4 10*3/uL (1.4-7.4); Neutrophils % 52.9 % (38.7-73.9); Red Blood Count 2.02 MC/CUMM (3.8-5.5); Red Cell Distribution Width 19.6 % (9.3-17.3); White Blood Count 2.7 T/CUMM (4-12)
[2017-10-07 02:18] LABS: Platelet Count 48 T/CUMM (130-400)
[2017-10-07 02:19] LABS: Hemoglobin 6.4 GM/DL (14.0-18.0)
[2017-10-07] MEDS ORDERED: SODIUM CHLORIDE 0.9% 1,000 ML IV PRN ×5 (02:35→12:51)
[2017-10-07 02:40] LABS: Alanine Aminotransferase 31 U/L (16-61); Alkaline Phosphatase 62 U/L (45-117); Aspartate Amino Transferase 16 U/L (0-37); Blood Urea Nitrogen 39 MG/DL (7-18); Calcium 8.1 MG/DL (8.5-10.1); Glucose 283 MG/DL (74-106); Lactic Acid 2.4 MMOL/L (0.4-2.0); Osmolality,Calculated 297.4 MOS/KG (273-304); Potassium 5.1 MMOL/L (3.5-5.1); Sodium 140 MMOL/L (136-145); Total Protein 5.4 G/DL (6.4-8.3)
[2017-10-07 02:47] LABS: Troponin I Only 0.062 NG/ML (0.00-0.045)
[2017-10-07 02:55] LABS: Band Neutrophils 4 % (0-10); Eosinophils 2 % (0-10); Lymphocytes 38 % (20-55); Metamyelocytes 1 %; Segmented Neutrophils 53 % (50-85); Total Cells Counted 100
[2017-10-07 02:56] LABS: Anisocytosis 2+; Atypical Lymphocytes Few; Hypochromasia 1+; Microcytosis 2+
[2017-10-07 02:57] LABS: Platelet Estimate Decreased
[2017-10-07 03:01] LABS: Ovalocytes 1+; Tear Drop Cells 1+
[2017-10-07 03:06] LABS: PT Patient Result 10.8 SECS; Partial Thromboplastin Time 21.3 SECS (0-40)
[2017-10-07] MEDS ORDERED: AMINOCAPROIC ACID INJ 5,000 MG in SODIUM CHLORIDE 0.9% 230 ML IV SCH (03:30)
[2017-10-07] MEDS ORDERED: MORPHINE 4 MG/1 ML VIAL IV PRN (04:06)
[2017-10-07] MEDS ORDERED: ALBUTEROL 2.5 MG/3 ML NEB RESP TX PRN (04:06)
[2017-10-07] MEDS ORDERED: GLUCAGON 1 MG VIAL IM PRN (04:29)
[2017-10-07] MEDS ORDERED: DEXTROSE 50% 25 GM/50 ML VIAL IV PRN (04:29)
[2017-10-07] MEDS: ONDANSETRON 4 MG/2 ML VIAL IV PRN ×3 (05:20→13:09)
[2017-10-07] MEDS: SODIUM CHLORIDE 0.9% 1,000 ML IV SCH ×2 (05:23→14:39)
[2017-10-07] MEDS ORDERED: TRANEXAMIC ACID 1,000 MG in SODIUM CHLORIDE 0.9% 100 ML IV ONE (06:00)
[2017-10-07] MEDS ORDERED: PROMETHAZINE 25 MG/1 ML VIAL IM PRN (06:28)
[2017-10-07] MEDS ORDERED: HYDROmorphone 2 MG/1 ML VIAL IV PRN (06:28)
[2017-10-07] MEDS: fentaNYL 100 MCG/2 ML VIAL IV PRN ×5 (07:32→19:35)
[2017-10-07 08:14] LABS: Apearance,Urine Slightly Hazy (Clear); Bilirubin,Urine Negative (Negative); Blood, Urine Negative (Negative); Glucose,Urine (UA) 50 mg/dL (Negative); Ketones,Urine Negative (Negative); Nitrite,Urine Negative (Negative); Protein,Urine 100 MG/DL; RBC,Urine 4 /HPF (0-4); Urine Color Yellow (Yellow); Urine Specific Gravity 1.047 (1.001-1.035); Urine Urobilinogen < 2.0 EU/DL (0.2-1.0); WBC,Urine 1 /HPF (0-6)
[2017-10-07] MEDS: INSULIN REGULAR 100 UNIT/ML SUBCUT SCH ×4 (08:46→20:41)
[2017-10-07] MEDS: EZETIMIBE 10 MG TABLET PO SCH (08:47)
[2017-10-07 12:09] LABS: Eosinophils % 0.6 % (0.00-10.9); Hematocrit 20.5 VOL% (42.0-52.0); Immature Granulocytes % 0.6 %; Immature Granulocytes Absolute 0.01 #; Lymphocytes # 0.6 10*3/uL (1.4-4.0); Lymphocytes % 36.9 % (21.2-54.2); Mean Corpuscular HGB Conc 34.1 GM/DL (32-36); Mean Corpuscular Hemoglobin 31 PG (27-34); Mean Corpuscular Volume 90.7 FL (87-102); Mean Platelet Volume 10.5 FL (9.6-12.0); Monocytes # 0.1 10*3/uL (0.11-0.8); Monocytes % 3.8 % (1.7-12.7); Neutrophils # 0.9 10*3/uL (1.4-7.4); Neutrophils % 58.1 % (38.7-73.9); Platelet Count 83 T/CUMM (130-400); Red Blood Count 2.26 MC/CUMM (3.8-5.5); Red Cell Distribution Width 16.2 % (9.3-17.3); White Blood Count 1.6 T/CUMM (4-12)
[2017-10-07 12:48] LABS: Band Neutrophils 1 % (0-10); Eosinophils 1 % (0-10); Lymphocytes 33 % (20-55); Segmented Neutrophils 63 % (50-85); Total Cells Counted 100
[2017-10-07 12:49] LABS: Hypochromasia 1+; Microcytosis 1+; Ovalocytes Slight
[2017-10-07 12:50] LABS: Atypical Lymphocytes Few; Platelet Estimate Decreased
[2017-10-07] MEDS: ATORVASTATIN 40 MG TABLET PO SCH (20:42)
[2017-10-07 21:29] LABS: Eosinophils % 1.6 % (0.00-10.9); Hematocrit 25.4 VOL% (42.0-52.0); Hemoglobin 8.5 GM/DL (14.0-18.0); Immature Granulocytes % 0.8 %; Immature Granulocytes Absolute 0.01 #; Lymphocytes # 0.5 10*3/uL (1.4-4.0); Lymphocytes % 41.6 % (21.2-54.2); Mean Corpuscular HGB Conc 33.5 GM/DL (32-36); Mean Corpuscular Hemoglobin 29 PG (27-34); Mean Corpuscular Volume 87.9 FL (87-102); Monocytes # 0.1 10*3/uL (0.11-0.8); Monocytes % 4.8 % (1.7-12.7); Neutrophils # 0.6 10*3/uL (1.4-7.4); Neutrophils % 51.2 % (38.7-73.9); Red Blood Count 2.89 MC/CUMM (3.8-5.5); Red Cell Distribution Width 16.7 % (9.3-17.3); White Blood Count 1.3 T/CUMM (4-12)
[2017-10-07 21:39] LABS: Mean Platelet Volume 10.8 FL (9.6-12.0); Platelet Count 60 T/CUMM (130-400)
[2017-10-07 21:46] LABS: Eosinophils 5 % (0-10); Lymphocytes 40 % (20-55); Platelet Estimate Decreased; Segmented Neutrophils 55 % (50-85); Total Cells Counted 100
[2017-10-08] MEDS: INSULIN REGULAR 100 UNIT/ML SUBCUT SCH ×5 (00:18→23:17)
[2017-10-08] MEDS: SODIUM CHLORIDE 0.9% 1,000 ML IV SCH ×3 (00:31→21:46)
[2017-10-08] MEDS: fentaNYL 100 MCG/2 ML VIAL IV PRN ×6 (05:05→20:04)
[2017-10-08 06:46] LABS: Albumin 2.8 G/DL (3.4-5.0); Bilirubin,Total 0.6 MG/DL (0.2-1.0); Calcium 7.7 MG/DL (8.5-10.1); Osmolality,Calculated 296.3 MOS/KG (273-304); Potassium 5.9 MMOL/L (3.5-5.1); Total Protein 5.6 G/DL (6.4-8.3)
[2017-10-08 06:52] LABS: Eosinophils # 0.1 10*3/uL (0.0-0.87); Eosinophils % 4.2 % (0.00-10.9); Hematocrit 23.4 VOL% (42.0-52.0); Hemoglobin 7.6 GM/DL (14.0-18.0); Immature Granulocytes % 0.8 %; Immature Granulocytes Absolute 0.01 #; Lymphocytes # 0.6 10*3/uL (1.4-4.0); Lymphocytes % 52.1 % (21.2-54.2); Mean Corpuscular HGB Conc 32.5 GM/DL (32-36); Mean Corpuscular Hemoglobin 30 PG (27-34); Mean Corpuscular Volume 92.5 FL (87-102); Mean Platelet Volume 10.7 FL (9.6-12.0); Monocytes # 0.1 10*3/uL (0.11-0.8); Monocytes % 5.9 % (1.7-12.7); Neutrophils # 0.4 10*3/uL (1.4-7.4); Platelet Count 44 T/CUMM (130-400); Red Blood Count 2.53 MC/CUMM (3.8-5.5); Red Cell Distribution Width 17.4 % (9.3-17.3); White Blood Count 1.2 T/CUMM (4-12)
[2017-10-08] MEDS ORDERED: SODIUM POLYSTYRENE SULFATE 15 GM/60 ML BOTTLE PO ONE (07:35)
[2017-10-08 07:56] LABS: Band Neutrophils 4 % (0-10); Lymphocytes 64 % (20-55); Platelet Estimate Decreased; Segmented Neutrophils 32 % (50-85); Total Cells Counted 100
[2017-10-08] MEDS: EZETIMIBE 10 MG TABLET PO SCH (08:32)
[2017-10-08] MEDS ORDERED: SODIUM CHLORIDE 0.9% 1,000 ML IV PRN (09:27)
[2017-10-08] MEDS ORDERED: FUROSEMIDE 40 MG/4 ML VIAL IV ONE (14:49)
[2017-10-08 18:02] LABS: Eosinophils % 2.8 % (0.00-10.9); Hematocrit 25.3 VOL% (42.0-52.0); Hemoglobin 8.7 GM/DL (14.0-18.0); Lymphocytes # 0.4 10*3/uL (1.4-4.0); Lymphocytes % 54.2 % (21.2-54.2); Mean Corpuscular HGB Conc 34.4 GM/DL (32-36); Mean Corpuscular Hemoglobin 31 PG (27-34); Mean Corpuscular Volume 89.7 FL (87-102); Mean Platelet Volume 10.3 FL (9.6-12.0); Monocytes % 2.8 % (1.7-12.7); Neutrophils # 0.3 10*3/uL (1.4-7.4); Neutrophils % 40.2 % (38.7-73.9); Platelet Count 46 T/CUMM (130-400); Red Blood Count 2.82 MC/CUMM (3.8-5.5); Red Cell Distribution Width 15.9 % (9.3-17.3)
[2017-10-08 18:11] LABS: White Blood Count 0.7 T/CUMM (4-12)
[2017-10-08 18:21] LABS: Calcium 7.9 MG/DL (8.5-10.1); Osmolality,Calculated 292.4 MOS/KG (273-304); Potassium 4.9 MMOL/L (3.5-5.1)
[2017-10-08 19:13] LABS: Band Neutrophils 3 % (0-10); Eosinophils 3 % (0-10); Lymphocytes 61 % (20-55); Microcytosis 1+; Nucleated Red Blood Cells 1 (0-5); Platelet Estimate Decreased; Polychromasia Slight; Segmented Neutrophils 30 % (50-85); Total Cells Counted 100
[2017-10-08 19:14] LABS: Atypical Lymphocytes Many
[2017-10-08] MEDS: ATORVASTATIN 40 MG TABLET PO SCH (20:04)
[2017-10-08 22:25] LABS: Eosinophils % 2.5 % (0.00-10.9); Hematocrit 24.8 VOL% (42.0-52.0); Hemoglobin 8.8 GM/DL (14.0-18.0); Immature Granulocytes % 1.2 %; Immature Granulocytes Absolute 0.01 #; Lymphocytes # 0.4 10*3/uL (1.4-4.0); Lymphocytes % 50.6 % (21.2-54.2); Mean Corpuscular HGB Conc 35.5 GM/DL (32-36); Mean Corpuscular Hemoglobin 31 PG (27-34); Mean Corpuscular Volume 87.3 FL (87-102); Mean Platelet Volume 10.2 FL (9.6-12.0); Monocytes % 4.9 % (1.7-12.7); Neutrophils # 0.3 10*3/uL (1.4-7.4); Neutrophils % 40.8 % (38.7-73.9); Platelet Count 43 T/CUMM (130-400); Red Blood Count 2.84 MC/CUMM (3.8-5.5); Red Cell Distribution Width 15.8 % (9.3-17.3)
[2017-10-08 22:28] LABS: White Blood Count 0.8 T/CUMM (4-12)
[2017-10-08 23:47] LABS: Anisocytosis 1+
[2017-10-08 23:48] LABS: Platelet Estimate Decreased
[2017-10-09 04:52] LABS: Eosinophils % 2.8 % (0.00-10.9); Hematocrit 22.4 VOL% (42.0-52.0); Lymphocytes # 0.3 10*3/uL (1.4-4.0); Lymphocytes % 47.2 % (21.2-54.2); Mean Corpuscular HGB Conc 35.7 GM/DL (32-36); Mean Corpuscular Hemoglobin 31 PG (27-34); Mean Corpuscular Volume 86.8 FL (87-102); Mean Platelet Volume 10.7 FL (9.6-12.0); Monocytes % 2.8 % (1.7-12.7); Neutrophils # 0.3 10*3/uL (1.4-7.4); Neutrophils % 47.2 % (38.7-73.9); Platelet Count 41 T/CUMM (130-400); Red Blood Count 2.58 MC/CUMM (3.8-5.5); Red Cell Distribution Width 15.5 % (9.3-17.3)
[2017-10-09 04:58] LABS: White Blood Count 0.7 T/CUMM (4-12)
[2017-10-09] MEDS: INSULIN REGULAR 100 UNIT/ML SUBCUT SCH ×3 (05:18→18:30)
[2017-10-09 05:44] LABS: Albumin 2.9 G/DL (3.4-5.0); Bilirubin,Total 0.7 MG/DL (0.2-1.0); Calcium 7.7 MG/DL (8.5-10.1); Osmolality,Calculated 294.3 MOS/KG (273-304); Potassium 4.6 MMOL/L (3.5-5.1); Total Protein 5.2 G/DL (6.4-8.3)
[2017-10-09 06:12] LABS: Anisocytosis 1+; Band Neutrophils 1 % (0-10); Eosinophils 3 % (0-10); Lymphocytes 53 % (20-55); Myelocytes 3 %; Segmented Neutrophils 39 % (50-85); Tear Drop Cells Few; Total Cells Counted 100
[2017-10-09 06:13] LABS: Platelet Estimate Decreased
[2017-10-09 06:17] LABS: Band Neutrophils 2 % (0-10); Eosinophils 6 % (0-10); Lymphocytes 40 % (20-55); Metamyelocytes 2 %; Segmented Neutrophils 46 % (50-85); Total Cells Counted 100
[2017-10-09] MEDS: fentaNYL 100 MCG/2 ML VIAL IV PRN ×3 (07:16→15:50)
[2017-10-09] MEDS: EZETIMIBE 10 MG TABLET PO SCH (09:10)
[2017-10-09] MEDS: SODIUM CHLORIDE 0.9% 1,000 ML IV SCH ×2 (09:10→23:05)
[2017-10-09] MEDS ORDERED: BISACODYL 5 MG TABLET PO ONE (10:19)
[2017-10-09] MEDS: POLYETHYLENE GLYCOL POWDER 17 GM PACK PO SCH (10:56)
[2017-10-09] MEDS ORDERED: FUROSEMIDE 40 MG/4 ML VIAL IV ONE (13:00)
[2017-10-09] MEDS: ATORVASTATIN 40 MG TABLET PO SCH (22:30)
[2017-10-10] MEDS: INSULIN REGULAR 100 UNIT/ML SUBCUT SCH ×4 (00:44→21:08)
[2017-10-10] MEDS: fentaNYL 100 MCG/2 ML VIAL IV PRN ×7 (02:27→23:12)
[2017-10-10] MEDS ORDERED: amLODIPine 5 MG TABLET PO ONE (09:25)
[2017-10-10] MEDS: SODIUM CHLORIDE 0.9% 1,000 ML IV SCH (09:35)
[2017-10-10] MEDS: POLYETHYLENE GLYCOL POWDER 17 GM PACK PO SCH (09:36)
[2017-10-10] MEDS: EZETIMIBE 10 MG TABLET PO SCH (09:36)
[2017-10-10 10:10] LABS: Eosinophils % 1.9 % (0.00-10.9); Hematocrit 28.1 VOL% (42.0-52.0); Hemoglobin 9.7 GM/DL (14.0-18.0); Lymphocytes # 0.3 10*3/uL (1.4-4.0); Lymphocytes % 55.8 % (21.2-54.2); Mean Corpuscular HGB Conc 34.5 GM/DL (32-36); Mean Corpuscular Hemoglobin 30 PG (27-34); Mean Platelet Volume 10.3 FL (9.6-12.0); Monocytes % 5.8 % (1.7-12.7); Neutrophils # 0.2 10*3/uL (1.4-7.4); Neutrophils % 36.5 % (38.7-73.9); Red Blood Count 3.23 MC/CUMM (3.8-5.5); Red Cell Distribution Width 14.6 % (9.3-17.3)
[2017-10-10 10:20] LABS: White Blood Count 0.5 T/CUMM (4-12)
[2017-10-10 10:21] LABS: Platelet Count 27 T/CUMM (130-400)
[2017-10-10 10:32] LABS: Lymphocytes 80 % (20-55); Segmented Neutrophils 10 % (50-85); Total Cells Counted 100
[2017-10-10 10:33] LABS: Hypochromasia 1+
[2017-10-10 10:34] LABS: Microcytosis 1+; Ovalocytes Slight
[2017-10-10 10:35] LABS: Platelet Estimate Decreased
[2017-10-10] MEDS: ATORVASTATIN 40 MG TABLET PO SCH (20:32)
[2017-10-11] MEDS: SODIUM CHLORIDE 0.9% 1,000 ML IV SCH ×2 (01:17→01:21)
[2017-10-11] MEDS: fentaNYL 100 MCG/2 ML VIAL IV PRN ×6 (01:18→21:28)
[2017-10-11] MEDS: INSULIN REGULAR 100 UNIT/ML SUBCUT SCH ×4 (01:22→19:04)
[2017-10-11 05:43] LABS: Eosinophils % 2.5 % (0.00-10.9); Hematocrit 26.7 VOL% (42.0-52.0); Hemoglobin 9.2 GM/DL (14.0-18.0); Lymphocytes # 0.2 10*3/uL (1.4-4.0); Mean Corpuscular HGB Conc 34.5 GM/DL (32-36); Mean Corpuscular Hemoglobin 30 PG (27-34); Mean Corpuscular Volume 85.9 FL (87-102); Mean Platelet Volume 9.9 FL (9.6-12.0); Monocytes % 7.5 % (1.7-12.7); Neutrophils # 0.1 10*3/uL (1.4-7.4); Platelet Count 41 T/CUMM (130-400); Red Blood Count 3.11 MC/CUMM (3.8-5.5); Red Cell Distribution Width 14.4 % (9.3-17.3)
[2017-10-11 05:46] LABS: White Blood Count 0.4 T/CUMM (4-12)
[2017-10-11 06:08] LABS: Albumin 2.6 G/DL (3.4-5.0); Bilirubin,Total 1.4 MG/DL (0.2-1.0); Osmolality,Calculated 287.7 MOS/KG (273-304); Potassium 4.5 MMOL/L (3.5-5.1); Total Protein 5.7 G/DL (6.4-8.3)
[2017-10-11 06:24] LABS: Lymphocytes 85 % (20-55); Myelocytes 5 %; Segmented Neutrophils 10 % (50-85); Total Cells Counted 100
[2017-10-11 06:25] LABS: Anisocytosis 1+; Tear Drop Cells Few
[2017-10-11 06:26] LABS: Platelet Estimate Decreased
[2017-10-11] MEDS: POLYETHYLENE GLYCOL POWDER 17 GM PACK PO SCH (08:46)
[2017-10-11] MEDS: EZETIMIBE 10 MG TABLET PO SCH (08:46)
[2017-10-11] MEDS: amLODIPine 10 MG TABLET PO SCH (09:18)
[2017-10-11] MEDS: ATORVASTATIN 40 MG TABLET PO SCH (20:32)
[2017-10-12] MEDS: fentaNYL 100 MCG/2 ML VIAL IV PRN ×7 (00:23→21:02)
[2017-10-12] MEDS: INSULIN REGULAR 100 UNIT/ML SUBCUT SCH ×4 (00:34→18:35)
[2017-10-12 06:18] LABS: Eosinophils % 2.4 % (0.00-10.9); Hematocrit 30.6 VOL% (42.0-52.0); Hemoglobin 10.7 GM/DL (14.0-18.0); Lymphocytes # 0.2 10*3/uL (1.4-4.0); Lymphocytes % 58.5 % (21.2-54.2); Mean Corpuscular Hemoglobin 30 PG (27-34); Mean Corpuscular Volume 86.4 FL (87-102); Mean Platelet Volume 10.9 FL (9.6-12.0); Monocytes % 7.3 % (1.7-12.7); Neutrophils # 0.1 10*3/uL (1.4-7.4); Neutrophils % 31.8 % (38.7-73.9); Platelet Count 29 T/CUMM (130-400); Red Blood Count 3.54 MC/CUMM (3.8-5.5); Red Cell Distribution Width 14.1 % (9.3-17.3)
[2017-10-12 06:31] LABS: White Blood Count 0.4 T/CUMM (4-12)
[2017-10-12 06:46] LABS: Calcium 8.8 MG/DL (8.5-10.1); Osmolality,Calculated 286.8 MOS/KG (273-304); Potassium 4.5 MMOL/L (3.5-5.1)
[2017-10-12 06:55] LABS: Atypical Lymphocytes Few; Hypochromasia 1+; Lymphocytes 85 % (20-55); Microcytosis 1+; Platelet Estimate Decreased; Segmented Neutrophils 10 % (50-85); Total Cells Counted 100
[2017-10-12] MEDS: POLYETHYLENE GLYCOL POWDER 17 GM PACK PO SCH (08:40)
[2017-10-12] MEDS: EZETIMIBE 10 MG TABLET PO SCH (08:42)
[2017-10-12] MEDS: amLODIPine 10 MG TABLET PO SCH (08:42)
[2017-10-12] MEDS ORDERED: SODIUM CHLORIDE 0.9% 1,000 ML IV PRN (12:25)
[2017-10-12] MEDS ORDERED: ACETAMINOPHEN 325 MG TABLET PO PRN (17:29)
[2017-10-12] MEDS: LEVOFLOXACIN INJ 750 MG in PREMIX 1 EACH IV SCH (18:35)
[2017-10-12] MEDS ORDERED: VANCOMYCIN INJ 1,000 MG in SODIUM CHLORIDE 0.9% 250 ML IV ONE ×2 (20:00→23:00)
[2017-10-12] MEDS: ATORVASTATIN 40 MG TABLET PO SCH (21:01)
[2017-10-13] MEDS: fentaNYL 100 MCG/2 ML VIAL IV PRN ×2 (00:12→06:13)
[2017-10-13] MEDS: INSULIN REGULAR 100 UNIT/ML SUBCUT SCH ×4 (00:12→19:14)
[2017-10-13 01:39] LABS: Apearance,Urine CLOUDY (Clear); Bacteria,Urine Occasional /HPF (Few); Bilirubin,Urine Negative (Negative); Blood, Urine Large mg/dL (Negative); Glucose,Urine (UA) 50 mg/dL (Negative); Ketones,Urine Negative (Negative); Mucus,Urine Occasional /LPF (Occasional); Nitrite,Urine Negative (Negative); Protein,Urine 100 MG/DL; RBC,Urine 134 /HPF (0-4); Squamous Epithelial Cell,Urine Occasional /HPF (0-10); Urine Color Amber (Yellow); Urine Specific Gravity 1.014 (1.001-1.035); WBC,Urine 23 /HPF (0-6)
[2017-10-13] MEDS ORDERED: FUROSEMIDE 20 MG/2 ML VIAL IV ONE (07:54)
[2017-10-13 08:00] LABS: Hematocrit 32.1 VOL% (42.0-52.0); Hemoglobin 11.6 GM/DL (14.0-18.0); Mean Corpuscular HGB Conc 36.1 GM/DL (32-36); Mean Corpuscular Hemoglobin 30 PG (27-34); Mean Corpuscular Volume 84.3 FL (87-102); Mean Platelet Volume 10.5 FL (9.6-12.0); Red Blood Count 3.81 MC/CUMM (3.8-5.5); Red Cell Distribution Width 14.2 % (9.3-17.3)
[2017-10-13 08:01] LABS: Lymphocytes # 0.2 10*3/uL (1.4-4.0); Lymphocytes % 60.6 % (21.2-54.2); Monocytes # 0.1 10*3/uL (0.11-0.8); Monocytes % 15.2 % (1.7-12.7); Neutrophils # 0.1 10*3/uL (1.4-7.4); Neutrophils % 24.2 % (38.7-73.9)
[2017-10-13 08:08] LABS: White Blood Count 0.3 T/CUMM (4-12)
[2017-10-13 08:09] LABS: Platelet Count 20 T/CUMM (130-400)
[2017-10-13 08:25] LABS: Lymphocytes 80 % (20-55); Platelet Estimate Decreased; Segmented Neutrophils 20 % (50-85); Total Cells Counted 100
[2017-10-13 08:26] LABS: Anisocytosis 1+
[2017-10-13] MEDS: POLYETHYLENE GLYCOL POWDER 17 GM PACK PO SCH (08:49)
[2017-10-13] MEDS: MEROPENEM 500 MG in SYRINGE 1 EACH IV SCH ×2 (08:50→16:01)
[2017-10-13] MEDS: amLODIPine 10 MG TABLET PO SCH (08:51)
[2017-10-13] MEDS: EZETIMIBE 10 MG TABLET PO SCH (08:51)
[2017-10-13] MEDS: MORPHINE ER 15 MG TABLET PO SCH ×2 (12:23→21:00)
[2017-10-14] MEDS: MEROPENEM 500 MG in SYRINGE 1 EACH IV SCH ×4 (00:42→21:13)
[2017-10-14] MEDS: INSULIN REGULAR 100 UNIT/ML SUBCUT SCH ×4 (02:31→18:56)
[2017-10-14 06:43] LABS: Albumin 2.5 G/DL (3.4-5.0); Bilirubin,Total 1.3 MG/DL (0.2-1.0); Osmolality,Calculated 290.1 MOS/KG (273-304); Potassium 4.3 MMOL/L (3.5-5.1); Total Protein 5.3 G/DL (6.4-8.3)
[2017-10-14 07:23] LABS: Eosinophils % 2.6 % (0.00-10.9); Hematocrit 27.3 VOL% (42.0-52.0); Lymphocytes # 0.3 10*3/uL (1.4-4.0); Lymphocytes % 68.4 % (21.2-54.2); Mean Corpuscular HGB Conc 36.6 GM/DL (32-36); Mean Corpuscular Hemoglobin 31 PG (27-34); Mean Corpuscular Volume 83.7 FL (87-102); Mean Platelet Volume 10.2 FL (9.6-12.0); Monocytes % 10.5 % (1.7-12.7); Neutrophils # 0.1 10*3/uL (1.4-7.4); Neutrophils % 18.5 % (38.7-73.9); Red Blood Count 3.26 MC/CUMM (3.8-5.5); Red Cell Distribution Width 14.1 % (9.3-17.3)
[2017-10-14 07:36] LABS: Platelet Count 29 T/CUMM (130-400); White Blood Count 0.4 T/CUMM (4-12)
[2017-10-14 08:37] LABS: Hypochromasia 1+; Lymphocytes 80 % (20-55); Segmented Neutrophils 13 % (50-85); Total Cells Counted 100
[2017-10-14 08:38] LABS: Microcytosis 1+
[2017-10-14 08:39] LABS: Ovalocytes Slight; Platelet Estimate Decreased
[2017-10-14] MEDS: amLODIPine 10 MG TABLET PO SCH (09:45)
[2017-10-14] MEDS: MORPHINE ER 15 MG TABLET PO SCH ×2 (09:45→21:11)
[2017-10-14] MEDS: POLYETHYLENE GLYCOL POWDER 17 GM PACK PO SCH (09:47)
[2017-10-14] MEDS: SODIUM CHLORIDE 0.9% 1,000 ML IV SCH (18:50)
[2017-10-14] MEDS: LEVOFLOXACIN INJ 750 MG in PREMIX 1 EACH IV SCH (18:52)
[2017-10-15] MEDS: INSULIN REGULAR 100 UNIT/ML SUBCUT SCH ×3 (00:32→13:13)
[2017-10-15 05:49] LABS: Eosinophils % 2.4 % (0.00-10.9); Hematocrit 28.3 VOL% (42.0-52.0); Hemoglobin 10.1 GM/DL (14.0-18.0); Lymphocytes # 0.3 10*3/uL (1.4-4.0); Lymphocytes % 78.6 % (21.2-54.2); Mean Corpuscular HGB Conc 35.7 GM/DL (32-36); Mean Corpuscular Hemoglobin 30 PG (27-34); Mean Corpuscular Volume 83.7 FL (87-102); Mean Platelet Volume 10.2 FL (9.6-12.0); Monocytes % 7.1 % (1.7-12.7); Neutrophils # 0.1 10*3/uL (1.4-7.4); Neutrophils % 11.9 % (38.7-73.9); Red Blood Count 3.38 MC/CUMM (3.8-5.5); Red Cell Distribution Width 14.2 % (9.3-17.3)
[2017-10-15 05:57] LABS: White Blood Count 0.4 T/CUMM (4-12)
[2017-10-15 05:58] LABS: Platelet Count 22 T/CUMM (130-400)
[2017-10-15 06:19] LABS: Hypochromasia Slight; Lymphocytes 60 % (20-55); Microcytosis Slight; Ovalocytes Slight; Platelet Estimate Decreased; Segmented Neutrophils 40 % (50-85); Total Cells Counted 100
[2017-10-15 06:27] LABS: Albumin 2.1 G/DL (3.4-5.0); Bilirubin,Total 1.1 MG/DL (0.2-1.0); Calcium 8.4 MG/DL (8.5-10.1); Osmolality,Calculated 294.1 MOS/KG (273-304); Potassium 4.3 MMOL/L (3.5-5.1); Total Protein 5.6 G/DL (6.4-8.3)
[2017-10-15] MEDS: MORPHINE ER 15 MG TABLET PO SCH (09:17)
[2017-10-15] MEDS: amLODIPine 10 MG TABLET PO SCH (09:17)
[2017-10-15] MEDS: POLYETHYLENE GLYCOL POWDER 17 GM PACK PO SCH (09:18)
[2017-10-15] MEDS: MEROPENEM 500 MG in SYRINGE 1 EACH IV SCH (09:18)
[2017-10-15 12:00] VITALS: BP 154/72
[2017-10-15] MEDS ORDERED: TUBERCULIN SKIN TEST 0.1 ML SYRINGE INTRADERM ONE (14:25)
[2017-10-15] MEDS: SODIUM CHLORIDE 0.9% 1,000 ML IV SCH (17:04)
== END 2017-10-15 17:24 | DRG 698 ==
LOC: EDBD → EDUNIT# → N.ED 00:26 → SUATTDRO 04:06 → N.EDINP 04:06 → N.ICU 04:35 → N.4E 10-10 13:13
PROVIDERS: ADMIT Family Medicine; ATTEND Internal Medicine

== ENCOUNTER 2017-10-26 09:09 | Inpatient (IN) ==
[2017-10-26] MEDS ORDERED: ACETAMINOPHEN 500 MG TABLET PO PRN (09:43)
[2017-10-26] MEDS ORDERED: SODIUM CHLORIDE 0.45% 1,000 ML IV SCH (10:00)
[2017-10-26] MEDS ORDERED: ACETAMINOPHEN 650 MG SUPP RECTAL PRN (10:05)
[2017-10-26] MEDS ORDERED: NALOXONE 0.4 MG/ML VIAL IV PRN (11:54)
[2017-10-26] MEDS ORDERED: MEPERIDINE PCA 300 MG/30 ML SYRINGE IV SCH (12:00)
[2017-10-26] MEDS ORDERED: MYLANTA/LIDO VISC 2:1 300 ML BOTTLE SWISH/SWAL PRN (12:33)
[2017-10-26] MEDS ORDERED: chlorproMAZINE INJ 25 MG in SODIUM CHLORIDE 0.9% 100 ML IV PRN (12:33)
[2017-10-26] MEDS ORDERED: chlorproMAZINE INJ 50 MG in SODIUM CHLORIDE 0.9% 100 ML IV PRN (12:33)
[2017-10-26] MEDS ORDERED: guaiFENesin 200 MG/10 ML UDCUP PO PRN (12:33)
[2017-10-26] MEDS ORDERED: BENZTROPINE 2 MG/2 ML AMP IV PRN (12:33)
[2017-10-26] MEDS ORDERED: ALUMINUM/MAGNES/SIMETH MAX STR 30 ML UDCUP PO PRN (12:33)
[2017-10-26] MEDS ORDERED: TEMAZEPAM 7.5 MG CAPSULE PO PRN (12:33)
[2017-10-26] MEDS ORDERED: traMADol 50 MG TABLET PO PRN (12:33)
[2017-10-26] MEDS ORDERED: diphenhydrAMINE CAP 25 MG CAPSULE PO PRN (12:33)
[2017-10-26] MEDS ORDERED: LOPERAMIDE 2 MG CAPSULE PO PRN ×2 (12:33)
[2017-10-26] MEDS ORDERED: LACTULOSE 20 GM/30 ML UDCUP PO PRN (12:33)
[2017-10-26] MEDS ORDERED: PROMETHAZINE INJ 25 MG in SODIUM CHLORIDE 0.9% 50 ML IV PRN (12:33)
[2017-10-26] MEDS ORDERED: MAGNESIUM HYDROXIDE SUSP 30 ML UDCUP PO PRN (12:33)
[2017-10-26] MEDS ORDERED: ALPRAZolam 0.25 MG TABLET PO PRN (12:33)
[2017-10-26] MEDS ORDERED: ONDANSETRON 4 MG/2 ML VIAL IV PRN (12:33)
[2017-10-26] MEDS ORDERED: MYLANTA/LIDO VISC 2:1 300 ML BOTTLE SWISH/SPIT PRN (12:33)
[2017-10-26] MEDS ORDERED: chlorproMAZINE 25 MG TABLET PO PRN (12:33)
[2017-10-26 13:13] LABS: Basophils % 1.2 % (0.0-0.8); Hematocrit 19.4 VOL% (42.0-52.0); Hemoglobin 6.5 GM/DL (14.0-18.0); Immature Granulocytes Absolute 0.06 #; Lymphocytes # 0.5 10*3/uL (1.4-4.0); Mean Corpuscular HGB Conc 33.5 GM/DL (32-36); Mean Corpuscular Hemoglobin 30 PG (27-34); Mean Corpuscular Volume 88.2 FL (87-102); Monocytes # 0.3 10*3/uL (0.11-0.8); Monocytes % 29.1 % (1.7-12.7); Neutrophils # 0.1 10*3/uL (1.4-7.4); Neutrophils % 5.7 % (38.7-73.9); Red Cell Distribution Width 15.1 % (9.3-17.3)
[2017-10-26 13:25] LABS: White Blood Count 0.9 T/CUMM (4-12)
[2017-10-26 13:26] LABS: Platelet Count 2 T/CUMM (130-400)
[2017-10-26 13:46] LABS: Bilirubin,Total 2.3 MG/DL (0.2-1.0); Calcium 8.1 MG/DL (8.5-10.1); Osmolality,Calculated 302.2 MOS/KG (273-304); Total Protein 5.6 G/DL (6.4-8.3); Uric Acid 7.3 MG/DL (3.5-7.2)
[2017-10-26 13:48] LABS: Potassium 6.2 MMOL/L (3.5-5.1)
[2017-10-26 14:00] LABS: Eosinophils 3 % (0-10); Lymphocytes 84 % (20-55); Platelet Estimate Decreased; Segmented Neutrophils 3 % (50-85)
[2017-10-26 14:01] LABS: Atypical Lymphocytes Moderate; Microcytosis Slight
[2017-10-26 14:02] LABS: Total Cells Counted 100
[2017-10-26 16:29] VITALS: BP 112/64
== END 2017-10-26 16:29 | disposition expired | DRG 951 ==
LOC: N.4E 09:21
PROVIDERS: ADMIT Specialist; ATTEND Specialist